=== PATIENT | male | born 1960 | race Caucasian/White ===

== ENCOUNTER 2020-09-10 05:53 | Emergency (ER) | payer MEDICARE, MEDICAID ==
[2020-09-10] MEDS ORDERED: Sodium Chloride 0.9% 10 ML Syringe FLUSH PRN (06:06)
--- NOTE | 2020-09-10 07:52 | EDM.PDOC ---
ED HPI GENERAL MEDICAL PROBLEM - General Chief Complaint: General Stated Complaint: altered mental status Time Seen by Provider: 09/10/20 06:10 Source of Information: Reports: RN Notes Reviewed History Limitations: Reports: No Limitations, Altered Mental Status, Other (non- verbal) - History of Present Illness INITIAL COMMENTS - FREE TEXT/NARRATIVE: Patient presented to the ED from [facility] because of altered level of consciousness, Rt facial droop and seem to be uncomfortable. He was incontinent of urine. there is no recent fever,chills, cough,cold. - Related Data Allergies Allergy/AdvReac Type Severity Reaction Status Date / Time No Known Allergies Allergy Verified 06/17/20 09:19 Home Meds: Home Meds Lidocaine 2% [Xylocaine 2% Jelly] 0.5 ml TOP Q2H PRN #60 ml 09/10/20 [Rx] Sulfamethoxazole/Trimethoprim [Bactrim Ds Tablet] 1 each PO BID #14 tablet 09/10/20 [Rx] Past Medical History Psychiatric History: Reports: Dementia Social & Family History - Family History Family Medical History: No Pertinent Family History - Tobacco Use Tobacco Use Status *Q: Unknown Ever Used Tobacco - Caffeine Use Caffeine Use: Reports: None ED ROS GENERAL - Review of Systems Review Of Systems: See Below HEENT: Reports: No Symptoms Respiratory: Reports: No Symptoms Cardiovascular: Reports: No Symptoms Endocrine: Reports: No Symptoms GI/Abdominal: Reports: No Symptoms : Reports: No Symptoms Musculoskeletal: Reports: No Symptoms Skin: Reports: No Symptoms Neurological: Reports: Other (non-verbal, No bill deficits) Psychiatric: Reports: No Symptoms Hematologic/Lymphatic: Reports: No Symptoms ED EXAM, GENERAL - Physical Exam Exam: See Below Exam Limited By: No Limitations General Appearance: Alert, No Apparent Distress Ears: Normal External Exam, Normal Canal, Hearing Grossly Normal Nose: Normal Inspection, Normal Mucosa, No Blood Throat/Mouth: Normal Inspection, Normal Lips, Normal Teeth Head: Atraumatic, Normocephalic Neck: Normal Inspection, Supple, Non-Tender, Full Range of Motion Respiratory/Chest: No Respiratory Distress, Lungs Clear, Normal Breath Sounds Cardiovascular: Normal Peripheral Pulses, Regular Rate, Rhythm, No Edema, No Gallop, No JVD, No Murmur, No Rub GI/Abdominal: Normal Bowel Sounds, Soft, Non-Tender, No Organomegaly, No Distention, No Abnormal Bruit Back Exam: Normal Inspection, Full Range of Motion Extremities: Normal Inspection, Normal Range of Motion, Non-Tender, No Pedal Edema, Normal Capillary Refill Neurological: Alert, CN II-XII Intact, Normal Gait, Normal Reflexes, No Motor/Sensory Deficits Psychiatric: Normal Affect, Normal Mood Course - Vital Signs Text/Narrative:: Labs/EKG/CXR/Head CT result was reviewed and discussed with staff Bladder Scan-significant amount of uring. More than 1 L Leg bag guthrie inserted Last Recorded V/S: Last Vital Signs Temp 36.8 C 09/10/20 06:04 Pulse 66 09/10/20 06:04 Resp 18 09/10/20 06:04 BP 112/63 09/10/20 06:04 Pulse Ox 99 09/10/20 06:04 - Orders/Labs/Meds Orders: Active Orders 24 hr Category Date Time Status Guthrie Catheter Insertion [Insert Urinary Catheter] [OM. Care 09/10/20 07:45 Ordered PC] Q24H Head wo Cont [CT] Stat Exams 09/10/20 06:06 Taken Saline Lock Insert [OM.PC] Routine Oth 09/10/20 06:06 Ordered EKG 12 Lead [EK] Routine Ther 09/10/20 06:06 Ordered Labs: Laboratory Tests 09/10/20 09/10/20 09/10/20 Range/Units 06:50 06:50 06:50 WBC 4.6 (3.2-10.1) x10-3/uL RBC 3.89 L (3.90-5.90) x10(6)uL Hgb 14.6 (12.9-17.7) g/dL Hct 42.3 (38.3-50.1) % MCV 108.8 H (80.8-98.7) fL MCH 37.5 H (27.0-33.3) pg MCHC 34.5 (28.7-35.3) g/dL RDW 12.5 (12.4-15.0) % Plt Count 229 (117-477) x10(3)uL MPV 8.1 (6.7-11.0) fL Neut % (Auto) 50.1 (40.3-71.8) % Lymph % (Auto) 32.1 (15.8-45.3) % [place] % (Auto) 13.9 (5.5-15.2) % Eos % (Auto) 2.5 (0.1-6.8) % Baso % (Auto) 1.4 (0.3-3.8) % Neut # (Auto) 2.3 (1.7-6.9) x10-3/uL Lymph # (Auto) 1.5 (0.5-4.5) x10-3/uL [place] # (Auto) 0.6 (0.0-1.2) x10-3/uL Eos # (Auto) 0.1 (0.0-0.6) x10-3/uL Baso # (Auto) 0.1 (0.0-0.3) x10-3/uL PT 10.3 (9.0-11.1) sec INR 0.95 L (1.00-1.24) APTT 22.1 L (24.4-33.2) SECONDS Sodium 140 (135-145) mmol/L Potassium 4.4 (3.5-5.3) mmol/L Chloride 102 (100-110) mmol/L Carbon Dioxide 27 (21-32) mmol/L BUN 13 (7-18) mg/dL Creatinine 1.0 (0.70-1.30) mg/dL Est Cr Clr Drug Dosing 74.10 mL/min Estimated GFR (MDRD) > 60 (>60) BUN/Creatinine Ratio 13.0 (9-20) Glucose 103 (80-116) mg/dL Calcium 8.7 (8.6-10.2) mg/dL Total Bilirubin 0.5 (0.1-1.3) mg/dL AST 32 H (5-25) IU/L ALT 24 (12-36) U/L Alkaline Phosphatase 101 (56-112) IU/L Troponin I (4.0-60.3) pg/mL Total Protein 6.9 (6.0-8.0) g/dL Albumin 3.1 L (3.2-4.6) g/dL Globulin 3.8 g/dL Albumin/Globulin Ratio 0.8 Urine Color (YELLOW) Urine Appearance (CLEAR) Urine pH (5.0-6.5) Ur Specific [place] (1.010-1.025) Urine Protein (NEGATIVE) mg/dL Urine Glucose (UA) (NORMAL) mg/dL Urine Ketones (NEGATIVE) mg/dL Urine Occult Blood (NEGATIVE) Urine Nitrite (NEGATIVE) Urine Bilirubin (NEGATIVE) Urine Urobilinogen (NEGATIVE) mg/dL Ur Leukocyte Esterase (NEGATIVE) Urine RBC (0-5) Urine WBC (0-5) Ur Squamous Epith Cells (NS,R,O) Urine Bacteria (NS) 09/10/20 09/10/20 Range/Units 06:50 07:20 WBC (3.2-10.1) x10-3/uL RBC (3.90-5.90) x10(6)uL Hgb (12.9-17.7) g/dL Hct (38.3-50.1) % MCV (80.8-98.7) fL MCH (27.0-33.3) pg MCHC (28.7-35.3) g/dL RDW (12.4-15.0) % Plt Count (117-477) x10(3)uL MPV (6.7-11.0) fL Neut % (Auto) (40.3-71.8) % Lymph % (Auto) (15.8-45.3) % [place] % (Auto) (5.5-15.2) % Eos % (Auto) (0.1-6.8) % Baso % (Auto) (0.3-3.8) % Neut # (Auto) (1.7-6.9) x10-3/uL Lymph # (Auto) (0.5-4.5) x10-3/uL [place] # (Auto) (0.0-1.2) x10-3/uL Eos # (Auto) (0.0-0.6) x10-3/uL Baso # (Auto) (0.0-0.3) x10-3/uL PT (9.0-11.1) sec INR (1.00-1.24) APTT (24.4-33.2) SECONDS Sodium (135-145) mmol/L Potassium (3.5-5.3) mmol/L Chloride (100-110) mmol/L Carbon Dioxide (21-32) mmol/L BUN (7-18) mg/dL Creatinine (0.70-1.30) mg/dL Est Cr Clr Drug Dosing mL/min Estimated GFR (MDRD) (>60) BUN/Creatinine Ratio (9-20) Glucose (80-116) mg/dL Calcium (8.6-10.2) mg/dL Total Bilirubin (0.1-1.3) mg/dL AST (5-25) IU/L ALT (12-36) U/L Alkaline Phosphatase (56-112) IU/L Troponin I 11.8 (4.0-60.3) pg/mL Total Protein (6.0-8.0) g/dL Albumin (3.2-4.6) g/dL Globulin g/dL Albumin/Globulin Ratio Urine Color Yellow (YELLOW) Urine Appearance Clear (CLEAR) Urine pH 7.0 H (5.0-6.5) Ur Specific [place] 1.005 L (1.010-1.025) Urine Protein Negative (NEGATIVE) mg/dL Urine Glucose (UA) Normal (NORMAL) mg/dL Urine Ketones Negative (NEGATIVE) mg/dL Urine Occult Blood Negative (NEGATIVE) Urine Nitrite Negative (NEGATIVE) Urine Bilirubin Negative (NEGATIVE) Urine Urobilinogen Normal (NEGATIVE) mg/dL Ur Leukocyte Esterase Negative (NEGATIVE) Urine RBC 0-5 (0-5) Urine WBC 0-5 (0-5) Ur Squamous Epith Cells Rare (NS,R,O) Urine Bacteria Rare H (NS) Meds: Medications Discontinued Medications Generic Name Dose Route Start Last Admin Trade Name Freq PRN Reason Stop Dose Admin Sodium Chloride 10 ml 09/10/20 06:06 09/10/20 06:19 Sodium Chloride 0.9% 10 Ml Syringe FLUSH 10 ml ASDIRECTED PRN Administration Keep Vein Open Departure - Departure Time of Disposition: 08:00 Disposition: DC/Tfer to Longterm [facility] 61 Condition: Good Clinical Impression: Urinary retention, Overflow incontinence of urine - Discharge Information Prescriptions: Sulfamethoxazole/Trimethoprim [Bactrim Ds Tablet] 1 each PO BID #14 tablet Lidocaine 2% [Xylocaine 2% Jelly] 0.5 ml TOP Q2H PRN #60 ml PRN Reason: Pain Instructions: Urinary Incontinence, Acute Urinary Retention, Male, [id number], Sulfamethoxazole; Trimethoprim, SMX-TMP tablets, Lidocaine jelly Referrals: Audrey Riddle NP [Primary Care Provider] - Forms: ED Department Discharge Additional Instructions: Please read discharge instructions on Urinary retention and overflow incontinence Keep the guthrie until he is able to void on his own Bactrim DS twice daily for 7 days Apply viscous lidocaine to the urethral opening every 1-2 hours as needed for pain due to guthrie Follow up with your doctor this week so he can be referred to see a Neurologist(brain specialist) for possible NPH-Normal Pressure Hydrocephalus Sepsis Event Note (ED) - Evaluation Sepsis Screening Result: No Definite Risk - My Orders Last 24 Hours: My Active Orders 09/10/20 06:06 Head wo Cont [CT] Stat Saline Lock Insert [OM.PC] Routine EKG 12 Lead [EK] Routine 09/10/20 07:45 Guthrie Catheter Insertion [Insert Urinary Catheter] [OM.PC] Q24H - Assessment/Plan Last 24 Hours: My Active Orders 09/10/20 06:06 Head wo Cont [CT] Stat Saline Lock Insert [OM.PC] Routine EKG 12 Lead [EK] Routine 09/10/20 07:45 Guthrie Catheter Insertion [Insert Urinary Catheter] [OM.PC] Q24H
--- NOTE | 2020-09-10 12:26 | CR ---
INDICATION: Unresponsive episode, non-verbal - unable to follow instructions. CHEST ONE VIEW: An AP portable upright view of the chest 09/10/20 was compared with 05/07/10 and 04/13/10. The inspiration is very poor emphasizing basilar markings and making it difficult to exclude patchy bronchopneumonia. The heart did not appear enlarged. The mediastinum was unremarkable. Overlying EKG leads are noted. No consolidating pneumonia or effusion was seen. IMPRESSION: No acute process - study limited by poor inspiration making it difficult to exclude minimal patchy bronchopneumonia at the lung bases. MTDD
--- NOTE | 2020-09-10 23:13 | PCM.EKG ---
#1 Interpretation EKG Date: 09/10/20 Time: 06:38 Rhythm: NSR Rate (Beats/Min): 88 Keeler: Normal P-Wave: Present QRS: Normal ST-T: Normal QT: Normal WV/PQ Interval: 140 Comparison: NA - No Prior EKG EKG Interpretation Comments: NSR PAC
== END 2020-09-10 09:36 ==
LOC: FB.ED 05:53
DX: R33.9 Retention of urine, unspecified (principal); N39.490 Overflow incontinence; F03.90 Unspecified dementia, unspecified severity, without behavioral disturbance, psychotic disturbance, mood disturbance, and anxiety
CPT/HCPCS: 36415; 51702; 70450; 71045; 80053; 81001; 84484; 85025; 85610; 85730; 93005; 99285-25

== ENCOUNTER 2020-11-27 10:43 | Inpatient (IN) | payer MEDICARE, MEDICAID ==
[2020-11-27] MEDS ORDERED: Magnesium Oxide 400 MG Tab PO ONE (11:49)
--- NOTE | 2020-11-27 12:00 | EDM.PDOC ---
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, sitting in recliner, PO dec'd to 78%, pt is 96-100% on RA here in ED pt admitted here 5d ago with dx of influenza B and pneumonia and HF, sent home yesterday on Cefdinir and Tamiflu, has been taking meds had urinary retention and SBP 88 4d ago and his Flomax was stopped, he was sent home yesterday back on Flomax and his furosemide was held his SBP has been fine, 114 at [facility] home today and >120 here in ED, however his CxR one view yesterday showed inc'd fluid c/w his admission CxR currently not walking, had been ambulatory in past none verbal here with 2 staff members no fever, has been eating pt with neg COVID yesterday, however he has not had COVID vaccine (declined by family) and was exposed to a staff member yesterday who had a positive COVID test, staff and long term members do not wear masks in the home DNR/DNI I did a MANDEEP on this pt 3d ago when crosscovering at night when he had urinary retention and needed to be catherized twice (400 ml the first time, 700 ml the second time), MANDEEP showed normal size prostate that was not tender/boggy/asymmetric, no nodules originally indication for Flomax not clear, pt may have had urinary retention from his psych meds - Related Data Allergies Allergy/AdvReac Type Severity Reaction Status Date / Time No Known Allergies Allergy Verified 11/23/20 00:11 Home Meds: Home Meds Calcium Carbonate/Vitamin D3 [Calcium 600Mg-D3 400 Unit Sfgl] 1 cap PO BID 11/22/20 [History] Citalopram [Citalopram HBr] 30 mg PO DAILY 11/22/20 [History] Docusate Sodium [Colace] 200 mg PO DAILY 11/22/20 [History] Folic Acid 1 mg PO DAILY 11/22/20 [History] Levothyroxine Sodium [Levothyroxine] 137 mcg PO 0600 11/22/20 [History] Magnesium Chloride [Magnesium] 64 mg PO DAILY 11/22/20 [History] Melatonin 3 mg PO BEDTIME 11/22/20 [History] Mineral Oil/Pet Hy-Phl Oint [Aquaphor Healing Ointment] 1 applic TOP BID 11/22/20 [History] busPIRone [Buspar] 30 mg PO BID 11/22/20 [History] calcium polycarbophiL [Fiber Tabs] 1 tab PO BID 11/22/20 [History] polyethylene glycoL 3350 [MiraLAX] 17 gm PO MOTH 11/22/20 [History] risperiDONE 0.5 mg PO BID 11/22/20 [History] traZODone 100 mg PO BEDTIME 11/22/20 [History] Cyanocobalamin (Vitamin B-12) [Vitamin B-12] 1,000 mcg PO DAILY 11/23/20 [History] Ibuprofen 600 mg PO Q8H PRN 11/23/20 [History] Ketoconazole [Nizoral 2% Shampoo] 1 applic TOP MOWEFR 11/23/20 [History] Mineral Oil/Pet Hy-Phl Oint [Aquaphor Healing Ointment] 1 applic TOP BID 11/23/20 [History] lamoTRIgine [Lamotrigine] 100 mg PO BID 11/23/20 [History] Azithromycin 500 mg PO DAILY #1 tablet 11/26/20 [Rx] Cefdinir 300 mg PO BID #12 capsule 11/26/20 [Rx] Finasteride 5 mg PO BEDTIME #30 tablet 11/26/20 [Rx] Oseltamivir [Tamiflu] 75 mg PO BID #5 cap 11/26/20 [Rx] Past Medical History HEENT History: Reports: Impaired Vision Gastrointestinal History: Reports: Chronic Constipation Genitourinary History: Reports: BPH Neurological History: Reports: Alzheimers Disease, Other (See Below) Other Neuro History: Down's Syndrome Psychiatric History: Reports: Dementia, OCD Endocrine/Metabolic History: Reports: Hypomagnesemia, Hypothyroidism, Vitamin D Deficiency Hematologic History: Reports: B12 Deficiency Dermatologic History: Reports: Seborrheic Dermatitis Social & Family History - Family History Family Medical History: No Pertinent Family History - Tobacco Use Tobacco Use Status *Q: Never Tobacco User - Caffeine Use Caffeine Use: Reports: Soda - Recreational Drug Use Recreational Drug Use: No ED ROS GENERAL - Review of Systems Review Of Systems: See Below Constitutional: Reports: No Symptoms HEENT: Reports: No Symptoms Respiratory: Reports: No Symptoms Cardiovascular: Reports: No Symptoms Endocrine: Reports: No Symptoms GI/Abdominal: Reports: No Symptoms : Reports: No Symptoms Musculoskeletal: Reports: No Symptoms Skin: Reports: No Symptoms Neurological: Reports: No Symptoms Psychiatric: Reports: No Symptoms Hematologic/Lymphatic: Reports: No Symptoms Immunologic: Reports: No Symptoms ED EXAM, GENERAL - Physical Exam Exam: See Below General Appearance: Alert, WD/WN, Other (pleasant, alert, sits on own, no dyspnea, no cough observed) Ears: Normal External Exam Nose: Normal Inspection Throat/Mouth: Normal Inspection, No Airway Compromise, Other (prominent tongue that he sticks out frequently, smaller upper lip, likely epicanthal eyelid folds (staff not sure if pt has Downs)) Neck: Supple, Non-Tender Respiratory/Chest: Crackles, Rales, Other (no inc'd exp phase, no retractions, no accessory muscles, coarse crackles/rales at bases, R>L, no wheeze). No: No Accessory Muscle Use, Chest Non-Tender, Respiratory Distress, Decreased Breath Sounds, Rhonchi, Wheezing, Stridor, Pleural Rub, Accessory Muscle Use, Retractions, Splinting, Prolonged Expiration Cardiovascular: Regular Rate, Rhythm, Other (2/6 KRISTIAN at LSB) GI/Abdominal: Soft, Non-Tender, No Distention Back Exam: Normal Inspection, Full Range of Motion. No: CVA Tenderness (R), CVA Tenderness (L) Extremities: Normal Inspection, Non-Tender, No Pedal Edema Neurological: Alert, CN II-XII Intact, No Motor/Sensory Deficits Psychiatric: Normal Affect, Normal Mood Skin Exam: Warm, Dry, Intact, Normal Color, No Rash Lymphatic: No Adenopathy Course - Vital Signs Last Recorded V/S: Last Vital Signs Temp 36.4 C 11/27/20 10:43 Pulse 74 11/27/20 10:43 Resp 20 11/27/20 10:43 BP 129/58 L 11/27/20 10:43 Pulse Ox 96 11/27/20 10:43 - Orders/Labs/Meds Orders: Active Orders 24 hr Category Date Time Status Admission Status [Patient Status] [ADT] Routine ADT 11/27/20 14:07 Ordered Bladder Scan [RC] ASDIRECTED Care 11/27/20 12:45 Active Chest 1V Frontal [CR] Stat Exams 11/27/20 11:25 Taken UA W/MICROSCOPIC [URIN] Stat Lab 11/27/20 11:23 Ordered EKG 12 Lead [EK] Routine Ther 11/27/20 11:24 Ordered Labs: Laboratory Tests 11/27/20 11/27/20 11/27/20 Range/Units 12:20 12:35 12:35 WBC 3.8 (3.2-10.1) x10-3/uL RBC 3.16 L (3.90-5.90) x10(6)uL Hgb 11.3 L (12.9-17.7) g/dL Hct 33.5 L (38.3-50.1) % MCV 106.0 H (80.8-98.7) fL MCH 35.7 H (27.0-33.3) pg MCHC 33.7 (28.7-35.3) g/dL RDW 13.5 (12.4-15.0) % Plt Count 298 (117-477) x10(3)uL MPV 7.3 (6.7-11.0) fL Neut % (Auto) 56.4 (40.3-71.8) % Lymph % (Auto) 19.1 (15.8-45.3) % [place] % (Auto) 18.1 H (5.5-15.2) % Eos % (Auto) 5.3 (0.1-6.8) % Baso % (Auto) 1.1 (0.3-3.8) % Neut # (Auto) 2.1 (1.7-6.9) x10-3/uL Lymph # (Auto) 0.7 (0.5-4.5) x10-3/uL [place] # (Auto) 0.7 (0.0-1.2) x10-3/uL Eos # (Auto) 0.2 (0.0-0.6) x10-3/uL Baso # (Auto) 0.0 (0.0-0.3) x10-3/uL PT 10.8 (9.0-11.1) sec INR 1.00 (1.00-1.24) Sodium (135-145) mmol/L Potassium (3.5-5.3) mmol/L Chloride (100-110) mmol/L Carbon Dioxide (21-32) mmol/L BUN (7-18) mg/dL Creatinine (0.70-1.30) mg/dL Est Cr Clr Drug Dosing mL/min Estimated GFR (MDRD) (>60) BUN/Creatinine Ratio (9-20) Glucose (80-116) mg/dL Calcium (8.6-10.2) mg/dL Total Bilirubin (0.1-1.3) mg/dL AST (5-25) IU/L ALT (12-36) U/L Alkaline Phosphatase (56-112) IU/L Troponin I (4.0-60.3) pg/mL C-Reactive Protein (0.5-0.9) mg/dL NT-Pro-B Natriuret Pep (<=125) pg/mL Total Protein (6.0-8.0) g/dL Albumin (3.2-4.6) g/dL Globulin g/dL Albumin/Globulin Ratio SARS-CoV-2 RNA (JUAN MIGUEL) Negative (NEGATIVE) 11/27/20 11/27/20 11/27/20 Range/Units 12:35 12:35 12:35 WBC (3.2-10.1) x10-3/uL RBC (3.90-5.90) x10(6)uL Hgb (12.9-17.7) g/dL Hct (38.3-50.1) % MCV (80.8-98.7) fL MCH (27.0-33.3) pg MCHC (28.7-35.3) g/dL RDW (12.4-15.0) % Plt Count (117-477) x10(3)uL MPV (6.7-11.0) fL Neut % (Auto) (40.3-71.8) % Lymph % (Auto) (15.8-45.3) % [place] % (Auto) (5.5-15.2) % Eos % (Auto) (0.1-6.8) % Baso % (Auto) (0.3-3.8) % Neut # (Auto) (1.7-6.9) x10-3/uL Lymph # (Auto) (0.5-4.5) x10-3/uL [place] # (Auto) (0.0-1.2) x10-3/uL Eos # (Auto) (0.0-0.6) x10-3/uL Baso # (Auto) (0.0-0.3) x10-3/uL PT (9.0-11.1) sec INR (1.00-1.24) Sodium 136 (135-145) mmol/L Potassium 4.2 (3.5-5.3) mmol/L Chloride 99 L (100-110) mmol/L Carbon Dioxide 29 (21-32) mmol/L BUN 13 (7-18) mg/dL Creatinine 0.8 (0.70-1.30) mg/dL Est Cr Clr Drug Dosing 83.28 mL/min Estimated GFR (MDRD) > 60 (>60) BUN/Creatinine Ratio 16.3 (9-20) Glucose 93 (80-116) mg/dL Calcium 8.1 L (8.6-10.2) mg/dL Total Bilirubin 0.3 (0.1-1.3) mg/dL AST 28 H D (5-25) IU/L ALT 22 D (12-36) U/L Alkaline Phosphatase 87 (56-112) IU/L Troponin I (4.0-60.3) pg/mL C-Reactive Protein 8.9 H* (0.5-0.9) mg/dL NT-Pro-B Natriuret Pep 241 H (<=125) pg/mL Total Protein 6.4 (6.0-8.0) g/dL Albumin 2.3 L (3.2-4.6) g/dL Globulin 4.1 g/dL Albumin/Globulin Ratio 0.6 SARS-CoV-2 RNA (JUAN MIGUEL) (NEGATIVE) 11/27/20 Range/Units 12:35 WBC (3.2-10.1) x10-3/uL RBC (3.90-5.90) x10(6)uL Hgb (12.9-17.7) g/dL Hct (38.3-50.1) % MCV (80.8-98.7) fL MCH (27.0-33.3) pg MCHC (28.7-35.3) g/dL RDW (12.4-15.0) % Plt Count (117-477) x10(3)uL MPV (6.7-11.0) fL Neut % (Auto) (40.3-71.8) % Lymph % (Auto) (15.8-45.3) % [place] % (Auto) (5.5-15.2) % Eos % (Auto) (0.1-6.8) % Baso % (Auto) (0.3-3.8) % Neut # (Auto) (1.7-6.9) x10-3/uL Lymph # (Auto) (0.5-4.5) x10-3/uL [place] # (Auto) (0.0-1.2) x10-3/uL Eos # (Auto) (0.0-0.6) x10-3/uL Baso # (Auto) (0.0-0.3) x10-3/uL PT (9.0-11.1) sec INR (1.00-1.24) Sodium (135-145) mmol/L Potassium (3.5-5.3) mmol/L Chloride (100-110) mmol/L Carbon Dioxide (21-32) mmol/L BUN (7-18) mg/dL Creatinine (0.70-1.30) mg/dL Est Cr Clr Drug Dosing mL/min Estimated GFR (MDRD) (>60) BUN/Creatinine Ratio (9-20) Glucose (80-116) mg/dL Calcium (8.6-10.2) mg/dL Total Bilirubin (0.1-1.3) mg/dL AST (5-25) IU/L ALT (12-36) U/L Alkaline Phosphatase (56-112) IU/L Troponin I 11.3 (4.0-60.3) pg/mL C-Reactive Protein (0.5-0.9) mg/dL NT-Pro-B Natriuret Pep (<=125) pg/mL Total Protein (6.0-8.0) g/dL Albumin (3.2-4.6) g/dL Globulin g/dL Albumin/Globulin Ratio SARS-CoV-2 RNA (JUAN MIGUEL) (NEGATIVE) Meds: Medications Discontinued Medications Generic Name Dose Route Start Last Admin Trade Name Freq PRN Reason Stop Dose Admin Magnesium Oxide 400 mg 11/27/20 11:49 Magnesium Oxide 400 Mg Tab PO 11/27/20 11:50 ONETIME ONE - Re-Assessments/Exams Free Text/Narrative Re-Assessment/Exam: 11/27/20 14:11 BNP actually better at 2x ULN now c/w 20x ULX 5d ago yet CxR 1v on prelim ED read with larger b/l pleural effusions c/w yesterday and inc'd markings in R lung field low WBC continues to be c/w influenza B COVID still needs to be considered given pt's exposure to COVID in past 24h and the possibility that he could have a 2nd virus continuing the Tamiflu and Cefdinir seems reasonable restarting daily furosemide and stopping Flomax seem reasonable, staff reports that urology was "trying Flomax for a month", yet anticholinergic effect of behavioral meds seem to be proximate cause of urinary retention as there was no BPH or prostate on my MANDEEP from 3d ago additional COVID testing may need to be done d/w [facility], pt is 11th on wait list, may be a bed tomorrow Dr Sarmiento hospitalist here called and accepted pt in admission, Dr Sarmiento had seen pt in ED here 5d ago and admitted him then with Dr Romero the hospitalist for 4d, Dr Sarmiento is now on hospital duty 2 staff members are in agreement with admission hospital RN notified ED registration notified, admit order placed pt alert and nontoxic, without dyspnea Departure - Departure Time of Disposition: 14:09 Disposition: Admitted As Inpatient 64 Condition: Good Clinical Impression: Hypoxia, CHF exacerbation, Bilateral pleural effusion, Influenza B - Discharge Information *PRESCRIPTION DRUG MONITORING PROGRAM REVIEWED*: Not Applicable *COPY OF PRESCRIPTION DRUG MONITORING REPORT IN PATIENT JOSE: Not Applicable Referrals: Audrey Riddle VEHICLE TRIMMER [Primary Care Provider] - Forms: ED Department Discharge Sepsis Event Note (ED) - Evaluation Sepsis Screening Result: No Definite Risk - Focused Exam Vital Signs: Vital Signs Temp Pulse Resp BP Pulse Ox 11/27/20 10:43 36.4 C 74 20 129/58 L 96 - My Orders Last 24 Hours: My Active Orders 11/27/20 11:23 UA W/MICROSCOPIC [URIN] Stat 11/27/20 11:24 EKG 12 Lead [EK] Routine 11/27/20 11:25 Chest 1V Frontal [CR] Stat 11/27/20 12:45 Bladder Scan [RC] ASDIRECTED 11/27/20 14:07 Admission Status [Patient Status] [ADT] Routine - Assessment/Plan Last 24 Hours: My Active Orders 11/27/20 11:23 UA W/MICROSCOPIC [URIN] Stat 11/27/20 11:24 EKG 12 Lead [EK] Routine 11/27/20 11:25 Chest 1V Frontal [CR] Stat 11/27/20 12:45 Bladder Scan [RC] ASDIRECTED 11/27/20 14:07 Admission Status [Patient Status] [ADT] Routine
[2020-11-27] MEDS ORDERED: Magnesium Oxide 400 MG Tab ONE (14:20)
--- NOTE | 2020-11-27 17:56 | CR ---
INDICATION: Short of breath. CHEST, ONE VIEW: An AP portable upright view of the chest was obtained 11/27/20 - very poor inspiration is noted compared with the previous study. Bilateral infiltration is again noted, much more prominent on the right than the left and allowing for the poor inspiration, it may be unchanged from the previous study. It is also possible that there is a slight increase in severity of the infiltration bilaterally. Overlying EKG leads are noted. The heart size is difficult to evaluate due to the poor inspiration. IMPRESSION: Compared with 11/26/20 - continued bilateral infiltration, much more prominent on the right than left, with small pleural effusions, especially on the right. Findings may be on the basis of aspiration pneumonia or possibly CHF with acute pulmonary edema and interstitial lung edema in a patient with COPD. MTDD
[2020-11-27] MEDS ORDERED: Acetaminophen 325 MG Tab PO PRN (18:13)
[2020-11-27] MEDS ORDERED: Sodium Phosphate,Monobasic/Sodium Phosphate,Dibasic Enema 133 ML Bottle RECTAL ONE (18:36)
--- NOTE | 2020-11-27 18:45 | PCM.HP.2 ---
H&P History of Present Illness - General Date of Service: 11/27/20 Admit Problem/Dx: Admission Diagnosis/Problem Admission Diagnosis/Problem Heart failure Source of Information: Old Records, Provider History Limitations: Reports: Altered Mental Status - History of Present Illness Initial Comments - Free Text/Narative: 60-year-old gentleman with a history of Down syndrome, visual difficulties, chronic constipation, BPH, Alzheimer's disease, and recent admission for positive test for influenza type B with superimposed likely bacterial pneumonia was brought back to the emergency department after being discharged yesterday due to shortness of breath and pulse oximetry of 98%. He was noted to have a pulse ox of 96 to 100% in the emergency department. He was started on Flomax to help with his BPH symptoms/urinary retention prior to his previous admission and he was discharged with his Flomax restarted but his 6 was withheld. View of labs shows that his B [employer] has significantly improved however. Checks x-ray in the emergency department shows trouble worsening of likely bacterial pneumonia. - Related Data Allergies/Adverse Reactions: Allergies Allergy/AdvReac Type Severity Reaction Status Date / Time No Known Allergies Allergy Verified 11/27/20 17:27 Home Medications: Home Meds Calcium Carbonate/Vitamin D3 [Calcium 600Mg-D3 400 Unit Sfgl] 1 cap PO BID 11/22/20 [History] Citalopram [Citalopram HBr] 30 mg PO DAILY 11/22/20 [History] Docusate Sodium [Colace] 200 mg PO DAILY 11/22/20 [History] Folic Acid 1 mg PO DAILY 11/22/20 [History] Levothyroxine Sodium [Levothyroxine] 137 mcg PO 0600 11/22/20 [History] Magnesium Chloride [Magnesium] 64 mg PO DAILY 11/22/20 [History] Melatonin 3 mg PO BEDTIME 11/22/20 [History] Mineral Oil/Pet Hy-Phl Oint [Aquaphor Healing Ointment] 1 applic TOP BID 11/22/20 [History] busPIRone [Buspar] 30 mg PO BID 11/22/20 [History] calcium polycarbophiL [Fiber Tabs] 1 tab PO BID 11/22/20 [History] polyethylene glycoL 3350 [MiraLAX] 17 gm PO MOTH 11/22/20 [History] risperiDONE 0.5 mg PO BID 11/22/20 [History] traZODone 100 mg PO BEDTIME 11/22/20 [History] Cyanocobalamin (Vitamin B-12) [Vitamin B-12] 1,000 mcg PO DAILY 11/23/20 [History] Ibuprofen 600 mg PO Q8H PRN 11/23/20 [History] Ketoconazole [Nizoral 2% Shampoo] 1 applic TOP MOWEFR 11/23/20 [History] Mineral Oil/Pet Hy-Phl Oint [Aquaphor Healing Ointment] 1 applic TOP BID 11/23/20 [History] lamoTRIgine [Lamotrigine] 100 mg PO BID 11/23/20 [History] Azithromycin 500 mg PO DAILY #1 tablet 11/26/20 [Rx] Cefdinir 300 mg PO BID #12 capsule 11/26/20 [Rx] Finasteride 5 mg PO BEDTIME #30 tablet 11/26/20 [Rx] Oseltamivir [Tamiflu] 75 mg PO BID #5 cap 11/26/20 [Rx] Past Medical History HEENT History: Reports: Impaired Vision, Other (See Below) Other HEENT History: Blepharitis Gastrointestinal History: Reports: Chronic Constipation Genitourinary History: Reports: BPH, Other (See Below) Other Genitourinary History: Benign prostatic hyperplasia Neurological History: Reports: Alzheimers Disease, Other (See Below) Other Neuro History: Down's Syndrome Psychiatric History: Reports: Alzheimers Disease, Dementia, OCD Endocrine/Metabolic History: Reports: Hypomagnesemia, Hypothyroidism, Vitamin D Deficiency Hematologic History: Reports: B12 Deficiency, Other (See Below) Other Hematologic History: Neutropenia, hypocalcemia Dermatologic History: Reports: Seborrheic Dermatitis, Other (See Below) Other Dermatologic History: Perioral dermatitis - Past Surgical History Male Surgical History: Reports: Other (See Below) Other Male Surgeries/Procedures: Proctoscopy Social & Family History - Family History Family Medical History: No Pertinent Family History - Tobacco Use Tobacco Use Status *Q: Never Tobacco User - Caffeine Use Caffeine Use: Reports: None - Recreational Drug Use Recreational Drug Use: No H&P Review of Systems - Review of Systems: Review Of Systems: See Below General: Reports: Weakness, Fatigue HEENT: Reports: No Symptoms Pulmonary: Reports: Shortness of Breath, Wheezing Cardiovascular: Reports: No Symptoms Gastrointestinal: Reports: Abdominal Pain, Constipation Genitourinary: Reports: Retention Musculoskeletal: Reports: No Symptoms Skin: Reports: No Symptoms Psychiatric: Reports: Depression, Agitation Neurological: Reports: Other (Alzheimer's dementia) Hematologic/Lymphatic: Reports: No Symptoms Immunologic: Reports: No Symptoms Exam - Exam Exam: See Below - Vital Signs Vital Signs: Last Vital Signs Temp 36.7 C 11/27/20 16:00 Pulse 70 11/27/20 16:00 Resp 14 11/27/20 16:00 BP 111/48 L 11/27/20 16:00 Pulse Ox 98 11/27/20 16:00 Weight: 82.191 kg - Exam Quality Assessment: Supplemental Oxygen, DVT Prophylaxis General: Mild Distress Lungs: Decreased Breath Sounds, Crackles Cardiovascular: Regular Rate, Regular Rhythm GI/Abdominal Exam: Distended, Tender, Abnormal Bowel Sounds Back Exam: Normal Inspection Extremities: Normal Inspection, No Pedal Edema Peripheral Pulses: 2+: Radial (L), Radial (R), Dorsalis Pedis (L), Dorsalis Pedis (R) Skin: Warm, Dry Neurological: Cranial Nerves Intact Psychiatric: Anxious - Patient Data Lab Results Last 24 hrs: Laboratory Results - last 24 hr 11/27/20 11/27/20 11/27/20 Range/Units 12:20 12:35 12:35 WBC 3.8 (3.2-10.1) x10-3/uL RBC 3.16 L (3.90-5.90) x10(6)uL Hgb 11.3 L (12.9-17.7) g/dL Hct 33.5 L (38.3-50.1) % MCV 106.0 H (80.8-98.7) fL MCH 35.7 H (27.0-33.3) pg MCHC 33.7 (28.7-35.3) g/dL RDW 13.5 (12.4-15.0) % Plt Count 298 (117-477) x10(3)uL MPV 7.3 (6.7-11.0) fL Neut % (Auto) 56.4 (40.3-71.8) % Lymph % (Auto) 19.1 (15.8-45.3) % Reynolds % (Auto) 18.1 H (5.5-15.2) % Eos % (Auto) 5.3 (0.1-6.8) % Baso % (Auto) 1.1 (0.3-3.8) % Neut # (Auto) 2.1 (1.7-6.9) x10-3/uL Lymph # (Auto) 0.7 (0.5-4.5) x10-3/uL Reynolds # (Auto) 0.7 (0.0-1.2) x10-3/uL Eos # (Auto) 0.2 (0.0-0.6) x10-3/uL Baso # (Auto) 0.0 (0.0-0.3) x10-3/uL PT 10.8 (9.0-11.1) sec INR 1.00 (1.00-1.24) Sodium (135-145) mmol/L Potassium (3.5-5.3) mmol/L Chloride (100-110) mmol/L Carbon Dioxide (21-32) mmol/L BUN (7-18) mg/dL Creatinine (0.70-1.30) mg/dL Est Cr Clr Drug Dosing mL/min Estimated GFR (MDRD) (>60) BUN/Creatinine Ratio (9-20) Glucose (80-116) mg/dL Calcium (8.6-10.2) mg/dL Total Bilirubin (0.1-1.3) mg/dL AST (5-25) IU/L ALT (12-36) U/L Alkaline Phosphatase (56-112) IU/L Troponin I (4.0-60.3) pg/mL C-Reactive Protein (0.5-0.9) mg/dL NT-Pro-B Natriuret Pep (<=125) pg/mL Total Protein (6.0-8.0) g/dL Albumin (3.2-4.6) g/dL Globulin g/dL Albumin/Globulin Ratio SARS-CoV-2 RNA ([facility] MIGUEL) Negative (NEGATIVE) 11/27/20 11/27/20 11/27/20 Range/Units 12:35 12:35 12:35 WBC (3.2-10.1) x10-3/uL RBC (3.90-5.90) x10(6)uL Hgb (12.9-17.7) g/dL Hct (38.3-50.1) % MCV (80.8-98.7) fL MCH (27.0-33.3) pg MCHC (28.7-35.3) g/dL RDW (12.4-15.0) % Plt Count (117-477) x10(3)uL MPV (6.7-11.0) fL Neut % (Auto) (40.3-71.8) % Lymph % (Auto) (15.8-45.3) % Reynolds % (Auto) (5.5-15.2) % Eos % (Auto) (0.1-6.8) % Baso % (Auto) (0.3-3.8) % Neut # (Auto) (1.7-6.9) x10-3/uL Lymph # (Auto) (0.5-4.5) x10-3/uL Reynolds # (Auto) (0.0-1.2) x10-3/uL Eos # (Auto) (0.0-0.6) x10-3/uL Baso # (Auto) (0.0-0.3) x10-3/uL PT (9.0-11.1) sec INR (1.00-1.24) Sodium 136 (135-145) mmol/L Potassium 4.2 (3.5-5.3) mmol/L Chloride 99 L (100-110) mmol/L Carbon Dioxide 29 (21-32) mmol/L BUN 13 (7-18) mg/dL Creatinine 0.8 (0.70-1.30) mg/dL Est Cr Clr Drug Dosing 83.28 mL/min Estimated GFR (MDRD) > 60 (>60) BUN/Creatinine Ratio 16.3 (9-20) Glucose 93 (80-116) mg/dL Calcium 8.1 L (8.6-10.2) mg/dL Total Bilirubin 0.3 (0.1-1.3) mg/dL AST 28 H D (5-25) IU/L ALT 22 D (12-36) U/L Alkaline Phosphatase 87 (56-112) IU/L Troponin I (4.0-60.3) pg/mL C-Reactive Protein 8.9 H* (0.5-0.9) mg/dL NT-Pro-B Natriuret Pep 241 H (<=125) pg/mL Total Protein 6.4 (6.0-8.0) g/dL Albumin 2.3 L (3.2-4.6) g/dL Globulin 4.1 g/dL Albumin/Globulin Ratio 0.6 SARS-CoV-2 RNA (JUAN MIGUEL) (NEGATIVE) 11/27/20 Range/Units 12:35 WBC (3.2-10.1) x10-3/uL RBC (3.90-5.90) x10(6)uL Hgb (12.9-17.7) g/dL Hct (38.3-50.1) % MCV (80.8-98.7) fL MCH (27.0-33.3) pg MCHC (28.7-35.3) g/dL RDW (12.4-15.0) % Plt Count (117-477) x10(3)uL MPV (6.7-11.0) fL Neut % (Auto) (40.3-71.8) % Lymph % (Auto) (15.8-45.3) % Reynolds % (Auto) (5.5-15.2) % Eos % (Auto) (0.1-6.8) % Baso % (Auto) (0.3-3.8) % Neut # (Auto) (1.7-6.9) x10-3/uL Lymph # (Auto) (0.5-4.5) x10-3/uL Reynolds # (Auto) (0.0-1.2) x10-3/uL Eos # (Auto) (0.0-0.6) x10-3/uL Baso # (Auto) (0.0-0.3) x10-3/uL PT (9.0-11.1) sec INR (1.00-1.24) Sodium (135-145) mmol/L Potassium (3.5-5.3) mmol/L Chloride (100-110) mmol/L Carbon Dioxide (21-32) mmol/L BUN (7-18) mg/dL Creatinine (0.70-1.30) mg/dL Est Cr Clr Drug Dosing mL/min Estimated GFR (MDRD) (>60) BUN/Creatinine Ratio (9-20) Glucose (80-116) mg/dL Calcium (8.6-10.2) mg/dL Total Bilirubin (0.1-1.3) mg/dL AST (5-25) IU/L ALT (12-36) U/L Alkaline Phosphatase (56-112) IU/L Troponin I 11.3 (4.0-60.3) pg/mL C-Reactive Protein (0.5-0.9) mg/dL NT-Pro-B Natriuret Pep (<=125) pg/mL Total Protein (6.0-8.0) g/dL Albumin (3.2-4.6) g/dL Globulin g/dL Albumin/Globulin Ratio SARS-CoV-2 RNA (JUAN MIGUEL) (NEGATIVE) Result Diagrams: 11/27/20 12:35 11/27/20 12:35 Sepsis Event Note - Evaluation Sepsis Screening Result: No Definite Risk - Focused Exam Vital Signs: Vital Signs Temp Pulse Resp BP Pulse Ox 11/27/20 16:00 36.7 C 70 14 111/48 L 98 11/27/20 10:43 36.4 C 74 20 129/58 L 96 - Problem List (1) Down syndrome SNOMED Code(s): 73767370 ICD Code: Q90.9 - DOWN SYNDROME, UNSPECIFIED Status: Chronic Current Visit: Yes (2) Encounter for palliative care SNOMED Code(s): 677738072, 358433450 ICD Code: Z51.5 - ENCOUNTER FOR PALLIATIVE CARE Status: Chronic Current Visit: Yes (3) Alzheimer's dementia without behavioral disturbance SNOMED Code(s): 05260639 ICD Code: G30.9 - ALZHEIMER'S DISEASE, UNSPECIFIED; F02.80 - DEMENTIA IN OTH DISEASES CLASSD ELSWHR W/O BEHAVRL DISTURB Status: Chronic Current Visit: Yes (4) Bilateral pleural effusion SNOMED Code(s): 814958763 ICD Code: J90 - PLEURAL EFFUSION, NOT ELSEWHERE CLASSIFIED Status: Acute Current Visit: Yes (5) CHF exacerbation SNOMED Code(s): 639377925, 89111890136407 ICD Code: I50.9 - HEART FAILURE, UNSPECIFIED Status: Acute Current Visit: Yes (6) Influenza B SNOMED Code(s): 88880204 ICD Code: J10.1 - FLU DUE TO OTH IDENT INFLUENZA VIRUS W OTH RESP MANIFEST Status: Acute Current Visit: Yes (7) Community acquired pneumonia SNOMED Code(s): 854653811 ICD Code: J18.9 - PNEUMONIA, UNSPECIFIED ORGANISM Status: Acute Current Visit: No Problem Details: Bilateral Qualifiers: Lung location: lower lobe of lung (8) Elevated brain natriuretic peptide (BNP) level SNOMED Code(s): 300830391, 364719724 ICD Code: R79.89 - OTHER SPECIFIED ABNORMAL FINDINGS OF BLOOD CHEMISTRY Sta tus: Acute Current Visit: No (9) Macrocytic anemia SNOMED Code(s): 80968129 ICD Code: D53.9 - NUTRITIONAL ANEMIA, UNSPECIFIED Status: Chronic Current Visit: No (10) Urinary retention SNOMED Code(s): 763898271 ICD Code: R33.9 - RETENTION OF URINE, UNSPECIFIED Status: Chronic Current Visit: No (11) Overflow incontinence of urine SNOMED Code(s): 049948440 ICD Code: N39.490 - OVERFLOW INCONTINENCE Status: Chronic Current Visit: No Problem List Initiated/Reviewed/Updated: Yes Orders Last 24hrs: Active Orders 24 hr Category Date Time Status Admission Status [Patient Status] [ADT] Routine ADT 11/27/20 14:07 Active Patient Status [ADT] Routine ADT 11/27/20 15:39 Active Antiembolic Devices [RC] .Routine Care 11/27/20 15:40 Active Bladder Scan [RC] ASDIRECTED Care 11/27/20 12:45 Active Pulse Oximetry [RC] .PRN Care 11/27/20 15:39 Active Vital Signs [RC] QSHIFT Care 11/27/20 15:39 Active Mechanical Soft Diet [DIET] Diet 11/27/20 Dinner Active UA W/MICROSCOPIC [URIN] Stat Lab 11/27/20 11:23 Ordered Acetaminophen [TylenoL] Med 11/27/20 18:13 Active 650 mg PO Q6H PRN Citalopram [Celexa] Med 11/28/20 09:00 Active 30 mg PO DAILY Cyanocobalamin (Vitamin B12) [Vitamin B12] Med 11/28/20 09:00 Active 1,000 mcg PO DAILY Docusate Sodium [Colace] Med 11/28/20 09:00 Active 200 mg PO DAILY Folic Acid Med 11/28/20 09:00 Active 1 mg PO DAILY Levothyroxine [Levothroid] Med 11/28/20 06:00 Active 137 mcg PO DAILY@0600 Magnesium Chloride [Mag-64] Med 11/28/20 09:00 Active 64 mg PO DAILY Melatonin Med 11/27/20 21:00 Active 3 mg PO BEDTIME Mineral Oil/Petrolatum [Hydrophor Oint] Med 11/27/20 21:00 Active 0 gm TOP BID Oseltamivir [Tamiflu] Med 11/27/20 21:00 Active 75 mg PO BID busPIRone [Buspar] Med 11/27/20 21:00 Active 30 mg PO BID lamoTRIgine Med 11/27/20 21:00 Active 100 mg PO BID polyethylene glycoL 3350 [MiraLAX] Med 11/30/20 09:00 Active 17 gm PO MOTH risperiDONE [RisperiDAL] Med 11/27/20 21:00 Active 0.5 mg PO BID traZODone Med 11/27/20 21:00 Active 100 mg PO BEDTIME DVT/VTE Prophylaxis Reflex [OM.PC] Per Unit Routine Oth 11/27/20 15:39 Ordered Resuscitation Status Routine Resus Stat 11/27/20 15:39 Ordered EKG 12 Lead [EK] Routine Ther 11/27/20 11:24 Ordered Medication Orders Acetaminophen (Acetaminophen 325 Mg Tab) 650 mg PO Q6H PRN PRN Reason: Pain Buspirone HCl (Buspirone 15 Mg Tab) 30 mg PO BID [facility] Citalopram Hydrobromide (Citalopram 10 Mg Tab) 30 mg PO DAILY [facility] Cyanocobalamin (Cyanocobalamin (Vitamin B12) 1,000 Mcg Tab) 1,000 mcg PO DAILY [facility] Docusate Sodium (Docusate Sodium 100 Mg Cap) 200 mg PO DAILY [facility] Folic Acid (Folic Acid 1 Mg Tab) 1 mg PO DAILY [facility] Lamotrigine (Lamotrigine 100 Mg Tab) 100 mg PO BID [facility] Levothyroxine Sodium (Levothyroxine 137 Mcg Tab) 137 mcg PO DAILY@0600 [facility] Magnesium Chloride (Magnesium Chloride 64 Mg Tab.Er) 64 mg PO DAILY [facility] Melatonin (Melatonin 3 Mg Tab) 3 mg PO BEDTIME [facility] Mineral Oil/White Petrolatum (Mineral Oil/Petrolatum,Hydrophilic Ointment 100 Gm Jar) 0 gm TOP BID [facility] Oseltamivir Phosphate (Oseltamivir 75 Mg Cap) 75 mg PO BID [facility] Stop: 11/28/20 21:01 Polyethylene Glycol (Polyethylene Glycol 3350 Powder 17 Gm Packet) 17 gm PO MOTH [facility] Risperidone (Risperidone 0.5 Mg Tab) 0.5 mg PO BID [facility] Trazodone HCl (Trazodone 100 Mg Tab) 100 mg PO BEDTIME [facility] Assessment/Plan Comment:: 1. Admit patient to inpatient status. Patient will be treated for chronic conditions including urinary retention and constipation with home medications, bladder scans, straight cath for urinary relief when necessary, and fleets enema/stool softeners when necessary 2. Continue oral cefdinir. Patient does not have IV access due to extremely difficult IV access 3. Restart patient's home Lasix 4. Continue Tamiflu until complete 5. DVT prophylaxis: Enoxaparin 40 mg subcu daily 6. Disposition: Patient is on a waiting list for urological consult at [facility]. If patient does not get transferred for urology consult patient will likely be discharged in 2 to 3 days pending improvement.
[2020-11-27] MEDS ORDERED: Enoxaparin 40 MG/0.4 ML Syringe SUBCUT ONE (18:54)
[2020-11-27] MEDS: lamoTRIgine 100 MG Tab PO SCH (20:35)
[2020-11-27] MEDS: busPIRone 15 MG Tab PO SCH (20:36)
[2020-11-27] MEDS: Mineral Oil/Petrolatum,Hydrophilic Ointment 100 GM Jar TOP SCH (20:36)
[2020-11-27] MEDS: Melatonin 3 MG Tab PO SCH (20:39)
[2020-11-27] MEDS: risperiDONE 0.5 MG Tab PO SCH (20:42)
[2020-11-27] MEDS: traZODone 100 MG Tab PO SCH (20:44)
[2020-11-27] MEDS: Oseltamivir 75 MG Cap PO SCH (20:45)
[2020-11-27] MEDS ORDERED: PETROLATUM TOP SCH (21:00)
[2020-11-27] MEDS ORDERED: MINERAL OIL TOP SCH (21:00)
[2020-11-27] MEDS ORDERED: [UNRECOGNIZED DRUG - OTHER] TOP SCH (21:00)
[2020-11-27] MEDS: Cefdinir 300 MG Cap PO SCH (22:30)
[2020-11-28] MEDS ORDERED: Sennosides 8.6 MG Tab PO SCH (09:30)
[2020-11-28] MEDS: busPIRone 15 MG Tab PO SCH ×2 (10:32→20:49)
[2020-11-28] MEDS: Citalopram 10 MG Tab PO SCH (10:32)
[2020-11-28] MEDS: Oseltamivir 75 MG Cap PO SCH ×2 (10:33→20:49)
[2020-11-28] MEDS: lamoTRIgine 100 MG Tab PO SCH ×2 (10:33→20:49)
[2020-11-28] MEDS: risperiDONE 0.5 MG Tab PO SCH ×2 (10:33→20:49)
[2020-11-28] MEDS: Docusate Sodium 100 MG Cap PO SCH (10:33)
[2020-11-28] MEDS: Cyanocobalamin (Vitamin B12) 1,000 MCG Tab PO SCH (10:33)
[2020-11-28] MEDS: Magnesium Chloride 64 MG Tab.ER PO SCH (10:33)
[2020-11-28] MEDS: Folic Acid 1 MG Tab PO SCH (10:33)
[2020-11-28] MEDS: Mineral Oil/Petrolatum,Hydrophilic Ointment 100 GM Jar TOP SCH ×2 (10:34→20:50)
--- NOTE | 2020-11-28 10:38 | PCM.PN ---
- General Info Date of Service: 11/28/20 Admission Dx/Problem (Free Text): Admission Diagnosis/Problem Admission Diagnosis/Problem Heart failure Subjective Update: Nursing reports that the patient had a very difficult night and did not sleep well. He did have a small bowel movement following enema. Bowel movement was soft, formed, but small. Functional Status: Reports: Pain Controlled, Tolerating Diet, Ambulating - Review of Systems General: Reports: Fatigue HEENT: Reports: No Symptoms Pulmonary: Reports: Wheezing Cardiovascular: Reports: No Symptoms Gastrointestinal: Reports: Abdominal Pain Genitourinary: Reports: Retention Musculoskeletal: Reports: No Symptoms Skin: Reports: No Symptoms Neurological: Reports: Difficulty Walking, Weakness Psychiatric: Reports: Other (Alzheimer's, Down syndrome) - Patient Data Vitals - Most Recent: Last Vital Signs Temp 36.7 C 11/28/20 08:00 Pulse 73 11/28/20 08:00 Resp 22 H 11/28/20 08:00 BP 86/45 L 11/28/20 08:00 Pulse Ox 94 L 11/28/20 08:00 Weight - Most Recent: 82.191 kg Lab Results Last 24 Hours: Laboratory Results - last 24 hr 11/27/20 11/27/20 11/27/20 Range/Units 12:20 12:35 12:35 WBC 3.8 (3.2-10.1) x10-3/uL RBC 3.16 L (3.90-5.90) x10(6)uL Hgb 11.3 L (12.9-17.7) g/dL Hct 33.5 L (38.3-50.1) % MCV 106.0 H (80.8-98.7) fL MCH 35.7 H (27.0-33.3) pg MCHC 33.7 (28.7-35.3) g/dL RDW 13.5 (12.4-15.0) % Plt Count 298 (117-477) x10(3)uL MPV 7.3 (6.7-11.0) fL Neut % (Auto) 56.4 (40.3-71.8) % Lymph % (Auto) 19.1 (15.8-45.3) % Swain % (Auto) 18.1 H (5.5-15.2) % Eos % (Auto) 5.3 (0.1-6.8) % Baso % (Auto) 1.1 (0.3-3.8) % Neut # (Auto) 2.1 (1.7-6.9) x10-3/uL Lymph # (Auto) 0.7 (0.5-4.5) x10-3/uL Swain # (Auto) 0.7 (0.0-1.2) x10-3/uL Eos # (Auto) 0.2 (0.0-0.6) x10-3/uL Baso # (Auto) 0.0 (0.0-0.3) x10-3/uL PT 10.8 (9.0-11.1) sec INR 1.00 (1.00-1.24) Sodium (135-145) mmol/L Potassium (3.5-5.3) mmol/L Chloride (100-110) mmol/L Carbon Dioxide (21-32) mmol/L BUN (7-18) mg/dL Creatinine (0.70-1.30) mg/dL Est Cr Clr Drug Dosing mL/min Estimated GFR (MDRD) (>60) BUN/Creatinine Ratio (9-20) Glucose (80-116) mg/dL Calcium (8.6-10.2) mg/dL Total Bilirubin (0.1-1.3) mg/dL AST (5-25) IU/L ALT (12-36) U/L Alkaline Phosphatase (56-112) IU/L Troponin I (4.0-60.3) pg/mL C-Reactive Protein (0.5-0.9) mg/dL NT-Pro-B Natriuret Pep (<=125) pg/mL Total Protein (6.0-8.0) g/dL Albumin (3.2-4.6) g/dL Globulin g/dL Albumin/Globulin Ratio SARS-CoV-2 RNA (JUAN MIGUEL) Negative (NEGATIVE) 11/27/20 11/27/20 11/27/20 Range/Units 12:35 12:35 12:35 WBC (3.2-10.1) x10-3/uL RBC (3.90-5.90) x10(6)uL Hgb (12.9-17.7) g/dL Hct (38.3-50.1) % MCV (80.8-98.7) fL MCH (27.0-33.3) pg MCHC (28.7-35.3) g/dL RDW (12.4-15.0) % Plt Count (117-477) x10(3)uL MPV (6.7-11.0) fL Neut % (Auto) (40.3-71.8) % Lymph % (Auto) (15.8-45.3) % Swain % (Auto) (5.5-15.2) % Eos % (Auto) (0.1-6.8) % Baso % (Auto) (0.3-3.8) % Neut # (Auto) (1.7-6.9) x10-3/uL Lymph # (Auto) (0.5-4.5) x10-3/uL Swain # (Auto) (0.0-1.2) x10-3/uL Eos # (Auto) (0.0-0.6) x10-3/uL Baso # (Auto) (0.0-0.3) x10-3/uL PT (9.0-11.1) sec INR (1.00-1.24) Sodium 136 (135-145) mmol/L Potassium 4.2 (3.5-5.3) mmol/L Chloride 99 L (100-110) mmol/L Carbon Dioxide 29 (21-32) mmol/L BUN 13 (7-18) mg/dL Creatinine 0.8 (0.70-1.30) mg/dL Est Cr Clr Drug Dosing 83.28 mL/min Estimated GFR (MDRD) > 60 (>60) BUN/Creatinine Ratio 16.3 (9-20) Glucose 93 (80-116) mg/dL Calcium 8.1 L (8.6-10.2) mg/dL Total Bilirubin 0.3 (0.1-1.3) mg/dL AST 28 H D (5-25) IU/L ALT 22 D (12-36) U/L Alkaline Phosphatase 87 (56-112) IU/L Troponin I (4.0-60.3) pg/mL C-Reactive Protein 8.9 H* (0.5-0.9) mg/dL NT-Pro-B Natriuret Pep 241 H (<=125) pg/mL Total Protein 6.4 (6.0-8.0) g/dL Albumin 2.3 L (3.2-4.6) g/dL Globulin 4.1 g/dL Albumin/Globulin Ratio 0.6 SARS-CoV-2 RNA (JUAN MIGUEL) (NEGATIVE) 11/27/20 Range/Units 12:35 WBC (3.2-10.1) x10-3/uL RBC (3.90-5.90) x10(6)uL Hgb (12.9-17.7) g/dL Hct (38.3-50.1) % MCV (80.8-98.7) fL MCH (27.0-33.3) pg MCHC (28.7-35.3) g/dL RDW (12.4-15.0) % Plt Count (117-477) x10(3)uL MPV (6.7-11.0) fL Neut % (Auto) (40.3-71.8) % Lymph % (Auto) (15.8-45.3) % Swain % (Auto) (5.5-15.2) % Eos % (Auto) (0.1-6.8) % Baso % (Auto) (0.3-3.8) % Neut # (Auto) (1.7-6.9) x10-3/uL Lymph # (Auto) (0.5-4.5) x10-3/uL Swain # (Auto) (0.0-1.2) x10-3/uL Eos # (Auto) (0.0-0.6) x10-3/uL Baso # (Auto) (0.0-0.3) x10-3/uL PT (9.0-11.1) sec INR (1.00-1.24) Sodium (135-145) mmol/L Potassium (3.5-5.3) mmol/L Chloride (100-110) mmol/L Carbon Dioxide (21-32) mmol/L BUN (7-18) mg/dL Creatinine (0.70-1.30) mg/dL Est Cr Clr Drug Dosing mL/min Estimated GFR (MDRD) (>60) BUN/Creatinine Ratio (9-20) Glucose (80-116) mg/dL Calcium (8.6-10.2) mg/dL Total Bilirubin (0.1-1.3) mg/dL AST (5-25) IU/L ALT (12-36) U/L Alkaline Phosphatase (56-112) IU/L Troponin I 11.3 (4.0-60.3) pg/mL C-Reactive Protein (0.5-0.9) mg/dL NT-Pro-B Natriuret Pep (<=125) pg/mL Total Protein (6.0-8.0) g/dL Albumin (3.2-4.6) g/dL Globulin g/dL Albumin/Globulin Ratio SARS-CoV-2 RNA (JUAN MIGUEL) (NEGATIVE) Med Orders - Current: Current Medications Acetaminophen (Acetaminophen 325 Mg Tab) 650 mg PO Q6H PRN PRN Reason: Pain Buspirone HCl (Buspirone 15 Mg Tab) 30 mg PO BID [facility] Last Admin: 11/27/20 20:36 Dose: 30 mg Documented by: Cefdinir (Cefdinir 300 Mg Cap) 300 mg PO BID [facility] Stop: 12/02/20 10:00 Last Admin: 11/27/20 22:30 Dose: 300 mg Documented by: Citalopram Hydrobromide (Citalopram 10 Mg Tab) 30 mg PO DAILY [facility] Cyanocobalamin (Cyanocobalamin (Vitamin B12) 1,000 Mcg Tab) 1,000 mcg PO DAILY [facility] Docusate Sodium (Docusate Sodium 100 Mg Cap) 200 mg PO DAILY [facility] Folic Acid (Folic Acid 1 Mg Tab) 1 mg PO DAILY [facility] Furosemide (Furosemide 20 Mg Tab) 20 mg PO DAILY [facility] Lamotrigine (Lamotrigine 100 Mg Tab) 100 mg PO BID [facility] Last Admin: 11/27/20 20:35 Dose: 100 mg Documented by: Levothyroxine Sodium (Levothyroxine 137 Mcg Tab) 137 mcg PO DAILY@0600 [facility] Last Admin: 11/28/20 06:48 Dose: 137 mcg Documented by: Magnesium Chloride (Magnesium Chloride 64 Mg Tab.Er) 64 mg PO DAILY [facility] Melatonin (Melatonin 3 Mg Tab) 3 mg PO BEDTIME [facility] Last Admin: 11/27/20 20:39 Dose: 3 mg Documented by: Mineral Oil/White Petrolatum (Mineral Oil/Petrolatum,Hydrophilic Ointment 100 Gm Jar) 0 gm TOP BID [facility] Last Admin: 11/27/20 20:36 Dose: 1 applic Documented by: Oseltamivir Phosphate (Oseltamivir 75 Mg Cap) 75 mg PO BID [facility] Stop: 11/28/20 21:01 Last Admin: 11/27/20 20:45 Dose: 75 mg Documented by: Polyethylene Glycol (Polyethylene Glycol 3350 Powder 17 Gm Packet) 17 gm PO MOTH [facility] Risperidone (Risperidone 0.5 Mg Tab) 0.5 mg PO BID [facility] Last Admin: 11/27/20 20:42 Dose: 0.5 mg Documented by: Trazodone HCl (Trazodone 100 Mg Tab) 100 mg PO BEDTIME [facility] Last Admin: 11/27/20 20:44 Dose: 100 mg Documented by: Discontinued Medications Enoxaparin Sodium (Enoxaparin 40 Mg/0.4 Ml Syringe) 40 mg SUBCUT ONETIME ONE Stop: 11/27/20 18:55 Last Admin: 11/27/20 20:49 Dose: 40 mg Documented by: Magnesium Oxide (Magnesium Oxide 400 Mg Tab) 400 mg PO ONETIME ONE Stop: 11/27/20 11:50 Last Admin: 11/27/20 14:21 Dose: 400 mg Documented by: Magnesium Oxide (Magnesium Oxide 400 Mg Tab) Confirm Administered Dose 400 mg .ROUTE .STK-MED ONE Stop: 11/27/20 14:21 Last Admin: 11/27/20 15:09 Dose: Not Given Documented by: Senna (Sennosides 8.6 Mg Tab) 8.6 mg PO DAILY [facility] Stop: 11/28/20 10:00 Sodium Biphosphate/Sodium Phosphate (Sodium Phosphate,Monobasic/Sodium Phosphate,Dibasic Enema 133 Ml Bottle) 133 ml RECTAL ONETIME ONE Stop: 11/27/20 18:37 Last Admin: 11/27/20 22:00 Dose: 133 ml Documented by: Comments:: Patient is sleeping soundly in his bed at 10:30 AM. He did not react to palpation of the abdomen or to Mendez's punch bilaterally, he did not wake up during the physical exam, he is snoring a little bit - Exam Quality Assessment: Supplemental Oxygen, DVT Prophylaxis General: Other (Very sleepy, baseline) Lungs: Other (Patient was snoring a little bit, he has end inspiratory wheezes at the bilateral bases) Cardiovascular: Regular Rate, Regular Rhythm GI/Abdominal Exam: Normal Bowel Sounds, Soft, Non-Tender Back Exam: Normal Inspection. No: CVA Tenderness (R), CVA Tenderness (L) Extremities: No Pedal Edema, Other (Bilateral lower extremity stasis dermatitis) Peripheral Pulses: 1+: Dorsalis Pedis (L), Dorsalis Pedis (R), 2+: Radial (L), Radial (R) Skin: Warm, Dry, Intact Neurological: No New Focal Deficit Psy/Mental Status: Other (Very tired, did not wake up during physical exam) - Patient Data Lab Results Last 24 hrs: Laboratory Results - last 24 hr 11/27/20 11/27/20 11/27/20 Range/Units 12:20 12:35 12:35 WBC 3.8 (3.2-10.1) x10-3/uL RBC 3.16 L (3.90-5.90) x10(6)uL Hgb 11.3 L (12.9-17.7) g/dL Hct 33.5 L (38.3-50.1) % MCV 106.0 H (80.8-98.7) fL MCH 35.7 H (27.0-33.3) pg MCHC 33.7 (28.7-35.3) g/dL RDW 13.5 (12.4-15.0) % Plt Count 298 (117-477) x10(3)uL MPV 7.3 (6.7-11.0) fL Neut % (Auto) 56.4 (40.3-71.8) % Lymph % (Auto) 19.1 (15.8-45.3) % Swain % (Auto) 18.1 H (5.5-15.2) % Eos % (Auto) 5.3 (0.1-6.8) % Baso % (Auto) 1.1 (0.3-3.8) % Neut # (Auto) 2.1 (1.7-6.9) x10-3/uL Lymph # (Auto) 0.7 (0.5-4.5) x10-3/uL Swain # (Auto) 0.7 (0.0-1.2) x10-3/uL Eos # (Auto) 0.2 (0.0-0.6) x10-3/uL Baso # (Auto) 0.0 (0.0-0.3) x10-3/uL PT 10.8 (9.0-11.1) sec INR 1.00 (1.00-1.24) Sodium (135-145) mmol/L Potassium (3.5-5.3) mmol/L Chloride (100-110) mmol/L Carbon Dioxide (21-32) mmol/L BUN (7-18) mg/dL Creatinine (0.70-1.30) mg/dL Est Cr Clr Drug Dosing mL/min Estimated GFR (MDRD) (>60) BUN/Creatinine Ratio (9-20) Glucose (80-116) mg/dL Calcium (8.6-10.2) mg/dL Total Bilirubin (0.1-1.3) mg/dL AST (5-25) IU/L ALT (12-36) U/L Alkaline Phosphatase (56-112) IU/L Troponin I (4.0-60.3) pg/mL C-Reactive Protein (0.5-0.9) mg/dL NT-Pro-B Natriuret Pep (<=125) pg/mL Total Protein (6.0-8.0) g/dL Albumin (3.2-4.6) g/dL Globulin g/dL Albumin/Globulin Ratio SARS-CoV-2 RNA ([facility]UAN MIGUEL) Negative (NEGATIVE) 11/27/20 11/27/20 11/27/20 Range/Units 12:35 12:35 12:35 WBC (3.2-10.1) x10-3/uL RBC (3.90-5.90) x10(6)uL Hgb (12.9-17.7) g/dL Hct (38.3-50.1) % MCV (80.8-98.7) fL MCH (27.0-33.3) pg MCHC (28.7-35.3) g/dL RDW (12.4-15.0) % Plt Count (117-477) x10(3)uL MPV (6.7-11.0) fL Neut % (Auto) (40.3-71.8) % Lymph % (Auto) (15.8-45.3) % Swain % (Auto) (5.5-15.2) % Eos % (Auto) (0.1-6.8) % Baso % (Auto) (0.3-3.8) % Neut # (Auto) (1.7-6.9) x10-3/uL Lymph # (Auto) (0.5-4.5) x10-3/uL Swain # (Auto) (0.0-1.2) x10-3/uL Eos # (Auto) (0.0-0.6) x10-3/uL Baso # (Auto) (0.0-0.3) x10-3/uL PT (9.0-11.1) sec INR (1.00-1.24) Sodium 136 (135-145) mmol/L Potassium 4.2 (3.5-5.3) mmol/L Chloride 99 L (100-110) mmol/L Carbon Dioxide 29 (21-32) mmol/L BUN 13 (7-18) mg/dL Creatinine 0.8 (0.70-1.30) mg/dL Est Cr Clr Drug Dosing 83.28 mL/min Estimated GFR (MDRD) > 60 (>60) BUN/Creatinine Ratio 16.3 (9-20) Glucose 93 (80-116) mg/dL Calcium 8.1 L (8.6-10.2) mg/dL Total Bilirubin 0.3 (0.1-1.3) mg/dL AST 28 H D (5-25) IU/L ALT 22 D (12-36) U/L Alkaline Phosphatase 87 (56-112) IU/L Troponin I (4.0-60.3) pg/mL C-Reactive Protein 8.9 H* (0.5-0.9) mg/dL NT-Pro-B Natriuret Pep 241 H (<=125) pg/mL Total Protein 6.4 (6.0-8.0) g/dL Albumin 2.3 L (3.2-4.6) g/dL Globulin 4.1 g/dL Albumin/Globulin Ratio 0.6 SARS-CoV-2 RNA ([facility]IG[facility]) (NEGATIVE) 11/27/20 Range/Units 12:35 WBC (3.2-10.1) x10-3/uL RBC (3.90-5.90) x10(6)uL Hgb (12.9-17.7) g/dL Hct (38.3-50.1) % MCV (80.8-98.7) fL MCH (27.0-33.3) pg MCHC (28.7-35.3) g/dL RDW (12.4-15.0) % Plt Count (117-477) x10(3)uL MPV (6.7-11.0) fL Neut % (Auto) (40.3-71.8) % Lymph % (Auto) (15.8-45.3) % Swain % (Auto) (5.5-15.2) % Eos % (Auto) (0.1-6.8) % Baso % (Auto) (0.3-3.8) % Neut # (Auto) (1.7-6.9) x10-3/uL Lymph # (Auto) (0.5-4.5) x10-3/uL Swain # (Auto) (0.0-1.2) x10-3/uL Eos # (Auto) (0.0-0.6) x10-3/uL Baso # (Auto) (0.0-0.3) x10-3/uL PT (9.0-11.1) sec INR (1.00-1.24) Sodium (135-145) mmol/L Potassium (3.5-5.3) mmol/L Chloride (100-110) mmol/L Carbon Dioxide (21-32) mmol/L BUN (7-18) mg/dL Creatinine (0.70-1.30) mg/dL Est Cr Clr Drug Dosing mL/min Estimated GFR (MDRD) (>60) BUN/Creatinine Ratio (9-20) Glucose (80-116) mg/dL Calcium (8.6-10.2) mg/dL Total Bilirubin (0.1-1.3) mg/dL AST (5-25) IU/L ALT (12-36) U/L Alkaline Phosphatase (56-112) IU/L Troponin I 11.3 (4.0-60.3) pg/mL C-Reactive Protein (0.5-0.9) mg/dL NT-Pro-B Natriuret Pep (<=125) pg/mL Total Protein (6.0-8.0) g/dL Albumin (3.2-4.6) g/dL Globulin g/dL Albumin/Globulin Ratio SARS-CoV-2 RNA ([facility]IG[facility]) (NEGATIVE) Result Diagrams: 11/27/20 12:35 11/27/20 12:35 Sepsis Event Note - Evaluation Sepsis Screening Result: No Definite Risk - Focused Exam Vital Signs: Vital Signs Temp Pulse Resp BP Pulse Ox 11/28/20 08:00 36.7 C 73 22 H 86/45 L 94 L 11/28/20 00:00 95 18 92 L - Problem List & Annotations (1) Down syndrome SNOMED Code(s): 21115706 Code(s): Q90.9 - DOWN SYNDROME, UNSPECIFIED Status: Chronic Current Visit: Yes (2) Encounter for palliative care SNOMED Code(s): 455001768, 829560440 Code(s): Z51.5 - ENCOUNTER FOR PALLIATIVE CARE Status: Chronic Current Visit: Yes (3) Alzheimer's dementia without behavioral disturbance SNOMED Code(s): 24937885 Code(s): G30.9 - ALZHEIMER'S DISEASE, UNSPECIFIED; F02.80 - DEMENTIA IN OTH DISEASES CLASSD ELSWHR W/O BEHAVRL DISTURB Status: Chronic Current Visit: Yes (4) Bilateral pleural effusion SNOMED Code(s): 102275937 Code(s): J90 - PLEURAL EFFUSION, NOT ELSEWHERE CLASSIFIED Status: Acute Current Visit: Yes (5) CHF exacerbation SNOMED Code(s): 568201942, 76869871315072 Code(s): I50.9 - HEART FAILURE, UNSPECIFIED Status: Acute Current Visit: Yes (6) Influenza B SNOMED Code(s): 31403769 Code(s): J10.1 - FLU DUE TO OTH IDENT INFLUENZA VIRUS W OTH RESP MANIFEST Status: Acute Current Visit: Yes (7) Community acquired pneumonia SNOMED Code(s): 328674293 Code(s): J18.9 - PNEUMONIA, UNSPECIFIED ORGANISM Status: Acute Current Visit: No Qualifiers: Lung location: lower lobe of lung Annotation/Comment:: Bilateral (8) Elevated brain natriuretic peptide (BNP) level SNOMED Code(s): 987338669, 997227175 Code(s): R79.89 - OTHER SPECIFIED ABNORMAL FINDINGS OF BLOOD CHEMISTRY Status: Acute Current Visit: No (9) Macrocytic anemia SNOMED Code(s): 67716388 Code(s): D53.9 - NUTRITIONAL ANEMIA, UNSPECIFIED Status: Chronic Current Visit: No (10) Urinary retention SNOMED Code(s): 318037782 Code(s): R33.9 - RETENTION OF URINE, UNSPECIFIED Status: Chronic Current Visit: No (11) Overflow incontinence of urine SNOMED Code(s): 237725967 Code(s): N39.490 - OVERFLOW INCONTINENCE Status: Chronic Current Visit: No - Problem List Review Problem List Initiated/Reviewed/Updated: Yes - My Orders Last 24 Hours: My Active Orders 11/27/20 15:39 Patient Status [ADT] Routine Pulse Oximetry [RC] .PRN Vital Signs [RC] QSHIFT DVT/VTE Prophylaxis Reflex [OM.PC] Per Unit Routine Resuscitation Status Routine 11/27/20 15:40 Antiembolic Devices [RC] .Routine 11/27/20 Dinner Mechanical Soft Diet [DIET] 11/27/20 18:13 Acetaminophen [TylenoL] 650 mg PO Q6H PRN 11/27/20 21:00 Cefdinir [Omnicef] 300 mg PO BID Melatonin 3 mg PO BEDTIME Mineral Oil/Petrolatum [Hydrophor Oint] 0 gm TOP BID Oseltamivir [Tamiflu] 75 mg PO BID busPIRone [Buspar] 30 mg PO BID lamoTRIgine 100 mg PO BID risperiDONE [RisperiDAL] 0.5 mg PO BID traZODone 100 mg PO BEDTIME 11/28/20 06:00 Levothyroxine [Levothroid] 137 mcg PO DAILY@0600 11/28/20 09:00 Citalopram [Celexa] 30 mg PO DAILY Cyanocobalamin (Vitamin B12) [Vitamin B12] 1,000 mcg PO DAILY Docusate Sodium [Colace] 200 mg PO DAILY Folic Acid 1 mg PO DAILY Furosemide [Lasix] 20 mg PO DAILY Magnesium Chloride [Mag-64] 64 mg PO DAILY 11/30/20 09:00 polyethylene glycoL 3350 [MiraLAX] 17 gm PO MOTH - Plan Plan:: 1. Admit patient to inpatient status. Patient will be treated for chronic conditions including urinary retention and constipation with home medications, bladder scans, straight cath for urinary relief when necessary, and fleets enema/stool softeners when necessary. Patient will be given senna today, further recommendations based on efficacy. 2. Continue oral cefdinir. Patient does not have IV access due to extremely difficult IV access 3. Restarted patient's home Lasix 4. Continue Tamiflu until complete 5. DVT prophylaxis: Enoxaparin 40 mg subcu daily 6. Disposition: Patient is on a waiting list for urological consult at [facility]. If patient does not get transferred for urology consult patient will likely be discharged in 2 to 3 days pending improvement.
[2020-11-28] MEDS: Furosemide 20 MG Tab PO SCH (10:41)
[2020-11-28] MEDS: Cefdinir 300 MG Cap PO SCH ×2 (10:56→20:49)
[2020-11-28] MEDS: Melatonin 3 MG Tab PO SCH (20:49)
[2020-11-28] MEDS: traZODone 100 MG Tab PO SCH (20:50)
[2020-11-28] MEDS: Sodium Phosphate,Monobasic/Sodium Phosphate,Dibasic Enema 133 ML Bottle RECTAL ONE ×2 (20:54→22:06)
[2020-11-29] MEDS ORDERED: Sennosides 8.6 MG Tab PO PRN (10:00)
--- NOTE | 2020-11-29 10:04 | PCM.PN ---
- General Info Date of Service: 11/29/20 Admission Dx/Problem (Free Text): Admission Diagnosis/Problem Admission Diagnosis/Problem Heart failure Subjective Update: Patient is nonverbal but he did open his eyes and look at me when I spoke to him this morning, no distress or pain facial expression. Patient is essentially nonverbal and review of systems is limited Functional Status: Reports: Pain Controlled, Tolerating Diet, Ambulating, Uri nating - Review of Systems General: Reports: No Symptoms HEENT: Reports: No Symptoms Pulmonary: Reports: No Symptoms Cardiovascular: Reports: No Symptoms Gastrointestinal: Reports: No Symptoms Genitourinary: Reports: No Symptoms Musculoskeletal: Reports: No Symptoms Skin: Reports: No Symptoms Neurological: Reports: No Symptoms Psychiatric: Reports: No Symptoms - Patient Data Vitals - Most Recent: Last Vital Signs Temp 36.6 C 11/28/20 22:00 Pulse 67 11/28/20 22:00 Resp 18 11/28/20 22:00 BP 117/69 11/28/20 22:00 Pulse Ox 100 11/28/20 22:00 Weight - Most Recent: 82.191 kg Lab Results Last 24 Hours: Laboratory Results - last 24 hr 11/27/20 Range/Units 11:23 Urine Color Yellow (YELLOW) Urine Appearance Clear (CLEAR) Urine pH 8.0 H (5.0-6.5) Ur Specific [place] 1.010 (1.010-1.025) Urine Protein Negative (NEGATIVE) mg/dL Urine Glucose (UA) Normal (NORMAL) mg/dL Urine Ketones Negative (NEGATIVE) mg/dL Urine Occult Blood Negative (NEGATIVE) Urine Nitrite Negative (NEGATIVE) Urine Bilirubin Negative (NEGATIVE) Urine Urobilinogen Normal (NEGATIVE) mg/dL Ur Leukocyte Esterase Negative (NEGATIVE) Urine RBC 0-5 (0-5) Urine WBC 0-5 (0-5) Ur Squamous Epith Cells Few H (NS,R,O) Urine Bacteria Few H (NS) Med Orders - Current: Current Medications Acetaminophen (Acetaminophen 325 Mg Tab) 650 mg PO Q6H PRN PRN Reason: Pain Buspirone HCl (Buspirone 15 Mg Tab) 30 mg PO BID [facility] Last Admin: 11/28/20 20:49 Dose: 30 mg Documented by: Cefdinir (Cefdinir 300 Mg Cap) 300 mg PO BID [facility] Stop: 12/02/20 10:00 Last Admin: 11/28/20 20:49 Dose: 300 mg Documented by: Citalopram Hydrobromide (Citalopram 10 Mg Tab) 30 mg PO DAILY [facility] Last Admin: 11/28/20 10:32 Dose: 30 mg Documented by: Cyanocobalamin (Cyanocobalamin (Vitamin B12) 1,000 Mcg Tab) 1,000 mcg PO DAILY [facility] Last Admin: 11/28/20 10:33 Dose: 1,000 mcg Documented by: Docusate Sodium (Docusate Sodium 100 Mg Cap) 200 mg PO DAILY [facility] Last Admin: 11/28/20 10:33 Dose: 200 mg Documented by: Folic Acid (Folic Acid 1 Mg Tab) 1 mg PO DAILY [facility] Last Admin: 11/28/20 10:33 Dose: 1 mg Documented by: Furosemide (Furosemide 20 Mg Tab) 20 mg PO DAILY [facility] Last Admin: 11/28/20 10:41 Dose: 20 mg Documented by: Lamotrigine (Lamotrigine 100 Mg Tab) 100 mg PO BID [facility] Last Admin: 11/28/20 20:49 Dose: 100 mg Documented by: Levothyroxine Sodium (Levothyroxine 137 Mcg Tab) 137 mcg PO DAILY@0600 [facility] Last Admin: 11/29/20 06:19 Dose: 137 mcg Documented by: Magnesium Chloride (Magnesium Chloride 64 Mg Tab.Er) 64 mg PO DAILY [facility] Last Admin: 11/28/20 10:33 Dose: 64 mg Documented by: Melatonin (Melatonin 3 Mg Tab) 3 mg PO BEDTIME [facility] Last Admin: 11/28/20 20:49 Dose: 3 mg Documented by: Mineral Oil/White Petrolatum (Mineral Oil/Petrolatum,Hydrophilic Ointment 100 Gm Jar) 0 gm TOP BID [facility] Last Admin: 11/28/20 20:50 Dose: 1 applic Documented by: Polyethylene Glycol (Polyethylene Glycol 3350 Powder 17 Gm Packet) 17 gm PO MOTH [facility] Risperidone (Risperidone 0.5 Mg Tab) 0.5 mg PO BID [facility] Last Admin: 11/28/20 20:49 Dose: 0.5 mg Documented by: Trazodone HCl (Trazodone 100 Mg Tab) 100 mg PO BEDTIME [facility] Last Admin: 11/28/20 20:50 Dose: 100 mg Documented by: Discontinued Medications Enoxaparin Sodium (Enoxaparin 40 Mg/0.4 Ml Syringe) 40 mg SUBCUT ONETIME ONE Stop: 11/27/20 18:55 Last Admin: 11/27/20 20:49 Dose: 40 mg Documented by: Magnesium Oxide (Magnesium Oxide 400 Mg Tab) 400 mg PO ONETIME ONE Stop: 11/27/20 11:50 Last Admin: 11/27/20 14:21 Dose: 400 mg Documented by: Magnesium Oxide (Magnesium Oxide 400 Mg Tab) Confirm Administered Dose 400 mg .ROUTE .STK-MED ONE Stop: 11/27/20 14:21 Last Admin: 11/27/20 15:09 Dose: Not Given Documented by: Oseltamivir Phosphate (Oseltamivir 75 Mg Cap) 75 mg PO BID [facility] Stop: 11/28/20 21:01 Last Admin: 11/28/20 20:49 Dose: 75 mg Documented by: Senna (Sennosides 8.6 Mg Tab) 8.6 mg PO DAILY [facility] Stop: 11/28/20 10:00 Last Admin: 11/28/20 10:41 Dose: 8.6 mg Documented by: Sodium Biphosphate/Sodium Phosphate (Sodium Phosphate,Monobasic/Sodium Phosphate,Dibasic Enema 133 Ml Bottle) 133 ml RECTAL ONETIME ONE Stop: 11/27/20 18:37 Last Admin: 11/27/20 22:00 Dose: 133 ml Documented by: Sodium Biphosphate/Sodium Phosphate (Sodium Phosphate,Monobasic/Sodium Phosphate,Dibasic Enema 133 Ml Bottle) 133 ml RECTAL ONETIME ONE Stop: 11/28/20 18:30 Last Admin: 11/28/20 22:06 Dose: Not Given Documented by: Comments:: Patient sleeping on his left side, mild snoring, appears comfortable, patient awoke during the physical exam, patient is essentially nonverbal, he did not react to the physical exam - Exam Quality Assessment: Supplemental Oxygen, DVT Prophylaxis General: Alert, Cooperative, No Acute Distress HEENT: EOMI Lungs: Clear to Auscultation, Other (Patient laying left lateral, there were no crackles in the dependent areas of the left lung) Cardiovascular: Regular Rate, Other (Heart sounds are distant difficult to auscultate) GI/Abdominal Exam: Normal Bowel Sounds, Soft, Non-Tender Back Exam: Normal Inspection. No: CVA Tenderness (R), CVA Tenderness (L) Extremities: No Pedal Edema Peripheral Pulses: 1+: Dorsalis Pedis (L), Dorsalis Pedis (R), 2+: Radial (L), Radial (R) Skin: Warm, Dry Neurological: No New Focal Deficit Psy/Mental Status: Alert - Patient Data Lab Results Last 24 hrs: Laboratory Results - last 24 hr 11/27/20 Range/Units 11:23 Urine Color Yellow (YELLOW) Urine Appearance Clear (CLEAR) Urine pH 8.0 H (5.0-6.5) Ur Specific [place] 1.010 (1.010-1.025) Urine Protein Negative (NEGATIVE) mg/dL Urine Glucose (UA) Normal (NORMAL) mg/dL Urine Ketones Negative (NEGATIVE) mg/dL Urine Occult Blood Negative (NEGATIVE) Urine Nitrite Negative (NEGATIVE) Urine Bilirubin Negative (NEGATIVE) Urine Urobilinogen Normal (NEGATIVE) mg/dL Ur Leukocyte Esterase Negative (NEGATIVE) Urine RBC 0-5 (0-5) Urine WBC 0-5 (0-5) Ur Squamous Epith Cells Few H (NS,R,O) Urine Bacteria Few H (NS) Result Diagrams: 11/27/20 12:35 11/27/20 12:35 Sepsis Event Note - Evaluation Sepsis Screening Result: No Definite Risk - Focused Exam Vital Signs: Vital Signs Temp Pulse Resp BP Pulse Ox 11/28/20 22:00 36.6 C 67 18 117/69 100 - Problem List & Annotations (1) Down syndrome SNOMED Code(s): 44650553 Code(s): Q90.9 - DOWN SYNDROME, UNSPECIFIED Status: Chronic Current Visit: Yes (2) Encounter for palliative care SNOMED Code(s): 657283744, 172525692 Code(s): Z51.5 - ENCOUNTER FOR PALLIATIVE CARE Status: Chronic Current Visit: Yes (3) Alzheimer's dementia without behavioral disturbance SNOMED Code(s): 19266161 Code(s): G30.9 - ALZHEIMER'S DISEASE, UNSPECIFIED; F02.80 - DEMENTIA IN OTH DISEASES CLASSD ELSWHR W/O BEHAVRL DISTURB Status: Chronic Current Visit: Yes (4) Bilateral pleural effusion SNOMED Code(s): 516211924 Code(s): J90 - PLEURAL EFFUSION, NOT ELSEWHERE CLASSIFIED Status: Acute Current Visit: Yes (5) CHF exacerbation SNOMED Code(s): 144789103, 50088489761291 Code(s): I50.9 - HEART FAILURE, UNSPECIFIED Status: Acute Current Visit: Yes (6) Influenza B SNOMED Code(s): 79088973 Code(s): J10.1 - FLU DUE TO OTH IDENT INFLUENZA VIRUS W OTH RESP MANIFEST Status: Acute Current Visit: Yes (7) Community acquired pneumonia SNOMED Code(s): 861139452 Code(s): J18.9 - PNEUMONIA, UNSPECIFIED ORGANISM Status: Acute Current Visit: No Qualifiers: Lung location: lower lobe of lung Annotation/Comment:: Bilateral (8) Elevated brain natriuretic peptide (BNP) level SNOMED Code(s): 147207909, 195438842 Code(s): R79.89 - OTHER SPECIFIED ABNORMAL FINDINGS OF BLOOD CHEMISTRY Status: Acute Current Visit: No (9) Macrocytic anemia SNOMED Code(s): 42657441 Code(s): D53.9 - NUTRITIONAL ANEMIA, UNSPECIFIED Status: Chronic Current Visit: No (10) Urinary retention SNOMED Code(s): 376393302 Code(s): R33.9 - RETENTION OF URINE, UNSPECIFIED Status: Chronic Current Visit: No (11) Overflow incontinence of urine SNOMED Code(s): 193182094 Code(s): N39.490 - OVERFLOW INCONTINENCE Status: Chronic Current Visit: No (12) Chronic constipation SNOMED Code(s): 701279995 Code(s): K59.09 - OTHER CONSTIPATION Status: Chronic Current Visit: Yes - Problem List Review Problem List Initiated/Reviewed/Updated: Yes - My Orders Last 24 Hours: My Active Orders 11/28/20 09:00 Citalopram [Celexa] 30 mg PO DAILY Cyanocobalamin (Vitamin B12) [Vitamin B12] 1,000 mcg PO DAILY Docusate Sodium [Colace] 200 mg PO DAILY Folic Acid 1 mg PO DAILY Furosemide [Lasix] 20 mg PO DAILY Magnesium Chloride [Mag-64] 64 mg PO DAILY 11/30/20 09:00 polyethylene glycoL 3350 [MiraLAX] 17 gm PO MOTH - Plan Plan:: 1. Admit patient to inpatient status. Patient will be treated for chronic conditions including urinary retention and constipation with home medications, bladder scans, straight cath for urinary relief when necessary, and fleets enema/stool softeners when necessary. Patient will be given senna and a second enema. Patient had significant bowel movement and good relief. We will start giving the patient senna every night at bedtime. Patient will be sent home with senna to add to his daily Dulcolax regimen. 2. Continue oral cefdinir. Patient does not have IV access due to extremely difficult IV access 3. Restarted patient's home Lasix 4. Tamiflu complete 5. DVT prophylaxis: Enoxaparin 40 mg subcu daily 6. Disposition: Patient is on a waiting list for urological consult at [facility]. If patient does not get transferred for urology consult patient will likely be discharged tomorrow to his correction.
[2020-11-29] MEDS: Furosemide 20 MG Tab PO SCH (10:21)
[2020-11-29] MEDS: risperiDONE 0.5 MG Tab PO SCH ×2 (10:21→20:10)
[2020-11-29] MEDS: Magnesium Chloride 64 MG Tab.ER PO SCH (10:21)
[2020-11-29] MEDS: lamoTRIgine 100 MG Tab PO SCH ×2 (10:21→20:10)
[2020-11-29] MEDS: Cefdinir 300 MG Cap PO SCH ×2 (10:22→20:10)
[2020-11-29] MEDS: Docusate Sodium 100 MG Cap PO SCH (10:22)
[2020-11-29] MEDS: Mineral Oil/Petrolatum,Hydrophilic Ointment 100 GM Jar TOP SCH ×2 (10:22→20:10)
[2020-11-29] MEDS: busPIRone 15 MG Tab PO SCH ×2 (10:22→20:10)
[2020-11-29] MEDS: Cyanocobalamin (Vitamin B12) 1,000 MCG Tab PO SCH (10:22)
[2020-11-29] MEDS: Citalopram 10 MG Tab PO SCH (10:22)
[2020-11-29] MEDS: Folic Acid 1 MG Tab PO SCH (10:22)
[2020-11-29] MEDS: Tamsulosin 0.4 MG Cap.ER PO SCH (15:56)
[2020-11-29] MEDS: Melatonin 3 MG Tab PO SCH (20:10)
[2020-11-29] MEDS: traZODone 100 MG Tab PO SCH (20:10)
[2020-11-30] MEDS: Cyanocobalamin (Vitamin B12) 1,000 MCG Tab PO SCH (08:23)
[2020-11-30] MEDS: Magnesium Chloride 64 MG Tab.ER PO SCH (08:23)
[2020-11-30] MEDS: Citalopram 10 MG Tab PO SCH (08:24)
[2020-11-30] MEDS: busPIRone 15 MG Tab PO SCH (08:24)
[2020-11-30] MEDS: risperiDONE 0.5 MG Tab PO SCH (08:24)
[2020-11-30] MEDS: Docusate Sodium 100 MG Cap PO SCH (08:25)
[2020-11-30] MEDS: Folic Acid 1 MG Tab PO SCH (08:25)
[2020-11-30] MEDS: lamoTRIgine 100 MG Tab PO SCH (08:25)
[2020-11-30] MEDS: Mineral Oil/Petrolatum,Hydrophilic Ointment 100 GM Jar TOP SCH (08:26)
[2020-11-30] MEDS: Cefdinir 300 MG Cap PO SCH (08:33)
[2020-11-30] MEDS: Tamsulosin 0.4 MG Cap.ER PO SCH (08:33)
[2020-11-30] MEDS: Furosemide 20 MG Tab PO SCH (08:33)
[2020-11-30] MEDS ORDERED: Polyethylene Glycol 3350 Powder 17 GM Packet PO SCH (09:00)
--- NOTE | 2020-11-30 09:33 | PCM.DCSUM1 ---
Discharge Summary - Hospital Course Free Text/Narrative:: Patient required enema x2 and addition of senna for bowel movements. Patient will continue senna in addition to his docusate and polyethylene glycol to help him with his chronic constipation. Patient continues to have urinary retention. It is likely that this is secondary to BPH. Consultation with urology with [facility] recommended continuing finasteride and tamsulosin. However, if the patient cannot tolerate tamsulosin secondary to hypotension we will need to stop the tamsulosin. If he tolerates tamsulosin for 2 weeks the Boyd catheter should be removed and he should be given an opportunity to see if he can void and maintain continence. However, if he does not tolerate the tamsulosin due to hypotension he will likely have chronic indwelling Boyd catheter that will need to be changed every month. Continue current treatment for other chronic conditions. Patient completed treatment for influenza type B and possible bacterial superinfection. Diagnosis: Stroke: No - Discharge Data Discharge Date: 11/30/20 Discharge Disposition: Home, Self-Care 01 Condition: Stable - Referral to Home Health Primary Care Physician: Audrey Riddle NP - Discharge Diagnosis/Problem(s) (1) Down syndrome SNOMED Code(s): 31267695 ICD Code: Q90.9 - DOWN SYNDROME, UNSPECIFIED Status: Chronic Current Visit: Yes (2) Encounter for palliative care SNOMED Code(s): 543428698, 627101969 ICD Code: Z51.5 - ENCOUNTER FOR PALLIATIVE CARE Status: Chronic Current Visit: Yes (3) Alzheimer's dementia without behavioral disturbance SNOMED Code(s): 84824168 ICD Code: G30.9 - ALZHEIMER'S DISEASE, UNSPECIFIED; F02.80 - DEMENTIA IN OTH DISEASES CLASSD ELSWHR W/O BEHAVRL DISTURB Status: Chronic Current Visit: Yes (4) Bilateral pleural effusion SNOMED Code(s): 526924672 ICD Code: J90 - PLEURAL EFFUSION, NOT ELSEWHERE CLASSIFIED Status: Acute Current Visit: Yes (5) CHF exacerbation SNOMED Code(s): 354273878, 87713692038831 ICD Code: I50.9 - HEART FAILURE, UNSPECIFIED Status: Acute Current Visit: Yes (6) Influenza B SNOMED Code(s): 77990697 ICD Code: J10.1 - FLU DUE TO OTH IDENT INFLUENZA VIRUS W OTH RESP MANIFEST Status: Acute Current Visit: Yes (7) Community acquired pneumonia SNOMED Code(s): 730321990 ICD Code: J18.9 - PNEUMONIA, UNSPECIFIED ORGANISM Status: Acute Current Visit: No Problem Details: Bilateral Qualifiers: Lung location: lower lobe of lung (8) Elevated brain natriuretic peptide (BNP) level SNOMED Code(s): 246771680, 848244608 ICD Code: R79.89 - OTHER SPECIFIED ABNORMAL FINDINGS OF BLOOD CHEMISTRY Status: Acute Current Visit: No (9) Macrocytic anemia SNOMED Code(s): 78638203 ICD Code: D53.9 - NUTRITIONAL ANEMIA, UNSPECIFIED Status: Chronic Current Visit: No (10) Urinary retention SNOMED Code(s): 762468090 ICD Code: R33.9 - RETENTION OF URINE, UNSPECIFIED Status: Chronic Current Visit: No (11) Overflow incontinence of urine SNOMED Code(s): 354233051 ICD Code: N39.490 - OVERFLOW INCONTINENCE Status: Chronic Current Visit: No (12) Chronic constipation SNOMED Code(s): 564622730 ICD Code: K59.09 - OTHER CONSTIPATION Status: Chronic Current Visit: Yes - Patient Instructions Diet: Usual Diet as Tolerated Driving: Do Not Drive Showering/Bathing: May Shower - Discharge Plan *PRESCRIPTION DRUG MONITORING PROGRAM REVIEWED*: Not Applicable *COPY OF PRESCRIPTION DRUG MONITORING REPORT IN PATIENT JOSE: Not Applicable Prescriptions/Med Rec: Tamsulosin [Flomax] 0.4 mg PO DAILY #30 cap.er Furosemide [Lasix] 20 mg PO DAILY #30 tablet Sennosides [Senna] 8.6 mg PO BEDTIME PRN #30 tablet PRN Reason: Constipation Home Medications: Home Meds Calcium Carbonate/Vitamin D3 [Calcium 600Mg-D3 400 Unit Sfgl] 1 cap PO BID 11/22/20 [History] Citalopram [Citalopram HBr] 30 mg PO DAILY 11/22/20 [History] Docusate Sodium [Colace] 200 mg PO DAILY 11/22/20 [History] Folic Acid 1 mg PO DAILY 11/22/20 [History] Levothyroxine Sodium [Levothyroxine] 137 mcg PO 0600 11/22/20 [History] Magnesium Chloride [Magnesium] 64 mg PO DAILY 11/22/20 [History] Melatonin 3 mg PO BEDTIME 11/22/20 [History] Mineral Oil/Pet Hy-Phl Oint [Aquaphor Healing Ointment] 1 applic TOP BID 11/22/20 [History] busPIRone [Buspar] 30 mg PO BID 11/22/20 [History] calcium polycarbophiL [Fiber Tabs] 1 tab PO BID 11/22/20 [History] polyethylene glycoL 3350 [MiraLAX] 17 gm PO MOTH 11/22/20 [History] risperiDONE 0.5 mg PO BID 11/22/20 [History] traZODone 100 mg PO BEDTIME 11/22/20 [History] Cyanocobalamin (Vitamin B-12) [Vitamin B-12] 1,000 mcg PO DAILY 11/23/20 [History] Ibuprofen 600 mg PO Q8H PRN 11/23/20 [History] Ketoconazole [Nizoral 2% Shampoo] 1 applic TOP MOWEFR 11/23/20 [History] Mineral Oil/Pet Hy-Phl Oint [Aquaphor Healing Ointment] 1 applic TOP BID 11/23/20 [History] lamoTRIgine [Lamotrigine] 100 mg PO BID 11/23/20 [History] Cefdinir 300 mg PO BID #12 capsule 11/26/20 [Rx] Finasteride 5 mg PO BEDTIME #30 tablet 11/26/20 [Rx] Furosemide [Lasix] 20 mg PO DAILY #30 tablet 11/30/20 [Rx] Sennosides [Senna] 8.6 mg PO BEDTIME PRN #30 tablet 11/30/20 [Rx] Tamsulosin [Flomax] 0.4 mg PO DAILY #30 cap.er 11/30/20 [Rx] Forms: ED Department Discharge Referrals: Audrey Riddle NP [Primary Care Provider] - - Discharge Summary/Plan Comment DC Time >30 min.: No Total # of Minutes for Discharge Time: 25 Discharge Summary/Plan Comment: Continue tamsulosin for 2 weeks if the patient tolerates tamsulosin without hypotension. After 2 weeks remove the Boyd catheter and give the patient an opportunity to void and maintain continence. If the patient cannot void or if he does not tolerate tamsulosin he will have to have a chronic indwelling Boyd catheter changed monthly. Low up with primary care physician. To new current treatment. - Patient Data Vitals - Most Recent: Last Vital Signs Temp 36.4 C 11/30/20 08:00 Pulse 62 11/30/20 08:00 Resp 20 11/30/20 08:00 BP 104/56 L 11/30/20 08:00 Pulse Ox 97 11/30/20 08:00 Weight - Most Recent: 82.191 kg I&O - Last 24 hours: Intake & Output 11/29/20 11/30/20 11/30/20 22:59 06:59 14:59 Intake Total 530 Output Total 600 650 Balance -70 -650 Med Orders - Current: Current Medications Acetaminophen (Acetaminophen 325 Mg Tab) 650 mg PO Q6H PRN PRN Reason: Pain Last Admin: 11/30/20 04:00 Dose: 650 mg Documented by: Buspirone HCl (Buspirone 15 Mg Tab) 30 mg PO BID [facility] Last Admin: 11/30/20 08:24 Dose: 30 mg Documented by: Cefdinir (Cefdinir 300 Mg Cap) 300 mg PO BID [facility] Stop: 12/02/20 10:00 Last Admin: 11/30/20 08:33 Dose: 300 mg Documented by: Citalopram Hydrobromide (Citalopram 10 Mg Tab) 30 mg PO DAILY [facility] Last Admin: 11/30/20 08:24 Dose: 30 mg Documented by: Cyanocobalamin (Cyanocobalamin (Vitamin B12) 1,000 Mcg Tab) 1,000 mcg PO DAILY [facility] Last Admin: 11/30/20 08:23 Dose: 1,000 mcg Documented by: Docusate Sodium (Docusate Sodium 100 Mg Cap) 200 mg PO DAILY [facility] Last Admin: 11/30/20 08:25 Dose: 200 mg Documented by: Folic Acid (Folic Acid 1 Mg Tab) 1 mg PO DAILY [facility] Last Admin: 11/30/20 08:25 Dose: 1 mg Documented by: Furosemide (Furosemide 20 Mg Tab) 20 mg PO DAILY [facility] Last Admin: 11/30/20 08:33 Dose: 20 mg Documented by: Lamotrigine (Lamotrigine 100 Mg Tab) 100 mg PO BID [facility] Last Admin: 11/30/20 08:25 Dose: 100 mg Documented by: Levothyroxine Sodium (Levothyroxine 137 Mcg Tab) 137 mcg PO DAILY@0600 [facility] Last Admin: 11/30/20 05:20 Dose: 137 mcg Documented by: Magnesium Chloride (Magnesium Chloride 64 Mg Tab.Er) 64 mg PO DAILY [facility] Last Admin: 11/30/20 08:23 Dose: 64 mg Documented by: Melatonin (Melatonin 3 Mg Tab) 3 mg PO BEDTIME [facility] Last Admin: 11/29/20 20:10 Dose: 3 mg Documented by: Mineral Oil/White Petrolatum (Mineral Oil/Petrolatum,Hydrophilic Ointment 100 Gm Jar) 0 gm TOP BID [facility] Last Admin: 11/30/20 08:26 Dose: 1 applic Documented by: Polyethylene Glycol (Polyethylene Glycol 3350 Powder 17 Gm Packet) 17 gm PO MOTH [facility] Last Admin: 11/30/20 08:22 Dose: 17 gm Documented by: Risperidone (Risperidone 0.5 Mg Tab) 0.5 mg PO BID [facility] Last Admin: 11/30/20 08:24 Dose: 0.5 mg Documented by: Senna (Sennosides 8.6 Mg Tab) 8.6 mg PO BEDTIME PRN PRN Reason: Constipation Tamsulosin HCl (Tamsulosin 0.4 Mg Cap.Er) 0.4 mg PO DAILY [facility] Last Admin: 11/30/20 08:33 Dose: 0.4 mg Documented by: Trazodone HCl (Trazodone 100 Mg Tab) 100 mg PO BEDTIME [facility] Last Admin: 11/29/20 20:10 Dose: 100 mg Documented by: Discontinued Medications Enoxaparin Sodium (Enoxaparin 40 Mg/0.4 Ml Syringe) 40 mg SUBCUT ONETIME ONE Stop: 11/27/20 18:55 Last Admin: 11/27/20 20:49 Dose: 40 mg Documented by: Magnesium Oxide (Magnesium Oxide 400 Mg Tab) 400 mg PO ONETIME ONE Stop: 11/27/20 11:50 Last Admin: 11/27/20 14:21 Dose: 400 mg Documented by: Magnesium Oxide (Magnesium Oxide 400 Mg Tab) Confirm Administered Dose 400 mg .ROUTE .STK-MED ONE Stop: 11/27/20 14:21 Last Admin: 11/27/20 15:09 Dose: Not Given Documented by: Oseltamivir Phosphate (Oseltamivir 75 Mg Cap) 75 mg PO BID [facility] Stop: 11/28/20 21:01 Last Admin: 11/28/20 20:49 Dose: 75 mg Documented by: Shai (Sennosides 8.6 Mg Tab) 8.6 mg PO DAILY [facility] Stop: 11/28/20 10:00 Last Admin: 11/28/20 10:41 Dose: 8.6 mg Documented by: Sodium Biphosphate/Sodium Phosphate (Sodium Phosphate,Monobasic/Sodium Phosphate,Dibasic Enema 133 Ml Bottle) 133 ml RECTAL ONETIME ONE Stop: 11/27/20 18:37 Last Admin: 11/27/20 22:00 Dose: 133 ml Documented by: Sodium Biphosphate/Sodium Phosphate (Sodium Phosphate,Monobasic/Sodium Phosphate,Dibasic Enema 133 Ml Bottle) 133 ml RECTAL ONETIME ONE Stop: 11/28/20 18:30 Last Admin: 11/28/20 22:06 Dose: Not Given Documented by:
--- NOTE | 2020-12-02 19:39 | PCM.EKG ---
#1 Interpretation EKG Date: 11/27/20 Rhythm: NSR [place]: Normal ST-T: Normal QT: Prolonged Comparison: No Change
== END 2020-11-30 11:20 | disposition home or self-care (01) | DRG 291 ==
LOC: FB.ED 10:43 → FB.MS 14:16
PROVIDERS: ADMIT Student in an Organized Health Care Education/Training Program; ATTEND Student in an Organized Health Care Education/Training Program
DX: I50.9 Heart failure, unspecified (principal); R06.02 Shortness of breath; J10.1 Influenza due to other identified influenza virus with other respiratory manifestations; J10.00 Influenza due to other identified influenza virus with unspecified type of pneumonia; J90 Pleural effusion, not elsewhere classified; Q90.9 Down syndrome, unspecified; R33.9 Retention of urine, unspecified; Z51.5 Encounter for palliative care; G30.9 Alzheimer's disease, unspecified; F02.80 Dementia in other diseases classified elsewhere, unspecified severity, without behavioral disturbance, psychotic disturbance, mood disturbance, and anxiety; Z20.822 Contact with and (suspected) exposure to COVID-19; D53.9 Nutritional anemia, unspecified; R33.8 Other retention of urine; N40.1 Benign prostatic hyperplasia with lower urinary tract symptoms; N39.490 Overflow incontinence; K59.09 Other constipation; F42.9 Obsessive-compulsive disorder, unspecified; E03.9 Hypothyroidism, unspecified; H54.7 Unspecified visual loss; E53.8 Deficiency of other specified B group vitamins; E83.42 Hypomagnesemia; Z79.890 Hormone replacement therapy; Z79.899 Other long term (current) drug therapy
CPT/HCPCS: 36415; 71045; 80053; 81001; 83880; 84484; 85025; 85610; 86140; 93005; U0002; 51702; 99285-25; A9270-GY; J1650

== ENCOUNTER 2020-12-19 17:15 | Emergency (ER) | payer MEDICARE, MEDICAID ==
--- NOTE | 2020-12-19 17:59 | EDM.PDOC ---
ED HPI GENERAL MEDICAL PROBLEM - General Chief Complaint: General Stated Complaint: CATHETER ISSUES Time Seen by Provider: 12/19/20 17:55 Source of Information: Reports: Other (Attendant from his home.) History Limitations: Reports: Other (Patient is nonverbal.) - History of Present Illness INITIAL COMMENTS - FREE TEXT/NARRATIVE: 60-year-old male who is a long-term resident of a local half-way with Down syndrome and dementia. He also was recently in the hospital for heart failure, pneumonia and he had urinary retention and required Boyd catheter placement. He developed some redness on the tip of his penis and had some discharge from around the catheter was seen in walk-in clinic yesterday where they felt that he had an infection of the catheter site and also a urinary tract infection and he was placed on ciprofloxacin 500 mg twice a day. He is brought back to the emergency room today because basically he has been in bed all day long and he has not been up and about and eating like he would normally do and in fact tonight he would not eat or drink and according to the half-way staff he really has not had anything to eat or drink today. The Boyd catheter seems to be draining more purulent type material and bloody type material from around the site and there is an odor to it. They have been applying antifungal cream to the area and according to them he has been pulling at the catheter and it seems to be irritating him. He has continued to have drainage of urine from the Boyd catheter. There've been no measured fevers. There is been no vomiting. All the history that I obtain comes from the half-way staff members. The patient is nonverbal and cannot provide me with any of this information. There are no other associated signs or symptoms. There are no other modifying factors. Onset: Other (2 days) Duration: Getting Worse Location: Reports: Other (Unknown) Quality: Reports: Other Improves with: Reports: None (Unknown) Worsens with: Reports: None Context: Reports: Other (As above) Associated Symptoms: Reports: No Other Symptoms (Except as above) Treatments PATHOLOGY TEACHER: Reports: Other (see below) - Related Data Allergies Allergy/AdvReac Type Severity Reaction Status Date / Time No Known Allergies Allergy Verified 12/19/20 17:38 Home Meds: Home Meds Calcium Carbonate/Vitamin D3 [Calcium 600Mg-D3 400 Unit Sfgl] 1 cap PO BID 11/22/20 [History] Citalopram [Citalopram HBr] 30 mg PO DAILY 11/22/20 [History] Docusate Sodium [Colace] 200 mg PO DAILY 11/22/20 [History] Folic Acid 1 mg PO DAILY 11/22/20 [History] Levothyroxine Sodium [Levothyroxine] 137 mcg PO 0600 11/22/20 [History] Magnesium Chloride [Magnesium] 64 mg PO DAILY 11/22/20 [History] Melatonin 3 mg PO BEDTIME 11/22/20 [History] Mineral Oil/Pet Hy-Phl Oint [Aquaphor Healing Ointment] 1 applic TOP BID 11/22/20 [History] busPIRone [Buspar] 30 mg PO BID 11/22/20 [History] calcium polycarbophiL [Fiber Tabs] 1 tab PO BID 11/22/20 [History] polyethylene glycoL 3350 [MiraLAX] 17 gm PO MOTH 11/22/20 [History] risperiDONE 0.5 mg PO BID 11/22/20 [History] traZODone 100 mg PO BEDTIME 11/22/20 [History] Cyanocobalamin (Vitamin B-12) [Vitamin B-12] 1,000 mcg PO DAILY 11/23/20 [History] Ibuprofen 600 mg PO Q8H PRN 11/23/20 [History] Ketoconazole [Nizoral 2% Shampoo] 1 applic TOP MOWEFR 11/23/20 [History] Mineral Oil/Pet Hy-Phl Oint [Aquaphor Healing Ointment] 1 applic TOP BID 11/23/20 [History] lamoTRIgine [Lamotrigine] 100 mg PO BID 11/23/20 [History] Cefdinir 300 mg PO BID #12 capsule 11/26/20 [Rx] Finasteride 5 mg PO BEDTIME #30 tablet 11/26/20 [Rx] Furosemide [Lasix] 20 mg PO DAILY #30 tablet 11/30/20 [Rx] Sennosides [Senna] 8.6 mg PO BEDTIME PRN #30 tablet 11/30/20 [Rx] Tamsulosin [Flomax] 0.4 mg PO DAILY #30 cap.er 11/30/20 [Rx] Past Medical History HEENT History: Reports: Impaired Vision, Other (See Below) Other HEENT History: Blepharitis Gastrointestinal History: Reports: Chronic Constipation Genitourinary History: Reports: BPH, Other (See Below) Other Genitourinary History: Benign prostatic hyperplasia Neurological History: Reports: Alzheimers Disease, Other (See Below) Other Neuro History: Down's Syndrome Psychiatric History: Reports: Alzheimers Disease, Dementia, OCD Endocrine/Metabolic History: Reports: Hypomagnesemia, Hypothyroidism, Vitamin D Deficiency Hematologic History: Reports: B12 Deficiency, Other (See Below) Other Hematologic History: Neutropenia, hypocalcemia Dermatologic History: Reports: Seborrheic Dermatitis, Other (See Below) Other Dermatologic History: Perioral dermatitis - Past Surgical History Male Surgical History: Reports: Other (See Below) Other Male Surgeries/Procedures: Proctoscopy Social & Family History - Tobacco Use Tobacco Use Status *Q: Never Tobacco User Second Hand Smoke Exposure: No - Caffeine Use Caffeine Use: Reports: Soda - Alcohol Use Alcohol Use History: No - Recreational Drug Use Recreational Drug Use: No - Living Situation & Occupation Living situation: Reports: Other (Long-term resident at a half-way.) Occupation: Disabled ED ROS GENERAL - Review of Systems Review Of Systems: Unable To Obtain Reason Not Obtained: The patient has dementia and Down's synd and is nonverbal. ED EXAM, GENERAL - Physical Exam Exam: See Below Exam Limited By: No Limitations General Appearance: Lethargic (But awakens with stimulation and engages people with his eyes and makes grunting noises.), Mild Distress Eye Exam: Bilateral Eye: Other (Collura aren't icteric) Ears: Normal External Exam Ear Exam: Bilateral Ear: Auricle Normal Nose: Normal Inspection, Normal Mucosa, No Blood Throat/Mouth: No Airway Compromise, Other (Dry mucous membranes) Head: Atraumatic, Normocephalic Neck: Normal Inspection Respiratory/Chest: No Respiratory Distress, Lungs Clear, Normal Breath Sounds, No Accessory Muscle Use Cardiovascular: Normal Peripheral Pulses, Regular Rate, Rhythm, No Murmur Peripheral Pulses: 2+: Radial (L), Radial (R) GI/Abdominal: Normal Bowel Sounds, Soft, Non-Tender. No: Rigid, Rebound Back Exam: Normal Inspection Extremities: Normal Inspection, No Pedal Edema, Normal Capillary Refill Neurological: Disoriented, Slow to Respond, Other (Awake but quite sleepy and not really interactive. No focal deficits noted.) Skin Exam: Warm, Dry, Intact, Normal Color, No Rash Course - Vital Signs Last Recorded V/S: Last Vital Signs Temp 36.7 C 12/19/20 17:30 Pulse 77 12/19/20 17:30 Resp 16 12/19/20 17:30 BP 105/51 L 12/19/20 17:30 Pulse Ox 97 12/19/20 17:30 - Orders/Labs/Meds Orders: Active Orders 24 hr Category Date Time Status Bladder Scan [RC] ONETIME Care 12/19/20 18:13 Active CXR [Chest 1V Frontal] [CR] Stat Exams 12/19/20 18:46 Ordered CBC WITH AUTO DIFF [HEME] Stat Lab 12/19/20 18:30 Received COMPREHENSIVE METABOLIC PN,CMP [CHEM] Stat Lab 12/19/20 18:30 Results MAGNESIUM [CHEM] Stat Lab 12/19/20 18:30 Results UA W/MICROSCOPIC [URIN] Stat Lab 12/19/20 18:51 Received Sodium Chloride 0.9% [Normal Saline] 1,000 ml Med 12/19/20 19:00 Active IV ASDIRECTED Sodium Chloride 0.9% [Saline Flush] Med 12/19/20 18:50 Active 10 ml FLUSH ASDIRECTED PRN Peripheral IV Insertion Adult [OM.PC] Routine Oth 12/19/20 18:50 Ordered Medication Orders Sodium Chloride (Normal Saline) 1,000 mls @ 999 mls/hr IV ASDIRECTED REBEKAH Sodium Chloride (Sodium Chloride 0.9% 10 Ml Syringe) 10 ml FLUSH ASDIRECTED PRN PRN Reason: Keep Vein Open Labs: Laboratory Tests 12/19/20 12/19/20 Range/Units 18:30 18:30 Sodium 133 L (135-145) mmol/L Potassium 4.4 (3.5-5.3) mmol/L Chloride 98 L (100-110) mmol/L Carbon Dioxide 29 (21-32) mmol/L BUN 9 (7-18) mg/dL Creatinine 0.9 (0.70-1.30) mg/dL Est Cr Clr Drug Dosing 71.26 mL/min Estimated GFR (MDRD) > 60 (>60) BUN/Creatinine Ratio 10.0 (9-20) Glucose 92 (80-116) mg/dL Calcium 8.7 (8.6-10.2) mg/dL C-Reactive Protein 10.8 H* (0.5-0.9) mg/dL Meds: Medications Generic Name Dose Route Start Last Admin Trade Name Freq PRN Reason Stop Dose Admin Sodium Chloride 1,000 mls @ 999 mls/hr 12/19/20 19:00 Normal Saline IV ASDIRECTED REBEKAH Sodium Chloride 10 ml 12/19/20 18:50 Sodium Chloride 0.9% 10 Ml Syringe FLUSH ASDIRECTED PRN Keep Vein Open - Re-Assessments/Exams Free Text/Narrative Re-Assessment/Exam: 12/19/20 19:10: Care of the patient to Dr. Figueroa. Please see his note in regard to the patient's further ED course and disposition. I have ordered basic lab tests. Departure - Departure Time of Disposition: 19:10 Disposition: Still A Patient 30 Condition: Fair Clinical Impression: Dehydration Catheter-associated urinary tract infection Qualifiers: Indwelling urinary catheter type: indwelling urethral catheter Encounter type: initial encounter Qualified Code(s): T83.511A - Infection and inflammatory reaction due to indwelling urethral catheter, initial encounter; N39.0 - Urinary tract infection, site not specified - Discharge Information Forms: ED Department Discharge Sepsis Event Note (ED) - Evaluation Sepsis Screening Result: No Definite Risk - Focused Exam Vital Signs: Vital Signs Temp Pulse Resp BP Pulse Ox 12/19/20 17:30 36.7 C 77 16 105/51 L 97 - My Orders Last 24 Hours: My Active Orders 12/19/20 18:13 Bladder Scan [RC] ONETIME 12/19/20 18:30 CBC WITH AUTO DIFF [HEME] Stat COMPREHENSIVE METABOLIC PN,CMP [CHEM] Stat MAGNESIUM [CHEM] Stat - Assessment/Plan Last 24 Hours: My Active Orders 12/19/20 18:13 Bladder Scan [RC] ONETIME 12/19/20 18:30 CBC WITH AUTO DIFF [HEME] Stat COMPREHENSIVE METABOLIC PN,CMP [CHEM] Stat MAGNESIUM [CHEM] Stat
[2020-12-19] MEDS ORDERED: Sodium Chloride 0.9% 10 ML Syringe FLUSH PRN (18:50)
[2020-12-19] MEDS ORDERED: Sodium Chloride 0.9% 1,000 ML IV SCH (19:00)
--- NOTE | 2020-12-19 19:42 | PCM.SN.2 ---
- Free Text/Narrative Note: I was called to ER for an IV start on this patient. Lab took 4 attempts to draw blood. I attempted to start an IV in left hand without success. I started an IV in her right hand with a 18 jelco, secured, IV fluid runs well. Sterile technique used throughout procedure. Gave report to Kaley SINGLETON. Time Documentation
[2020-12-19] MEDS ORDERED: cefTRIAXone 2 GM Vial IVPUSH ONE (19:47)
--- NOTE | 2020-12-19 22:06 | ER ---
DATE SEEN: 12/19/2020 REASON FOR VISIT: UTI. HISTORY OF PRESENT ILLNESS: This is a 60[facility], was admitted not long ago for pneumonia, but in the last 2 days, he has been more lethargic and they have noted malodorous urine in the bag. He was seen in the walk-in clinic and diagnosed with a UTI, was given some ciprofloxacin. Today, he was lethargic and not able to eat or drink during the day. He saw Dr. Rodriguez. PHYSICAL EXAMINATION: GENERAL: He is not in distress. VITAL SIGNS: He has normal blood pressure, pulse, and temperature. CHEST: Clear. ABDOMEN: Soft. NEUROLOGIC: He is in his baseline. LABORATORY DATA: His labs confirmed a UTI with more than 100 white blood cells and many bacteria. CRP was 10.8, but he had a normal white cell count. Sodium was 133. IMPRESSION: 1. Urinary tract infection. 2. Dehydration. PLAN: I gave him 1 L of normal saline. I will give him 2 g of Rocephin and discharge him home to continue ciprofloxacin and follow up with PCP in 2 days. /[id number] PAOLA/KLEBER
--- NOTE | 2020-12-21 12:33 | CR ---
CHEST ONE VIEW INDICATION: Lethargy, UTI, infection at catheter. FINDINGS: An AP upright portable view of the chest was obtained 12/19/20 and compared with 11/27/20 and 11/26/20. The severe infiltration on the right with patchy infiltration on the left has significantly improved compared with the previous examination. Pulmonary vasculature appears somewhat congested and prominent in the upper lung melchor, raising the question of pulmonary vascular congestion. Interstitial changes are prominent which suggests interstitial lung edema but slightly less severe than on the previous examination. No definite pleural effusion is seen at this time. No consolidating pneumonia was identified. The heart appears to be prominent but is emphasized by the AP positioning, possibility of mild cardiomegaly cannot be excluded. IMPRESSION: Marked improvement in appearance of the chest compared with previous examinations. However, there remains interstitial change and prominence of upper lung field pulmonary vasculature which may be on the basis of CHF and interstitial lung edema and should be correlated clinically. No gross evidence of pneumonia is seen at this time, although some patchy bronchopneumonia at the lung bases especially cannot be excluded to the heavy markings. MTDD
== END 2020-12-19 21:04 ==
LOC: FB.ED 17:15
DX: T83.511A Infection and inflammatory reaction due to indwelling urethral catheter, initial encounter (principal); N39.0 Urinary tract infection, site not specified; E86.0 Dehydration; N40.0 Benign prostatic hyperplasia without lower urinary tract symptoms; G30.9 Alzheimer's disease, unspecified; F02.80 Dementia in other diseases classified elsewhere, unspecified severity, without behavioral disturbance, psychotic disturbance, mood disturbance, and anxiety; E03.9 Hypothyroidism, unspecified; Z79.899 Other long term (current) drug therapy
CPT/HCPCS: 36410; 36415; 71045; 80053; 81001; 83735; 85025; 86140; 96374; 99284-25; J0696; J7030

== ENCOUNTER 2021-03-10 11:20 | Inpatient (IN) | payer MEDICARE, MEDICAID ==
[2021-03-10] MEDS ORDERED: traZODone 50 MG Tab PO PRN (12:49)
[2021-03-10] MEDS ORDERED: COD LIVER OIL TOP PRN (12:49)
[2021-03-10] MEDS ORDERED: ZINC OXIDE TOP PRN (12:49)
[2021-03-10] MEDS ORDERED: Nystatin Crm 15 GM Tube TOP PRN (12:49)
[2021-03-10] MEDS ORDERED: diphenhydrAMINE 25 MG Cap PO PRN (12:49)
[2021-03-10] MEDS ORDERED: Sennosides 8.6 MG Tab PO PRN (12:49)
[2021-03-10] MEDS ORDERED: [UNRECOGNIZED DRUG - OTHER] TOP PRN (12:49)
[2021-03-10] MEDS ORDERED: Non-Formulary Medication 1 Each (Ketoconazole [Nizoral 2% Shampoo] 120 ML Bottle) TOP SCH (13:00)
[2021-03-10] MEDS ORDERED: cefTRIAXone 1 GM Vial IVPUSH SCH ×2 (13:30→14:00)
[2021-03-10] MEDS: Sodium Chloride 0.9% 10 ML Syringe FLUSH PRN ×2 (14:05→16:20)
[2021-03-10] MEDS: VANCOmycin 1 GM/200 ML 1 GM in Premix Bag 1 BAG IV SCH (14:25)
[2021-03-10] MEDS: Midodrine 5 MG Tab PO SCH ×2 (14:30→22:06)
[2021-03-10] MEDS: Calcium Carbonate 500 MG Tablet PO SCH (21:59)
[2021-03-10] MEDS: risperiDONE 0.5 MG Tab PO SCH (21:59)
[2021-03-10] MEDS: LORazepam 1 MG Tab PO SCH (21:59)
[2021-03-10] MEDS: Melatonin 3 MG Tab PO SCH (21:59)
[2021-03-10] MEDS: traZODone 100 MG Tab PO SCH (22:06)
[2021-03-10] MEDS: lamoTRIgine 100 MG Tab PO SCH (22:07)
[2021-03-10] MEDS: busPIRone 15 MG Tab PO SCH (22:07)
[2021-03-10] MEDS: Calcium Polycarbophil 625 MG Tab PO SCH (23:21)
[2021-03-10] MEDS: Mineral Oil/Petrolatum,Hydrophilic Ointment 100 GM Jar TOP SCH (23:24)
[2021-03-11] MEDS: VANCOmycin 1 GM/200 ML 1 GM in Premix Bag 1 BAG IV SCH ×2 (02:12→14:39)
[2021-03-11] MEDS: Sodium Chloride 0.9% 10 ML Syringe FLUSH PRN ×2 (02:15→21:53)
[2021-03-11] MEDS ORDERED: Acetaminophen 325 MG Tab PO PRN (07:04)
[2021-03-11] MEDS ORDERED: Acetaminophen 650 MG Supp RECTAL PRN (08:49)
[2021-03-11] MEDS ORDERED: Sodium Chloride 0.9% 1,000 ML IV SCH (09:00)
[2021-03-11] MEDS: Ertapenem 1 GM in Sodium Chloride 0.9% 50 ML IV SCH (09:55)
[2021-03-11] MEDS: Mineral Oil/Petrolatum,Hydrophilic Ointment 100 GM Jar TOP SCH ×2 (10:09→21:44)
[2021-03-11] MEDS: Clindamycin in 0.9 % Sod Chlor 600 MG/50 ML BAG IV SCH ×2 (13:27→17:58)
[2021-03-11] MEDS: LORazepam 1 MG Tab PO SCH ×2 (15:12→21:53)
[2021-03-11] MEDS: busPIRone 15 MG Tab PO SCH ×2 (15:13→21:45)
[2021-03-11] MEDS: Calcium Polycarbophil 625 MG Tab PO SCH ×2 (15:13→21:44)
[2021-03-11] MEDS: Folic Acid 1 MG Tab PO SCH (15:13)
[2021-03-11] MEDS: Docusate Sodium 100 MG Cap PO SCH (15:13)
[2021-03-11] MEDS: Citalopram 10 MG Tab PO SCH (15:13)
[2021-03-11] MEDS: Midodrine 5 MG Tab PO SCH ×3 (15:13→21:47)
[2021-03-11] MEDS: lamoTRIgine 100 MG Tab PO SCH ×2 (15:13→21:45)
[2021-03-11] MEDS: Magnesium Chloride 64 MG Tab.ER PO SCH (15:13)
[2021-03-11] MEDS: Polyethylene Glycol 3350 Powder 17 GM Packet PO SCH (15:16)
[2021-03-11] MEDS: risperiDONE 0.5 MG Tab PO SCH ×2 (15:17→21:49)
[2021-03-11] MEDS: Cyanocobalamin (Vitamin B12) 1,000 MCG Tab PO SCH (15:17)
[2021-03-11] MEDS: Calcium Carbonate 500 MG Tablet PO SCH ×2 (15:17→21:47)
[2021-03-11] MEDS: Dextrose 5%-0.9% NaCl 1,000 ML IV SCH (21:40)
[2021-03-11] MEDS: Melatonin 3 MG Tab PO SCH (21:46)
[2021-03-11] MEDS: traZODone 100 MG Tab PO SCH (21:49)
[2021-03-12] MEDS: Clindamycin in 0.9 % Sod Chlor 600 MG/50 ML BAG IV SCH ×3 (01:41→17:16)
[2021-03-12] MEDS: VANCOmycin 1 GM/200 ML 1 GM in Premix Bag 1 BAG IV SCH ×2 (02:13→14:18)
[2021-03-12] MEDS: Dextrose 5%-0.9% NaCl 1,000 ML IV SCH ×3 (05:35→22:58)
[2021-03-12] MEDS: LORazepam 1 MG Tab PO SCH ×2 (08:42→21:41)
[2021-03-12] MEDS: Midodrine 5 MG Tab PO SCH ×3 (08:42→21:37)
[2021-03-12] MEDS: busPIRone 15 MG Tab PO SCH ×2 (08:42→21:35)
[2021-03-12] MEDS: Magnesium Chloride 64 MG Tab.ER PO SCH (08:43)
[2021-03-12] MEDS: Citalopram 10 MG Tab PO SCH (08:43)
[2021-03-12] MEDS: lamoTRIgine 100 MG Tab PO SCH ×2 (08:43→21:37)
[2021-03-12] MEDS: risperiDONE 0.5 MG Tab PO SCH ×2 (08:45→21:38)
[2021-03-12] MEDS: Calcium Polycarbophil 625 MG Tab PO SCH ×2 (08:45→21:36)
[2021-03-12] MEDS: Folic Acid 1 MG Tab PO SCH (08:45)
[2021-03-12] MEDS: Cyanocobalamin (Vitamin B12) 1,000 MCG Tab PO SCH (08:45)
[2021-03-12] MEDS: Calcium Carbonate 500 MG Tablet PO SCH ×2 (08:45→21:38)
[2021-03-12] MEDS: Docusate Sodium 100 MG Cap PO SCH (08:45)
[2021-03-12] MEDS: Mineral Oil/Petrolatum,Hydrophilic Ointment 100 GM Jar TOP SCH ×2 (09:19→21:36)
[2021-03-12] MEDS: Ertapenem 1 GM in Sodium Chloride 0.9% 50 ML IV SCH (09:20)
[2021-03-12] MEDS: Melatonin 3 MG Tab PO SCH (21:37)
[2021-03-12] MEDS: traZODone 100 MG Tab PO SCH (21:38)
[2021-03-12] MEDS: Bacitracin/Neomycin/Polymyxin B Oint 28.4 GM Tube TOP SCH (21:41)
[2021-03-13] MEDS: Clindamycin in 0.9 % Sod Chlor 600 MG/50 ML BAG IV SCH ×3 (01:47→17:10)
[2021-03-13] MEDS: VANCOmycin 1 GM/200 ML 1 GM in Premix Bag 1 BAG IV SCH ×2 (01:57→13:40)
[2021-03-13] MEDS: busPIRone 15 MG Tab PO SCH ×2 (08:26→21:18)
[2021-03-13] MEDS: Citalopram 10 MG Tab PO SCH (08:30)
[2021-03-13] MEDS: Docusate Sodium 100 MG Cap PO SCH (08:30)
[2021-03-13] MEDS: Calcium Polycarbophil 625 MG Tab PO SCH ×2 (08:31→21:18)
[2021-03-13] MEDS: Mineral Oil/Petrolatum,Hydrophilic Ointment 100 GM Jar TOP SCH ×2 (08:31→21:18)
[2021-03-13] MEDS: Folic Acid 1 MG Tab PO SCH (08:31)
[2021-03-13] MEDS: Midodrine 5 MG Tab PO SCH ×3 (08:32→21:19)
[2021-03-13] MEDS: lamoTRIgine 100 MG Tab PO SCH ×2 (08:32→21:53)
[2021-03-13] MEDS: Magnesium Chloride 64 MG Tab.ER PO SCH (08:32)
[2021-03-13] MEDS: risperiDONE 0.5 MG Tab PO SCH ×2 (08:33→21:53)
[2021-03-13] MEDS: Calcium Carbonate 500 MG Tablet PO SCH ×2 (08:33→21:19)
[2021-03-13] MEDS: Cyanocobalamin (Vitamin B12) 1,000 MCG Tab PO SCH (08:34)
[2021-03-13] MEDS: Bacitracin/Neomycin/Polymyxin B Oint 28.4 GM Tube TOP SCH ×2 (08:34→21:53)
[2021-03-13] MEDS: LORazepam 1 MG Tab PO SCH ×2 (08:40→21:54)
[2021-03-13] MEDS: Ertapenem 1 GM in Sodium Chloride 0.9% 50 ML IV SCH (08:41)
[2021-03-13] MEDS: Sodium Chloride 0.9% 250 ML IV SCH (09:00)
[2021-03-13] MEDS: traZODone 100 MG Tab PO SCH (21:19)
[2021-03-13] MEDS: Melatonin 3 MG Tab PO SCH (21:19)
[2021-03-14] MEDS: Clindamycin in 0.9 % Sod Chlor 600 MG/50 ML BAG IV SCH ×3 (01:30→16:45)
[2021-03-14] MEDS: VANCOmycin 1 GM/200 ML 1 GM in Premix Bag 1 BAG IV SCH ×2 (02:04→14:31)
[2021-03-14] MEDS: Bacitracin/Neomycin/Polymyxin B Oint 28.4 GM Tube TOP SCH ×2 (08:09→20:46)
[2021-03-14] MEDS: busPIRone 15 MG Tab PO SCH ×2 (08:09→20:44)
[2021-03-14] MEDS: Cyanocobalamin (Vitamin B12) 1,000 MCG Tab PO SCH (08:11)
[2021-03-14] MEDS: Magnesium Chloride 64 MG Tab.ER PO SCH (08:11)
[2021-03-14] MEDS: Calcium Carbonate 500 MG Tablet PO SCH ×2 (08:11→20:46)
[2021-03-14] MEDS: Calcium Polycarbophil 625 MG Tab PO SCH ×2 (08:11→20:44)
[2021-03-14] MEDS: Docusate Sodium 100 MG Cap PO SCH (08:11)
[2021-03-14] MEDS: Folic Acid 1 MG Tab PO SCH (08:11)
[2021-03-14] MEDS: Citalopram 10 MG Tab PO SCH (08:12)
[2021-03-14] MEDS: Mineral Oil/Petrolatum,Hydrophilic Ointment 100 GM Jar TOP SCH ×2 (08:12→20:44)
[2021-03-14] MEDS: lamoTRIgine 100 MG Tab PO SCH ×2 (08:13→20:45)
[2021-03-14] MEDS: risperiDONE 0.5 MG Tab PO SCH ×2 (08:14→20:46)
[2021-03-14] MEDS: Midodrine 5 MG Tab PO SCH ×3 (08:14→20:45)
[2021-03-14] MEDS: LORazepam 1 MG Tab PO SCH ×2 (08:36→20:43)
[2021-03-14] MEDS: Ertapenem 1 GM in Sodium Chloride 0.9% 50 ML IV SCH (08:42)
[2021-03-14] MEDS: Melatonin 3 MG Tab PO SCH (20:45)
[2021-03-14] MEDS: traZODone 100 MG Tab PO SCH (20:47)
[2021-03-15] MEDS: Sodium Chloride 0.9% 250 ML IV SCH (01:46)
[2021-03-15] MEDS: Clindamycin in 0.9 % Sod Chlor 600 MG/50 ML BAG IV SCH ×3 (01:46→17:21)
[2021-03-15] MEDS: Sodium Chloride 0.9% 10 ML Syringe FLUSH PRN ×5 (01:47→20:26)
[2021-03-15] MEDS: VANCOmycin 1 GM/200 ML 1 GM in Premix Bag 1 BAG IV SCH (02:18)
[2021-03-15] MEDS: Bacitracin/Neomycin/Polymyxin B Oint 28.4 GM Tube TOP SCH ×2 (08:09→20:15)
[2021-03-15] MEDS: busPIRone 15 MG Tab PO SCH ×2 (08:16→20:09)
[2021-03-15] MEDS: Citalopram 10 MG Tab PO SCH (08:16)
[2021-03-15] MEDS: lamoTRIgine 100 MG Tab PO SCH ×2 (08:17→20:12)
[2021-03-15] MEDS: Folic Acid 1 MG Tab PO SCH (08:17)
[2021-03-15] MEDS: Docusate Sodium 100 MG Cap PO SCH (08:17)
[2021-03-15] MEDS: Polyethylene Glycol 3350 Powder 17 GM Packet PO SCH (08:18)
[2021-03-15] MEDS: Magnesium Chloride 64 MG Tab.ER PO SCH (08:18)
[2021-03-15] MEDS: risperiDONE 0.5 MG Tab PO SCH ×2 (08:18→20:15)
[2021-03-15] MEDS: Calcium Carbonate 500 MG Tablet PO SCH ×2 (08:18→20:14)
[2021-03-15] MEDS: Midodrine 5 MG Tab PO SCH ×3 (08:18→20:13)
[2021-03-15] MEDS: Calcium Polycarbophil 625 MG Tab PO SCH ×2 (08:19→20:10)
[2021-03-15] MEDS: Cyanocobalamin (Vitamin B12) 1,000 MCG Tab PO SCH (08:19)
[2021-03-15] MEDS: LORazepam 1 MG Tab PO SCH ×2 (08:50→20:19)
[2021-03-15] MEDS: Ertapenem 1 GM in Sodium Chloride 0.9% 50 ML IV SCH (10:05)
[2021-03-15] MEDS: Mineral Oil/Petrolatum,Hydrophilic Ointment 100 GM Jar TOP SCH ×2 (10:15→20:11)
[2021-03-15] MEDS ORDERED: VANCOmycin 1 GM/200 ML 200 ML IV SCH (20:00)
[2021-03-15] MEDS: Melatonin 3 MG Tab PO SCH (20:12)
[2021-03-15] MEDS: traZODone 100 MG Tab PO SCH (20:13)
[2021-03-16] MEDS: Clindamycin in 0.9 % Sod Chlor 600 MG/50 ML BAG IV SCH (01:30)
[2021-03-16] MEDS: Sodium Chloride 0.9% 10 ML Syringe FLUSH PRN (01:31)
[2021-03-16] MEDS: LORazepam 0.5 MG Tab PO SCH ×2 (08:38→20:01)
[2021-03-16] MEDS: busPIRone 15 MG Tab PO SCH ×2 (08:38→20:03)
[2021-03-16] MEDS: Citalopram 10 MG Tab PO SCH (08:39)
[2021-03-16] MEDS: Docusate Sodium 100 MG Cap PO SCH (08:39)
[2021-03-16] MEDS: Folic Acid 1 MG Tab PO SCH (08:40)
[2021-03-16] MEDS: Calcium Polycarbophil 625 MG Tab PO SCH ×2 (08:40→20:03)
[2021-03-16] MEDS: lamoTRIgine 100 MG Tab PO SCH ×2 (08:41→20:04)
[2021-03-16] MEDS: Mineral Oil/Petrolatum,Hydrophilic Ointment 100 GM Jar TOP SCH ×2 (08:41→20:00)
[2021-03-16] MEDS: Calcium Carbonate 500 MG Tablet PO SCH ×2 (08:42→20:05)
[2021-03-16] MEDS: Midodrine 5 MG Tab PO SCH ×3 (08:42→20:04)
[2021-03-16] MEDS: risperiDONE 0.5 MG Tab PO SCH ×2 (08:42→20:05)
[2021-03-16] MEDS: Magnesium Chloride 64 MG Tab.ER PO SCH (08:42)
[2021-03-16] MEDS: Bacitracin/Neomycin/Polymyxin B Oint 28.4 GM Tube TOP SCH ×2 (08:43→19:59)
[2021-03-16] MEDS: Cyanocobalamin (Vitamin B12) 1,000 MCG Tab PO SCH (08:43)
[2021-03-16] MEDS: Amoxicillin/Clavulanate K 875-125 MG Tab PO SCH ×2 (09:27→20:02)
[2021-03-16] MEDS: Sulfamethoxazole/Trimethoprim 800-160 MG Tab PO SCH ×2 (09:27→20:06)
[2021-03-16] MEDS: Melatonin 3 MG Tab PO SCH (20:04)
[2021-03-16] MEDS: traZODone 100 MG Tab PO SCH (20:06)
[2021-03-17] MEDS: LORazepam 0.5 MG Tab PO SCH (07:30)
[2021-03-17] MEDS: Bacitracin/Neomycin/Polymyxin B Oint 28.4 GM Tube TOP SCH (08:29)
[2021-03-17] MEDS: Mineral Oil/Petrolatum,Hydrophilic Ointment 100 GM Jar TOP SCH (08:30)
[2021-03-17] MEDS: risperiDONE 0.5 MG Tab PO SCH (08:31)
[2021-03-17] MEDS: Magnesium Chloride 64 MG Tab.ER PO SCH (08:31)
[2021-03-17] MEDS: Citalopram 10 MG Tab PO SCH (08:31)
[2021-03-17] MEDS: Sulfamethoxazole/Trimethoprim 800-160 MG Tab PO SCH (08:31)
[2021-03-17] MEDS: Midodrine 5 MG Tab PO SCH (08:31)
[2021-03-17] MEDS: Amoxicillin/Clavulanate K 875-125 MG Tab PO SCH (08:31)
[2021-03-17] MEDS: Folic Acid 1 MG Tab PO SCH (08:31)
[2021-03-17] MEDS: Cyanocobalamin (Vitamin B12) 1,000 MCG Tab PO SCH (08:31)
[2021-03-17] MEDS: Calcium Polycarbophil 625 MG Tab PO SCH (08:31)
[2021-03-17] MEDS: lamoTRIgine 100 MG Tab PO SCH (08:32)
[2021-03-17] MEDS: busPIRone 15 MG Tab PO SCH (08:32)
[2021-03-17] MEDS: Calcium Carbonate 500 MG Tablet PO SCH (08:32)
[2021-03-17] MEDS: Docusate Sodium 100 MG Cap PO SCH (08:32)
== END 2021-03-17 10:45 | DRG 603 ==
LOC: FB.MS 11:20 → UNDOADMIN 11:20 → FB.MS 11:21
PROVIDERS: ADMIT Family Medicine; ATTEND Family Medicine
DX: L03.114 Cellulitis of left upper limb (principal); L02.512 Cutaneous abscess of left hand; Q90.9 Down syndrome, unspecified; G30.9 Alzheimer's disease, unspecified; F02.80 Dementia in other diseases classified elsewhere, unspecified severity, without behavioral disturbance, psychotic disturbance, mood disturbance, and anxiety; Z51.5 Encounter for palliative care; Z87.01 Personal history of pneumonia (recurrent); K59.09 Other constipation; N40.0 Benign prostatic hyperplasia without lower urinary tract symptoms; E83.42 Hypomagnesemia; Z20.822 Contact with and (suspected) exposure to COVID-19; H90.3 Sensorineural hearing loss, bilateral; E03.9 Hypothyroidism, unspecified
CPT/HCPCS: 36410; 36415; 73130-LT; 80053; 80202; 82565; 85025; 85651; 86140; 87040; A9270-GY; J0696; J1335; J3370; J3490; J7030; J7050; U0002

== ENCOUNTER 2021-04-14 13:07 | Inpatient (IN) | payer MEDICARE, MEDICAID ==
[2021-04-14] MEDS ORDERED: Ondansetron 4 MG/2 ML SDV IVPUSH ONE (13:33)
[2021-04-14] MEDS ORDERED: Sodium Chloride 0.9% 1,000 ML IV SCH (13:45)
[2021-04-14] MEDS ORDERED: Iopamidol 755 Mg/ML 100 ML Bottle IV ONE (14:49)
[2021-04-14] MEDS: Sodium Chloride 0.9% 10 ML Syringe FLUSH PRN ×2 (14:52→18:11)
[2021-04-14] MEDS: Levofloxacin/Dextrose 5%-Water 500 MG in Premix Bag 1 BAG IV SCH (17:11)
[2021-04-14] MEDS ORDERED: diphenhydrAMINE 25 MG Cap PO PRN (17:13)
[2021-04-14] MEDS ORDERED: LORazepam 1 MG Tab PO PRN (17:13)
[2021-04-14] MEDS ORDERED: ZINC OXIDE TOP PRN (17:13)
[2021-04-14] MEDS ORDERED: [UNRECOGNIZED DRUG - OTHER] TOP PRN (17:13)
[2021-04-14] MEDS ORDERED: COD LIVER OIL TOP PRN (17:13)
[2021-04-14] MEDS ORDERED: Nystatin Crm 15 GM Tube TOP PRN (17:13)
[2021-04-14] MEDS ORDERED: traZODone 50 MG Tab PO PRN (17:13)
[2021-04-14] MEDS ORDERED: Mineral Oil/Petrolatum,Hydrophilic Ointment 100 GM Jar TOP PRN (17:13)
[2021-04-14] MEDS ORDERED: Non-Formulary Medication 1 Each (Ketoconazole [Nizoral 2% Shampoo] 120 ML Bottle) TOP SCH (17:15)
[2021-04-14] MEDS: LORazepam 1 MG Tab PO SCH (20:44)
[2021-04-14] MEDS: lamoTRIgine 100 MG Tab PO SCH (20:44)
[2021-04-14] MEDS: risperiDONE 0.5 MG Tab PO SCH (20:44)
[2021-04-14] MEDS: Midodrine 5 MG Tab PO SCH (20:44)
[2021-04-14] MEDS: Melatonin 3 MG Tab PO SCH (20:44)
[2021-04-14] MEDS: traZODone 50 MG Tab PO SCH (20:47)
[2021-04-14] MEDS ORDERED: traZODone 100 MG Tab PO SCH (21:00)
[2021-04-14] MEDS ORDERED: Bacitracin/Neomycin/Polymyxin B Oint 28.4 GM Tube TOP SCH (21:00)
[2021-04-14] MEDS ORDERED: Mineral Oil/Petrolatum,Hydrophilic Ointment 100 GM Jar TOP SCH (21:00)
[2021-04-14] MEDS ORDERED: busPIRone 10 MG Tab PO SCH (21:00)
[2021-04-15] MEDS ORDERED: Levothyroxine 25 MCG Tab ONE (05:12)
[2021-04-15] MEDS ORDERED: Levothyroxine 112 MCG Tab ONE (05:12)
[2021-04-15] MEDS ORDERED: Acetaminophen 500 MG Tab PO PRN (05:39)
[2021-04-15] MEDS ORDERED: Sodium Chloride 0.9% 1,000 ML IV ONE (05:39)
[2021-04-15] MEDS ORDERED: Fluconazole 150 MG Tab PO SCH (08:30)
[2021-04-15] MEDS ORDERED: Furosemide 20 MG/2 ML VIAL IVPUSH ONE (09:00)
[2021-04-15] MEDS ORDERED: Magnesium Chloride 64 MG Tab.ER PO SCH (09:00)
[2021-04-15] MEDS ORDERED: Folic Acid 1 MG Tab PO SCH (09:00)
[2021-04-15] MEDS: Sodium Chloride 0.9% 10 ML Syringe FLUSH PRN (09:07)
[2021-04-15] MEDS: Midodrine 5 MG Tab PO SCH ×3 (10:09→20:06)
[2021-04-15] MEDS: risperiDONE 0.5 MG Tab PO SCH ×2 (10:10→20:11)
[2021-04-15] MEDS: lamoTRIgine 100 MG Tab PO SCH ×2 (10:10→20:06)
[2021-04-15] MEDS: Mineral Oil/Petrolatum,Hydrophilic Ointment 100 GM Jar TOP SCH ×2 (10:25→20:05)
[2021-04-15] MEDS: Citalopram 10 MG Tab PO SCH (10:28)
[2021-04-15] MEDS: LORazepam 1 MG Tab PO SCH ×2 (10:29→20:10)
[2021-04-15] MEDS: busPIRone 15 MG Tab PO SCH ×2 (10:29→20:05)
[2021-04-15] MEDS: Bacitracin/Neomycin/Polymyxin B Oint 28.4 GM Tube TOP SCH ×2 (10:29→20:07)
[2021-04-15] MEDS: Levofloxacin/Dextrose 5%-Water 500 MG in Premix Bag 1 BAG IV SCH (16:05)
[2021-04-15] MEDS: Melatonin 3 MG Tab PO SCH (20:07)
[2021-04-15] MEDS: traZODone 50 MG Tab PO SCH (20:07)
[2021-04-16] MEDS: Mineral Oil/Petrolatum,Hydrophilic Ointment 100 GM Jar TOP SCH (10:03)
[2021-04-16] MEDS: Citalopram 10 MG Tab PO SCH (10:03)
[2021-04-16] MEDS: busPIRone 15 MG Tab PO SCH (10:03)
[2021-04-16] MEDS: Midodrine 5 MG Tab PO SCH ×2 (10:04→13:20)
[2021-04-16] MEDS: lamoTRIgine 100 MG Tab PO SCH (10:04)
[2021-04-16] MEDS: Bacitracin/Neomycin/Polymyxin B Oint 28.4 GM Tube TOP SCH (10:05)
[2021-04-16] MEDS: risperiDONE 0.5 MG Tab PO SCH (10:08)
[2021-04-16] MEDS: LORazepam 1 MG Tab PO SCH (10:14)
[2021-04-16] MEDS ORDERED: Levofloxacin/Dextrose 5%-Water 500 MG in Premix Bag 1 BAG IV SCH (10:45)
[2021-04-16] MEDS ORDERED: Levofloxacin/Dextrose 5%-Water 500 MG in Premix Bag 1 BAG IV ONE ×2 (10:45→12:30)
== END 2021-04-16 13:50 | disposition home or self-care (01) | DRG 377 ==
LOC: FB.ED 13:07 → FB.MS 16:05
PROVIDERS: ADMIT Emergency Medicine; ATTEND Family Medicine
DX: K92.1 Melena (principal); J18.9 Pneumonia, unspecified organism; E87.1 Hypo-osmolality and hyponatremia; R19.7 Diarrhea, unspecified; T36.0X5A Adverse effect of penicillins, initial encounter; T36.1X5A Adverse effect of cephalosporins and other beta-lactam antibiotics, initial encounter; D64.9 Anemia, unspecified; Q90.9 Down syndrome, unspecified; H54.7 Unspecified visual loss; I50.9 Heart failure, unspecified; K59.09 Other constipation; I95.89 Other hypotension; N40.0 Benign prostatic hyperplasia without lower urinary tract symptoms; G30.9 Alzheimer's disease, unspecified; F02.80 Dementia in other diseases classified elsewhere, unspecified severity, without behavioral disturbance, psychotic disturbance, mood disturbance, and anxiety; F42.9 Obsessive-compulsive disorder, unspecified; E53.8 Deficiency of other specified B group vitamins; Z66 Do not resuscitate; Z98.890 Other specified postprocedural states; E03.9 Hypothyroidism, unspecified; Z79.890 Hormone replacement therapy; Z79.899 Other long term (current) drug therapy; Z20.822 Contact with and (suspected) exposure to COVID-19
CPT/HCPCS: 36415; 71045; 74177; 80053; 82150; 83690; 85025; 85610; 85730; 96374; 99285; J2405; J7030; Q9967; U0002; 31500; 36410; 80048; 83880; A9270-GY; J1940; J1956

== ENCOUNTER 2021-09-07 12:12 | Inpatient (IN) | payer MEDICARE, MEDICAID ==
[2021-09-07] MEDS ORDERED: Sodium Chloride 0.9% 10 ML Syringe FLUSH PRN (12:16)
[2021-09-07] MEDS ORDERED: Sodium Chloride 0.9% 1,000 ML IV SCH ×2 (12:30→15:15)
[2021-09-07 14:03] LABS: ESTIMATED GFR 42 mL/min (>60)
[2021-09-07] MEDS ORDERED: Ondansetron 4 MG/2 ML SDV IVPUSH PRN (15:14)
[2021-09-07] MEDS ORDERED: LORazepam 1 MG Tab PO PRN (16:38)
[2021-09-07] MEDS ORDERED: Triamcinolone Acetonide 0.1% Crm 15 GM Tube TOP PRN (16:38)
[2021-09-07] MEDS ORDERED: Sennosides 8.6 MG Tab PO PRN (16:38)
[2021-09-07] MEDS ORDERED: Nystatin Crm 15 GM Tube TOP PRN (16:38)
[2021-09-07] MEDS ORDERED: traZODone 50 MG Tab PO PRN (16:38)
[2021-09-07] MEDS: Dexamethasone 4 MG/ML SDV IVPUSH SCH (16:59)
[2021-09-07] MEDS: Enoxaparin 40 MG/0.4 ML Syringe SUBCUT SCH (16:59)
[2021-09-07] MEDS ORDERED: REMDESIVIR 100 MG in Sodium Chloride 0.9% 100 ML IV SCH (17:00)
[2021-09-07] MEDS ORDERED: Mineral Oil/Petrolatum,Hydrophilic Ointment 100 GM Jar TOP PRN ×2 (17:03→17:04)
[2021-09-07] MEDS: Midodrine 5 MG Tab PO SCH (17:46)
[2021-09-07] MEDS: lamoTRIgine 100 MG Tab PO SCH (22:14)
[2021-09-07] MEDS: traZODone 100 MG Tab PO SCH (22:14)
[2021-09-07] MEDS: risperiDONE 0.5 MG Tab PO SCH (22:15)
[2021-09-07] MEDS: LORazepam 1 MG Tab PO SCH (22:27)
[2021-09-07] MEDS: busPIRone 15 MG Tab PO SCH (22:29)
[2021-09-07] MEDS: Melatonin 3 MG Tab PO SCH (22:30)
[2021-09-07] MEDS: Calcium Carbonate 500 MG Tablet PO SCH (22:30)
[2021-09-07] MEDS: Calcium Polycarbophil 625 MG Tab PO SCH (22:30)
[2021-09-07] MEDS: Mineral Oil/Petrolatum,Hydrophilic Ointment 100 GM Jar TOP SCH (22:35)
[2021-09-07] MEDS: Sodium Chloride 0.9% 1,000 ML IV SCH (23:18)
[2021-09-08 06:44] LABS: ESTIMATED GFR 75 mL/min (>60)
[2021-09-08] MEDS: busPIRone 15 MG Tab PO SCH ×2 (09:12→20:50)
[2021-09-08] MEDS: Midodrine 5 MG Tab PO SCH ×3 (09:12→17:46)
[2021-09-08] MEDS: risperiDONE 0.5 MG Tab PO SCH ×2 (09:12→20:50)
[2021-09-08] MEDS: Citalopram 10 MG Tab PO SCH (09:12)
[2021-09-08] MEDS: Cyanocobalamin (Vitamin B12) 1,000 MCG Tab PO SCH (09:13)
[2021-09-08] MEDS: lamoTRIgine 100 MG Tab PO SCH ×2 (09:13→20:50)
[2021-09-08] MEDS: Magnesium Chloride 64 MG Tab.ER PO SCH (09:13)
[2021-09-08] MEDS: Dexamethasone 4 MG/ML SDV IVPUSH SCH (09:13)
[2021-09-08] MEDS: Mineral Oil/Petrolatum,Hydrophilic Ointment 100 GM Jar TOP SCH ×2 (09:18→20:51)
[2021-09-08] MEDS: Folic Acid 1 MG Tab PO SCH (09:18)
[2021-09-08] MEDS: Calcium Carbonate 500 MG Tablet PO SCH ×2 (09:18→20:50)
[2021-09-08] MEDS: Calcium Polycarbophil 625 MG Tab PO SCH ×2 (09:19→20:50)
[2021-09-08] MEDS: Docusate Sodium 100 MG Cap PO SCH (10:59)
[2021-09-08] MEDS: LORazepam 1 MG Tab PO SCH ×2 (13:44→20:53)
[2021-09-08] MEDS: Enoxaparin 40 MG/0.4 ML Syringe SUBCUT SCH (16:13)
[2021-09-08] MEDS ORDERED: Non-Formulary Medication 1 Each (Ketoconazole [Nizoral 2% Shampoo] 120 ML Bottle) TOP SCH (16:38)
[2021-09-08] MEDS: Sodium Chloride 0.9% 1,000 ML IV SCH (19:20)
[2021-09-08] MEDS: traZODone 100 MG Tab PO SCH (20:50)
[2021-09-08] MEDS: Melatonin 3 MG Tab PO SCH (20:50)
[2021-09-09] MEDS: Sodium Chloride 0.9% 1,000 ML IV SCH (03:20)
[2021-09-09 07:05] LABS: ESTIMATED GFR 96 mL/min (>60)
[2021-09-09] MEDS ORDERED: Polyethylene Glycol 3350 Powder 17 GM Packet PO SCH (09:00)
[2021-09-09] MEDS: Citalopram 10 MG Tab PO SCH (10:00)
[2021-09-09] MEDS: lamoTRIgine 100 MG Tab PO SCH ×2 (10:01→22:09)
[2021-09-09] MEDS: risperiDONE 0.5 MG Tab PO SCH ×2 (10:01→22:09)
[2021-09-09] MEDS: Midodrine 5 MG Tab PO SCH ×3 (10:01→17:45)
[2021-09-09] MEDS: busPIRone 15 MG Tab PO SCH ×2 (10:01→22:09)
[2021-09-09] MEDS: Cyanocobalamin (Vitamin B12) 1,000 MCG Tab PO SCH (10:01)
[2021-09-09] MEDS: Folic Acid 1 MG Tab PO SCH (10:02)
[2021-09-09] MEDS: Calcium Carbonate 500 MG Tablet PO SCH ×2 (10:03→22:10)
[2021-09-09] MEDS: LORazepam 1 MG Tab PO SCH ×2 (10:05→22:14)
[2021-09-09] MEDS: Magnesium Chloride 64 MG Tab.ER PO SCH (10:06)
[2021-09-09] MEDS: Calcium Polycarbophil 625 MG Tab PO SCH ×2 (10:06→22:09)
[2021-09-09] MEDS: Mineral Oil/Petrolatum,Hydrophilic Ointment 100 GM Jar TOP SCH ×2 (10:07→22:06)
[2021-09-09] MEDS: Docusate Sodium 100 MG Cap PO SCH (10:07)
[2021-09-09] MEDS: Dexamethasone 4 MG/ML SDV IVPUSH SCH (10:20)
[2021-09-09] MEDS: Enoxaparin 40 MG/0.4 ML Syringe SUBCUT SCH (17:44)
[2021-09-09] MEDS: Melatonin 3 MG Tab PO SCH (22:09)
[2021-09-09] MEDS: traZODone 100 MG Tab PO SCH (22:11)
[2021-09-10] MEDS: Citalopram 10 MG Tab PO SCH (08:09)
[2021-09-10] MEDS: Folic Acid 1 MG Tab PO SCH (08:09)
[2021-09-10] MEDS: Calcium Carbonate 500 MG Tablet PO SCH (08:09)
[2021-09-10] MEDS: risperiDONE 0.5 MG Tab PO SCH (08:10)
[2021-09-10] MEDS: Cyanocobalamin (Vitamin B12) 1,000 MCG Tab PO SCH (08:10)
[2021-09-10] MEDS: lamoTRIgine 100 MG Tab PO SCH (08:10)
[2021-09-10] MEDS: Docusate Sodium 100 MG Cap PO SCH (08:10)
[2021-09-10] MEDS: Mineral Oil/Petrolatum,Hydrophilic Ointment 100 GM Jar TOP SCH (08:10)
[2021-09-10] MEDS: busPIRone 15 MG Tab PO SCH (08:10)
[2021-09-10] MEDS: Calcium Polycarbophil 625 MG Tab PO SCH (08:11)
[2021-09-10] MEDS: Magnesium Chloride 64 MG Tab.ER PO SCH (08:11)
[2021-09-10] MEDS: Midodrine 5 MG Tab PO SCH (08:11)
[2021-09-10] MEDS: Dexamethasone 4 MG/ML SDV IVPUSH SCH (08:12)
[2021-09-10] MEDS: LORazepam 1 MG Tab PO SCH (08:28)
== END 2021-09-10 10:00 | DRG 177 ==
LOC: FB.ED 12:12 → FB.MS 15:14
PROVIDERS: ADMIT Emergency Medicine; ATTEND Family Medicine
PROC: 3E0333Z Introduction of Anti-inflammatory into Peripheral Vein, Percutaneous Approach (ICD-10-PCS; principal; 2021-09-07)
DX: U07.1 COVID-19 (principal); J12.82 Pneumonia due to coronavirus disease 2019; R53.1 Weakness; N17.9 Acute kidney failure, unspecified; E86.0 Dehydration; I95.9 Hypotension, unspecified; R74.8 Abnormal levels of other serum enzymes; Z51.5 Encounter for palliative care; R79.89 Other specified abnormal findings of blood chemistry; I50.9 Heart failure, unspecified; Q90.9 Down syndrome, unspecified; Z66 Do not resuscitate; H54.7 Unspecified visual loss; H90.3 Sensorineural hearing loss, bilateral; H01.009 Unspecified blepharitis unspecified eye, unspecified eyelid; H47.20 Unspecified optic atrophy; K59.09 Other constipation; N40.0 Benign prostatic hyperplasia without lower urinary tract symptoms; F42.9 Obsessive-compulsive disorder, unspecified; E83.42 Hypomagnesemia; G30.9 Alzheimer's disease, unspecified; E55.9 Vitamin D deficiency, unspecified; E83.51 Hypocalcemia; L21.9 Seborrheic dermatitis, unspecified; F02.80 Dementia in other diseases classified elsewhere, unspecified severity, without behavioral disturbance, psychotic disturbance, mood disturbance, and anxiety; Z87.01 Personal history of pneumonia (recurrent); G47.30 Sleep apnea, unspecified; E03.9 Hypothyroidism, unspecified; Z79.899 Other long term (current) drug therapy; Z79.890 Hormone replacement therapy
CPT/HCPCS: 36415; 71045; 80053; 83605; 83880; 84484; 85025; 96360; 96361; 99285; J7030; 51701; 71250; 99223; 99233; 99238; A9270-GY; J1100; J1650; J3490

== ENCOUNTER 2021-09-15 10:28 | Inpatient (IN) | payer MEDICARE, MEDICAID ==
[2021-09-15] MEDS: Sodium Chloride 0.9% 1,000 ML IV STA ×2 (11:24→18:09)
[2021-09-15 11:45] LABS: ESTIMATED GFR 75 mL/min (>60)
[2021-09-15 11:45] LABS: BASE EXCESS VENOUS,POC 1 mmol/L (-2 - 3+); PCO2 VENOUS,POC 36 mmHg (41-51); PH VENOUS,POC 7.45 pH Units (7.32-7.43)
[2021-09-15] MEDS ORDERED: LORazepam 2 MG/ML SDV IVPUSH STA (13:03)
[2021-09-15] MEDS ORDERED: Iopamidol 755 Mg/ML 75 ML Bottle IV ONE ×2 (13:21→21:03)
[2021-09-15] MEDS: Ciprofloxacin in D5W 400 MG in Premix Bag 1 BAG IV SCH ×2 (13:33)
[2021-09-15] MEDS: Sodium Chloride 0.9% 10 ML Syringe FLUSH PRN (13:52)
[2021-09-15] MEDS ORDERED: Ondansetron 4 MG/2 ML SDV IV PRN (16:51)
[2021-09-15] MEDS ORDERED: LORazepam 1 MG Tab PO PRN (16:58)
[2021-09-15] MEDS ORDERED: Mineral Oil/Petrolatum,Hydrophilic Ointment 100 GM Jar TOP PRN (16:58)
[2021-09-15] MEDS ORDERED: Sennosides 8.6 MG Tab PO PRN (16:58)
[2021-09-15] MEDS ORDERED: Nystatin Crm 15 GM Tube TOP PRN (16:58)
[2021-09-15] MEDS ORDERED: traZODone 50 MG Tab PO PRN (16:58)
[2021-09-15] MEDS ORDERED: COD LIVER OIL TOP PRN (16:58)
[2021-09-15] MEDS ORDERED: Triamcinolone Acetonide 0.1% Crm 15 GM Tube TOP PRN (16:58)
[2021-09-15] MEDS ORDERED: ZINC OXIDE TOP PRN (16:58)
[2021-09-15] MEDS ORDERED: [UNRECOGNIZED DRUG - OTHER] TOP PRN (16:58)
[2021-09-15] MEDS ORDERED: Non-Formulary Medication 1 Each (Ketoconazole [Nizoral 2% Shampoo] 120 ML Bottle) TOP SCH (17:00)
[2021-09-15] MEDS: Enoxaparin 40 MG/0.4 ML Syringe SUBCUT SCH (18:03)
[2021-09-15] MEDS ORDERED: Midodrine 5 MG Tab PO SCH (21:00)
[2021-09-15] MEDS ORDERED: Mineral Oil/Petrolatum,Hydrophilic Ointment 100 GM Jar TOP SCH (21:00)
[2021-09-15] MEDS: risperiDONE 0.5 MG Tab PO SCH (21:29)
[2021-09-15] MEDS: Calcium Carbonate 500 MG Tablet PO SCH (21:29)
[2021-09-15] MEDS: Melatonin 3 MG Tab PO SCH (21:29)
[2021-09-15] MEDS: busPIRone 15 MG Tab PO SCH (21:46)
[2021-09-15] MEDS: lamoTRIgine 100 MG Tab PO SCH (21:47)
[2021-09-15] MEDS: Calcium Polycarbophil 625 MG Tab PO SCH (21:47)
[2021-09-15] MEDS: traZODone 100 MG Tab PO SCH (21:47)
[2021-09-16] MEDS: Ciprofloxacin in D5W 400 MG in Premix Bag 1 BAG IV SCH ×2 (00:54)
[2021-09-16] MEDS: Sodium Chloride 0.9% 10 ML Syringe FLUSH PRN ×3 (00:56→09:56)
[2021-09-16 06:29] LABS: ESTIMATED GFR 96 mL/min (>60)
[2021-09-16] MEDS ORDERED: Mineral Oil/Petrolatum,Hydrophilic Ointment 100 GM Jar TOP PRN (07:46)
[2021-09-16] MEDS ORDERED: Polyethylene Glycol 3350 Powder 17 GM Packet PO SCH (09:00)
[2021-09-16] MEDS ORDERED: Pantoprazole 40 MG in Sodium Chloride 0.9% 100 ML IV SCH (09:00)
[2021-09-16] MEDS: Ciprofloxacin 500 MG Tab PO SCH ×2 (09:01→18:15)
[2021-09-16] MEDS: Midodrine 5 MG Tab PO SCH ×3 (09:02→18:16)
[2021-09-16] MEDS: busPIRone 15 MG Tab PO SCH ×2 (09:07→20:53)
[2021-09-16] MEDS: Cyanocobalamin (Vitamin B12) 1,000 MCG Tab PO SCH (09:08)
[2021-09-16] MEDS: lamoTRIgine 100 MG Tab PO SCH ×2 (09:08→20:53)
[2021-09-16] MEDS: Citalopram 10 MG Tab PO SCH (09:08)
[2021-09-16] MEDS: Calcium Carbonate 500 MG Tablet PO SCH ×2 (09:09→20:53)
[2021-09-16] MEDS: Docusate Sodium 100 MG Cap PO SCH (09:09)
[2021-09-16] MEDS: Calcium Polycarbophil 625 MG Tab PO SCH ×2 (09:11→20:52)
[2021-09-16] MEDS: Folic Acid 1 MG Tab PO SCH (09:11)
[2021-09-16] MEDS: Mineral Oil/Petrolatum,Hydrophilic Ointment 100 GM Jar TOP SCH ×2 (09:11→20:53)
[2021-09-16] MEDS: Magnesium Chloride 64 MG Tab.ER PO SCH (09:13)
[2021-09-16] MEDS: risperiDONE 0.5 MG Tab PO SCH ×2 (09:13→20:53)
[2021-09-16] MEDS: Pantoprazole 40 MG Vial IVPUSH SCH (09:14)
[2021-09-16] MEDS: LORazepam 1 MG Tab PO SCH ×2 (09:23→22:04)
[2021-09-16] MEDS: Enoxaparin 40 MG/0.4 ML Syringe SUBCUT SCH (18:15)
[2021-09-16] MEDS: Melatonin 3 MG Tab PO SCH (20:52)
[2021-09-16] MEDS: traZODone 100 MG Tab PO SCH (20:53)
[2021-09-17] MEDS: Ciprofloxacin 500 MG Tab PO SCH (06:54)
[2021-09-17 07:13] LABS: ESTIMATED GFR 96 mL/min (>60)
[2021-09-17] MEDS: Docusate Sodium 100 MG Cap PO SCH (08:03)
[2021-09-17] MEDS: Magnesium Chloride 64 MG Tab.ER PO SCH (08:03)
[2021-09-17] MEDS: lamoTRIgine 100 MG Tab PO SCH (08:04)
[2021-09-17] MEDS: Cyanocobalamin (Vitamin B12) 1,000 MCG Tab PO SCH (08:04)
[2021-09-17] MEDS: Midodrine 5 MG Tab PO SCH (08:04)
[2021-09-17] MEDS: busPIRone 15 MG Tab PO SCH (08:04)
[2021-09-17] MEDS: Folic Acid 1 MG Tab PO SCH (08:05)
[2021-09-17] MEDS: Citalopram 10 MG Tab PO SCH (08:06)
[2021-09-17] MEDS: risperiDONE 0.5 MG Tab PO SCH (08:07)
[2021-09-17] MEDS: Calcium Carbonate 500 MG Tablet PO SCH (08:08)
[2021-09-17] MEDS: Mineral Oil/Petrolatum,Hydrophilic Ointment 100 GM Jar TOP SCH (08:08)
[2021-09-17] MEDS: Calcium Polycarbophil 625 MG Tab PO SCH (08:08)
[2021-09-17] MEDS: Pantoprazole 40 MG Vial IVPUSH SCH (08:09)
[2021-09-17 08:24] VITALS: BP 99/67; PULSE 72
== END 2021-09-17 11:12 | disposition home health service (06) | DRG 690 ==
LOC: FB.ED 10:28 → FB.MS 16:51
PROVIDERS: ADMIT Emergency Medicine; ATTEND Family Medicine
DX: N39.0 Urinary tract infection, site not specified (principal); N17.9 Acute kidney failure, unspecified; E46 Unspecified protein-calorie malnutrition; Q90.9 Down syndrome, unspecified; Z51.5 Encounter for palliative care; U09.9 Post COVID-19 condition, unspecified; B95.2 Enterococcus as the cause of diseases classified elsewhere; Z79.890 Hormone replacement therapy; R31.9 Hematuria, unspecified; H90.3 Sensorineural hearing loss, bilateral; I11.0 Hypertensive heart disease with heart failure; I50.9 Heart failure, unspecified; K59.09 Other constipation; N40.0 Benign prostatic hyperplasia without lower urinary tract symptoms; G30.9 Alzheimer's disease, unspecified; F02.80 Dementia in other diseases classified elsewhere, unspecified severity, without behavioral disturbance, psychotic disturbance, mood disturbance, and anxiety; E83.42 Hypomagnesemia; D53.9 Nutritional anemia, unspecified; E03.9 Hypothyroidism, unspecified; R79.89 Other specified abnormal findings of blood chemistry; R74.8 Abnormal levels of other serum enzymes; Z68.29 Body mass index [BMI] 29.0-29.9, adult; Z87.01 Personal history of pneumonia (recurrent); Z79.899 Other long term (current) drug therapy
CPT/HCPCS: 36415; 71045; 71275; 80053; 81001; 83605; 83880; 84484; 85025; 85379; 87040; 87086; 87088; 87186; 93005; 96361; 96365; 96375; 99285-25; A9270-GY; C9113; J0744; J1650; J2060; J3490; J7030; Q9967

== ENCOUNTER 2021-12-31 19:45 | Emergency (ER) | payer MEDICARE, MEDICAID ==
[2021-12-31] MEDS ORDERED: Sulfamethoxazole/Trimethoprim 800-160 MG Tab PO ONE (19:46)
== END 2021-12-31 21:38 | disposition home or self-care (01) ==
LOC: FB.ED 19:45
DX: N39.0 Urinary tract infection, site not specified (principal); I50.9 Heart failure, unspecified; G30.9 Alzheimer's disease, unspecified; F02.80 Dementia in other diseases classified elsewhere, unspecified severity, without behavioral disturbance, psychotic disturbance, mood disturbance, and anxiety; E03.9 Hypothyroidism, unspecified; Z86.16 Personal history of COVID-19; Z79.899 Other long term (current) drug therapy
CPT/HCPCS: 81001; 87086; 99283; A9270

== ENCOUNTER 2022-03-15 11:15 | Inpatient (IN) | payer MEDICARE, MEDICAID ==
[2022-03-15] MEDS ORDERED: Sodium Chloride 0.9% 10 ML Syringe FLUSH PRN (11:32)
[2022-03-15 12:42] LABS: ESTIMATED GFR 75 mL/min (>60)
[2022-03-15] MEDS: Piperacillin/Tazobactam 3.375 GM in Sodium Chloride 0.9% 50 ML IV SCH ×2 (14:23→20:46)
[2022-03-15] MEDS: Albuterol/Ipratropium 3.0-0.5 MG/3 ML Neb Soln NEB SCH ×2 (14:23→20:56)
[2022-03-15] MEDS ORDERED: Furosemide 40 MG/4 ML VIAL IVPUSH ONE (14:48)
[2022-03-15] MEDS ORDERED: Sodium Chloride 0.9% 1,000 ML IV SCH (15:45)
[2022-03-15] MEDS ORDERED: Ondansetron 4 MG/2 ML SDV IV PRN (15:50)
[2022-03-15 15:55] LABS: CORONAVIRUS COVID-19 NAA NEGATIVE (NEGATIVE)
[2022-03-15] MEDS ORDERED: Triamcinolone Acetonide 0.1% Crm 15 GM Tube TOP PRN (15:57)
[2022-03-15] MEDS ORDERED: Nystatin Crm 15 GM Tube TOP PRN (15:57)
[2022-03-15] MEDS ORDERED: Sennosides 8.6 MG Tab PO PRN (15:57)
[2022-03-15] MEDS ORDERED: LORazepam 1 MG Tab PO PRN (15:57)
[2022-03-15] MEDS ORDERED: traZODone 50 MG Tab PO PRN (15:57)
[2022-03-15] MEDS ORDERED: Mineral Oil/Petrolatum Oint 100 GM OINT TOP PRN ×2 (16:12→16:25)
[2022-03-15] MEDS ORDERED: ZINC OXIDE TOP PRN (16:14)
[2022-03-15] MEDS ORDERED: COD LIVER OIL TOP PRN (16:14)
[2022-03-15] MEDS ORDERED: Albuterol 0.083% 2.5 MG/3 ML Neb Soln NEB PRN (17:36)
[2022-03-15] MEDS: Enoxaparin 40 MG/0.4 ML Syringe SUBCUT SCH (20:48)
[2022-03-15] MEDS: Midodrine 5 MG Tab PO SCH (20:48)
[2022-03-15] MEDS: busPIRone 15 MG Tab PO SCH (20:48)
[2022-03-15] MEDS: Calcium Polycarbophil 625 MG Tab PO SCH (20:49)
[2022-03-15] MEDS: lamoTRIgine 100 MG Tab PO SCH (20:50)
[2022-03-15] MEDS: risperiDONE 0.5 MG Tab PO SCH (20:51)
[2022-03-15] MEDS: Calcium Carbonate 500 MG Tablet PO SCH (20:51)
[2022-03-15] MEDS: Melatonin 3 MG Tab PO SCH (20:51)
[2022-03-15] MEDS: traZODone 100 MG Tab PO SCH (20:53)
[2022-03-15] MEDS: LORazepam 1 MG Tab PO SCH (20:56)
[2022-03-16] MEDS: Albuterol/Ipratropium 3.0-0.5 MG/3 ML Neb Soln NEB SCH ×4 (02:28→20:26)
[2022-03-16] MEDS: Piperacillin/Tazobactam 3.375 GM in Sodium Chloride 0.9% 50 ML IV SCH ×4 (02:28→20:26)
[2022-03-16] MEDS: Levothyroxine 150 MCG Tab PO SCH (05:50)
[2022-03-16] MEDS: Midodrine 5 MG Tab PO SCH ×3 (08:17→17:21)
[2022-03-16] MEDS: LORazepam 1 MG Tab PO SCH ×2 (08:18→16:14)
[2022-03-16] MEDS: Citalopram 10 MG Tab PO SCH (08:19)
[2022-03-16] MEDS: Docusate Sodium 100 MG Cap PO SCH (08:19)
[2022-03-16] MEDS: Calcium Polycarbophil 625 MG Tab PO SCH ×2 (08:19→20:27)
[2022-03-16] MEDS: busPIRone 15 MG Tab PO SCH ×2 (08:19→20:27)
[2022-03-16] MEDS: Magnesium Chloride 64 MG Tab.ER PO SCH (08:20)
[2022-03-16] MEDS: Cyanocobalamin (Vitamin B12) 1,000 MCG Tab PO SCH (08:20)
[2022-03-16] MEDS: risperiDONE 0.5 MG Tab PO SCH ×2 (08:20→20:27)
[2022-03-16] MEDS: Calcium Carbonate 500 MG Tablet PO SCH ×2 (08:20→20:28)
[2022-03-16] MEDS: lamoTRIgine 100 MG Tab PO SCH ×2 (08:20→20:28)
[2022-03-16] MEDS: Folic Acid 1 MG Tab PO SCH (08:20)
[2022-03-16 08:23] LABS: ESTIMATED GFR 85 mL/min (>60)
[2022-03-16] MEDS ORDERED: Sodium Chloride 0.9% 500 ML IV ONE (09:53)
[2022-03-16] MEDS: Sodium Chloride 0.9% 1,000 ML IV SCH ×2 (10:31→18:36)
[2022-03-16] MEDS ORDERED: Non-Formulary Medication 1 Each (Ketoconazole [Nizoral 2% Shampoo] 120 ML Bottle) TOP SCH (15:57)
[2022-03-16] MEDS: Enoxaparin 40 MG/0.4 ML Syringe SUBCUT SCH (17:20)
[2022-03-16] MEDS: traZODone 100 MG Tab PO SCH (20:27)
[2022-03-16] MEDS: Melatonin 3 MG Tab PO SCH (20:28)
[2022-03-17] MEDS: Albuterol/Ipratropium 3.0-0.5 MG/3 ML Neb Soln NEB SCH ×2 (01:49→07:39)
[2022-03-17] MEDS: Piperacillin/Tazobactam 3.375 GM in Sodium Chloride 0.9% 50 ML IV SCH ×2 (01:49→07:39)
[2022-03-17] MEDS: Sodium Chloride 0.9% 1,000 ML IV SCH (03:53)
[2022-03-17] MEDS: Levothyroxine 150 MCG Tab PO SCH (06:02)
[2022-03-17] MEDS: Folic Acid 1 MG Tab PO SCH (07:59)
[2022-03-17] MEDS: lamoTRIgine 100 MG Tab PO SCH (07:59)
[2022-03-17] MEDS: busPIRone 15 MG Tab PO SCH (07:59)
[2022-03-17] MEDS: Magnesium Chloride 64 MG Tab.ER PO SCH (07:59)
[2022-03-17] MEDS: Citalopram 10 MG Tab PO SCH (07:59)
[2022-03-17] MEDS: Docusate Sodium 100 MG Cap PO SCH (07:59)
[2022-03-17] MEDS: LORazepam 1 MG Tab PO SCH (07:59)
[2022-03-17] MEDS: Cyanocobalamin (Vitamin B12) 1,000 MCG Tab PO SCH (07:59)
[2022-03-17] MEDS: risperiDONE 0.5 MG Tab PO SCH (07:59)
[2022-03-17] MEDS: Calcium Polycarbophil 625 MG Tab PO SCH (08:00)
[2022-03-17] MEDS: Calcium Carbonate 500 MG Tablet PO SCH (08:00)
[2022-03-17] MEDS: Midodrine 5 MG Tab PO SCH ×2 (08:00→11:11)
[2022-03-17] MEDS ORDERED: Polyethylene Glycol 3350 Powder 17 GM Packet PO SCH (09:00)
== END 2022-03-17 11:38 | disposition home or self-care (01) | DRG 100 ==
LOC: FB.ED 11:15 → FB.MS 16:01
PROVIDERS: ADMIT Emergency Medicine; ATTEND Family Medicine
DX: R56.9 Unspecified convulsions (principal); J69.0 Pneumonitis due to inhalation of food and vomit; J18.9 Pneumonia, unspecified organism; N30.00 Acute cystitis without hematuria; Z51.5 Encounter for palliative care; H54.7 Unspecified visual loss; H90.3 Sensorineural hearing loss, bilateral; H01.009 Unspecified blepharitis unspecified eye, unspecified eyelid; H47.20 Unspecified optic atrophy; L65.9 Nonscarring hair loss, unspecified; H55.00 Unspecified nystagmus; B35.1 Tinea unguium; Z20.822 Contact with and (suspected) exposure to COVID-19; B35.3 Tinea pedis; E03.9 Hypothyroidism, unspecified; K59.09 Other constipation; Q90.9 Down syndrome, unspecified; G30.9 Alzheimer's disease, unspecified; F42.9 Obsessive-compulsive disorder, unspecified; E83.42 Hypomagnesemia; F02.80 Dementia in other diseases classified elsewhere, unspecified severity, without behavioral disturbance, psychotic disturbance, mood disturbance, and anxiety; E55.9 Vitamin D deficiency, unspecified; E53.9 Vitamin B deficiency, unspecified; L21.9 Seborrheic dermatitis, unspecified; Z86.16 Personal history of COVID-19; N40.0 Benign prostatic hyperplasia without lower urinary tract symptoms; Z79.890 Hormone replacement therapy; Z87.01 Personal history of pneumonia (recurrent); Z79.899 Other long term (current) drug therapy
CPT/HCPCS: 0240U; 36415; 71045; 80053; 81001; 83605; 83880; 84484; 85025; 86140; 87040; 87086; 87088; 87186; 93005; 93010; 94640; 94762; 99223; 99238; 99285; A9270-GY; J1650; J2543; J7030; J7040; J7620

== ENCOUNTER 2022-08-05 17:11 | Emergency (ER) | payer MEDICARE, MEDICAID ==
[2022-08-05] MEDS ORDERED: Sulfamethoxazole/Trimethoprim 800-160 MG Tab PO ONE (17:12)
== END 2022-08-05 18:10 | disposition home or self-care (01) ==
LOC: FB.ED 17:11
DX: T83.090A Other mechanical complication of cystostomy catheter, initial encounter (principal); I50.9 Heart failure, unspecified; E03.9 Hypothyroidism, unspecified; Z86.16 Personal history of COVID-19; Z79.899 Other long term (current) drug therapy
CPT/HCPCS: 99283; A9270-GY

== ENCOUNTER 2022-10-23 12:05 | Emergency (ER) | payer MEDICARE, MEDICAID ==
[2022-10-23 13:59] LABS: BILIRUBIN,URINE NEGATIVE (NEGATIVE); GLUCOSE,URINE NORMAL (NORMAL); KETONES,URINE NEGATIVE (NEGATIVE); LEUKOCYTE ESTERASE,URINE LARGE (NEGATIVE); NITRITE,URINE NEGATIVE (NEGATIVE); OCCULT BLOOD,URINE MODERATE (NEGATIVE); PROTEIN,URINE 30 mg/dL (NEGATIVE); UROBILINOGEN,URINE NORMAL (NEGATIVE)
[2022-10-23 14:03] LABS: APPEARANCE,URINE CLOUDY (CLEAR); COLOR,URINE YELLOW (YELLOW); RBC,URINE 0-5 (0-5); SQUAMOUS EPITHELIAL CELLS,UR OCCASIONAL (NS,R,O)
[2022-10-23 14:04] LABS: AMORPHOUS SEDIMENT,URINE MANY; BACTERIA,URINE MANY (NS); TRIPLE PHOSPHATE CRYSTALS,UR MODERATE (NS)
== END 2022-10-23 14:30 | disposition home or self-care (01) ==
LOC: FB.ED 12:05
DX: T83.511A Infection and inflammatory reaction due to indwelling urethral catheter, initial encounter (principal); N39.0 Urinary tract infection, site not specified; E03.9 Hypothyroidism, unspecified; Z79.899 Other long term (current) drug therapy; Z86.16 Personal history of COVID-19
CPT/HCPCS: 51702; 81001; 87086; 87088; 87186; 99283

== ENCOUNTER 2022-10-31 10:34 | Emergency (ER) | payer MEDICARE, MEDICAID | END 2022-10-31 12:41 | disposition home or self-care (01) | LOC: FB.ED 10:34 | DX: T83.098A Other mechanical complication of other urinary catheter, initial encounter (principal); K12.2 Cellulitis and abscess of mouth; I50.9 Heart failure, unspecified; E03.9 Hypothyroidism, unspecified; Z86.16 Personal history of COVID-19; Z79.899 Other long term (current) drug therapy | CPT/HCPCS: 12001; 99283 ==

== ENCOUNTER 2023-01-07 18:14 | Emergency (ER) | payer MEDICARE, MEDICAID ==
[2023-01-07 19:47] LABS: BILIRUBIN,URINE NEGATIVE (NEGATIVE); GLUCOSE,URINE NORMAL (NORMAL); KETONES,URINE NEGATIVE (NEGATIVE); LEUKOCYTE ESTERASE,URINE SMALL (NEGATIVE); NITRITE,URINE NEGATIVE (NEGATIVE); OCCULT BLOOD,URINE NEGATIVE (NEGATIVE); PROTEIN,URINE NEGATIVE (NEGATIVE); UROBILINOGEN,URINE NORMAL (NEGATIVE)
[2023-01-07] MEDS ORDERED: Amoxicillin/Clavulanate K 875-125 MG Tab PO ONE (19:50)
[2023-01-07 19:52] LABS: APPEARANCE,URINE SLIGHTLY CLOUDY (CLEAR); BACTERIA,URINE FEW (NS); COLOR,URINE YELLOW (YELLOW); RBC,URINE 0-5 (0-5); SQUAMOUS EPITHELIAL CELLS,UR OCCASIONAL (NS,R,O)
== END 2023-01-07 20:20 | disposition home or self-care (01) ==
LOC: FB.ED 18:14
DX: T83.091A Other mechanical complication of indwelling urethral catheter, initial encounter (principal); E03.9 Hypothyroidism, unspecified; I50.9 Heart failure, unspecified; Z86.16 Personal history of COVID-19; Z79.899 Other long term (current) drug therapy
CPT/HCPCS: 51705; 81001; 87086; 87088; 87186; 99283; 99284; A9270-GY

== ENCOUNTER 2023-03-01 19:50 | Inpatient (IN) | payer MEDICARE, MEDICAID ==
[2023-03-01 20:49] LABS: HEMATOCRIT 35.5 % (38.3-50.1); HEMOGLOBIN 11.8 g/dL (12.9-17.7); MEAN CORPUSCULAR HEMOGLOBIN 36.3 pg (27.0-33.3); MEAN CORPUSCULAR HGB CONC 33.4 g/dL (28.7-35.3); MEAN CORPUSCULAR VOLUME 108.8 fL (80.8-98.7); MEAN PLATELET VOLUME 7.1 fL (6.7-11.0); PLATELET COUNT,PLT 261 x10(3)uL (117-477); RED BLOOD CELL COUNT 3.26 x10(6)uL (3.90-5.90); RED CELL DISTRIBUTION WIDTH 13.1 % (12.4-15.0); WHITE BLOOD CELL COUNT,WBC 11.7 x10-3/uL (3.2-10.1)
[2023-03-01 20:53] LABS: BASE EXCESS VENOUS,POC 4 mmol/L (-2 - 3+); PCO2 VENOUS,POC 54 mmHg (41-51); PH VENOUS,POC 7.36 pH Units (7.32-7.43)
[2023-03-01 20:56] LABS: BLOOD UREA NITROGEN,BUN 15 mg/dL (7-18); BUN/CREATININE RATIO 13.6 (9-20); CALCIUM 8.9 mg/dL (8.6-10.2); CARBON DIOXIDE,CO2 33 mmol/L (21-32); CHLORIDE,CL 94 mmol/L (100-110); CREATININE 1.1 mg/dL (0.70-1.30); EST CRCL DRUG DOSING (CG) 56.81 mL/min; ESTIMATED GFR 75 mL/min (>60); GLUCOSE RANDOM 100 mg/dL (80-116); POTASSIUM,K 4.9 mmol/L (3.5-5.3); SODIUM,NA 128 mmol/L (135-145)
[2023-03-01 20:59] LABS: INFLUENZA A NAA NEGATIVE (NEGATIVE); INFLUENZA B NAA NEGATIVE (NEGATIVE); RESPIRATORY SYNCYTIAL VIR NAA NEGATIVE (NEGATIVE)
[2023-03-01] MEDS ORDERED: Sodium Chloride 0.9% 500 ML IV ONE (20:59)
[2023-03-01 21:00] LABS: BILIRUBIN,URINE NEGATIVE (NEGATIVE); GLUCOSE,URINE NORMAL (NORMAL); KETONES,URINE NEGATIVE (NEGATIVE); LEUKOCYTE ESTERASE,URINE LARGE (NEGATIVE); NITRITE,URINE POSITIVE (NEGATIVE); OCCULT BLOOD,URINE NEGATIVE (NEGATIVE); PROTEIN,URINE NEGATIVE (NEGATIVE); UROBILINOGEN,URINE NORMAL (NEGATIVE)
[2023-03-01 21:02] LABS: A/G RATIO 0.7; ALANINE AMINOTRANSFERASE,ALT 32 U/L (12-36); ALBUMIN 2.9 g/dL (3.2-4.6); ALKALINE PHOSPHATASE 126 IU/L (56-112); ASPARTATE AMNIOTRANSFERASE,AST 31 IU/L (5-25); BILIRUBIN TOTAL 0.2 mg/dL (0.1-1.3); MAGNESIUM 1.9 mg/dL (1.8-2.5); PROTEIN TOTAL,TP 6.8 g/dL (6.0-8.0)
[2023-03-01 21:02] LABS: CORONAVIRUS COVID-19 NAA NEGATIVE (NEGATIVE)
[2023-03-01 21:03] LABS: LYMPHOCYTES PERCENT MAN 8 % (13-37); MONOCYTES PERCENT MAN 4 % (4-12); SEG NEUTROPHILS PERCENT MAN 88 % (46-82)
[2023-03-01 21:06] LABS: TROPONIN I 15.9 pg/mL (4.0-60.3)
[2023-03-01 21:07] LABS: APPEARANCE,URINE SLIGHTLY CLOUDY (CLEAR); COLOR,URINE YELLOW (YELLOW); RBC,URINE 0-5 (0-5); WBC,URINE 50-75 (0-5)
[2023-03-01 21:08] LABS: BACTERIA,URINE MODERATE (NS); SQUAMOUS EPITHELIAL CELLS,UR OCCASIONAL (NS,R,O)
[2023-03-01] MEDS ORDERED: Piperacillin/Tazobactam 3.375 GM in Sodium Chloride 0.9% 50 ML IV ONE (21:18)
[2023-03-01] MEDS ORDERED: VANCOmycin 2 GM/400 ML 2 GM in Premix Bag 1 BAG IV ONE (21:30)
[2023-03-02] MEDS ORDERED: Acetaminophen 650 MG Supp RECTAL PRN (00:03)
[2023-03-02] MEDS ORDERED: Albuterol 0.083% 2.5 MG/3 ML Neb Soln NEB PRN (00:03)
[2023-03-02] MEDS ORDERED: Ondansetron 4 MG/2 ML SDV IV PRN (00:03)
[2023-03-02] MEDS: Sodium Chloride 0.9% 1,000 ML IV SCH ×2 (01:41→16:25)
[2023-03-02] MEDS: Pantoprazole 40 MG Vial IVPUSH SCH ×2 (01:41→11:51)
[2023-03-02] MEDS: Enoxaparin 40 MG/0.4 ML Syringe SUBCUT SCH ×2 (01:41→20:40)
[2023-03-02] MEDS: Piperacillin/Tazobactam 3.375 GM in Sodium Chloride 0.9% 50 ML IV SCH ×4 (04:05→21:48)
[2023-03-02] MEDS ORDERED: VANCOmycin 1 GM/200 ML 1 GM in Premix Bag 1 BAG IV SCH ×2 (06:00→20:00)
[2023-03-02] MEDS: Albuterol/Ipratropium 3.0-0.5 MG/3 ML Neb Soln NEB SCH ×4 (06:00→20:40)
[2023-03-02 06:52] LABS: BASOPHILS PERCENT AUTO 0.3 % (0.3-3.8); EOSINOPHILS ABSOLUTE AUTO 0.1 x10-3/uL (0.0-0.6); EOSINOPHILS PERCENT AUTO 0.9 % (0.1-6.8); HEMATOCRIT 33.9 % (38.3-50.1); HEMOGLOBIN 11.4 g/dL (12.9-17.7); LYMPHOCYTES ABSOLUTE AUTO 1.2 x10-3/uL (0.5-4.5); LYMPHOCYTES PERCENT AUTO 11.7 % (15.8-45.3); MEAN CORPUSCULAR HEMOGLOBIN 36.7 pg (27.0-33.3); MEAN CORPUSCULAR HGB CONC 33.6 g/dL (28.7-35.3); MEAN CORPUSCULAR VOLUME 109.3 fL (80.8-98.7); MEAN PLATELET VOLUME 7.4 fL (6.7-11.0); MONOCYTES ABSOLUTE AUTO 0.4 x10-3/uL (0.0-1.2); MONOCYTES PERCENT AUTO 3.6 % (5.5-15.2); NEUTROPHILS ABSOLUTE AUTO 8.7 x10-3/uL (1.7-6.9); NEUTROPHILS PERCENT AUTO 83.5 % (40.3-71.8); PLATELET COUNT,PLT 225 x10(3)uL (117-477); RED BLOOD CELL COUNT 3.11 x10(6)uL (3.90-5.90); RED CELL DISTRIBUTION WIDTH 13.2 % (12.4-15.0); WHITE BLOOD CELL COUNT,WBC 10.4 x10-3/uL (3.2-10.1)
[2023-03-02 07:01] LABS: BLOOD UREA NITROGEN,BUN 12 mg/dL (7-18); BUN/CREATININE RATIO 13.3 (9-20); CALCIUM 8.5 mg/dL (8.6-10.2); CARBON DIOXIDE,CO2 31 mmol/L (21-32); CHLORIDE,CL 97 mmol/L (100-110); CREATININE 0.9 mg/dL (0.70-1.30); EST CRCL DRUG DOSING (CG) 69.43 mL/min; ESTIMATED GFR 95 mL/min (>60); GLUCOSE RANDOM 102 mg/dL (80-116); POTASSIUM,K 4.9 mmol/L (3.5-5.3); SODIUM,NA 131 mmol/L (135-145)
[2023-03-02] MEDS: Polyethylene Glycol 3350 Powder 17 GM Packet PO SCH (11:48)
[2023-03-02] MEDS: lamoTRIgine 100 MG Tab PO SCH ×2 (11:48→20:40)
[2023-03-02] MEDS: Midodrine 5 MG Tab PO SCH ×2 (11:50→17:55)
[2023-03-02] MEDS: LORazepam 1 MG Tab PO SCH (16:57)
[2023-03-02] MEDS: busPIRone 15 MG Tab PO SCH (20:39)
[2023-03-02] MEDS: Calcium Polycarbophil 625 MG Tab PO SCH (20:40)
[2023-03-02] MEDS: Sodium Chloride 1 GM Tab PO SCH (20:41)
[2023-03-02] MEDS: risperiDONE 0.5 MG Tab PO SCH (20:41)
[2023-03-02] MEDS: traZODone 100 MG Tab PO SCH (20:41)
[2023-03-02] MEDS: Melatonin 3 MG Tab PO SCH (20:42)
[2023-03-03] MEDS: Pantoprazole 40 MG Vial IVPUSH SCH ×2 (01:17→12:26)
[2023-03-03] MEDS: Piperacillin/Tazobactam 3.375 GM in Sodium Chloride 0.9% 50 ML IV SCH ×4 (04:05→21:30)
[2023-03-03] MEDS: Albuterol/Ipratropium 3.0-0.5 MG/3 ML Neb Soln NEB SCH ×4 (06:15→20:57)
[2023-03-03] MEDS: Levothyroxine 150 MCG Tab PO SCH (06:16)
[2023-03-03 06:48] LABS: BASOPHILS ABSOLUTE AUTO 0.1 x10-3/uL (0.0-0.3); EOSINOPHILS ABSOLUTE AUTO 0.1 x10-3/uL (0.0-0.6); EOSINOPHILS PERCENT AUTO 1.6 % (0.1-6.8); HEMATOCRIT 30.8 % (38.3-50.1); HEMOGLOBIN 10.6 g/dL (12.9-17.7); LYMPHOCYTES ABSOLUTE AUTO 0.9 x10-3/uL (0.5-4.5); LYMPHOCYTES PERCENT AUTO 11.3 % (15.8-45.3); MEAN CORPUSCULAR HEMOGLOBIN 37.3 pg (27.0-33.3); MEAN CORPUSCULAR HGB CONC 34.5 g/dL (28.7-35.3); MEAN CORPUSCULAR VOLUME 108.1 fL (80.8-98.7); MEAN PLATELET VOLUME 7.5 fL (6.7-11.0); MONOCYTES ABSOLUTE AUTO 0.5 x10-3/uL (0.0-1.2); MONOCYTES PERCENT AUTO 5.9 % (5.5-15.2); NEUTROPHILS ABSOLUTE AUTO 6.2 x10-3/uL (1.7-6.9); NEUTROPHILS PERCENT AUTO 80.2 % (40.3-71.8); PLATELET COUNT,PLT 238 x10(3)uL (117-477); RED BLOOD CELL COUNT 2.85 x10(6)uL (3.90-5.90); RED CELL DISTRIBUTION WIDTH 13.3 % (12.4-15.0); WHITE BLOOD CELL COUNT,WBC 7.7 x10-3/uL (3.2-10.1)
[2023-03-03] MEDS: Sodium Chloride 0.9% 1,000 ML IV SCH ×2 (06:54→23:15)
[2023-03-03 07:00] LABS: A/G RATIO 0.7; ALANINE AMINOTRANSFERASE,ALT 27 U/L (12-36); ALBUMIN 2.5 g/dL (3.2-4.6); ALKALINE PHOSPHATASE 84 IU/L (56-112); ASPARTATE AMNIOTRANSFERASE,AST 20 IU/L (5-25); BILIRUBIN TOTAL 0.4 mg/dL (0.1-1.3); BLOOD UREA NITROGEN,BUN 11 mg/dL (7-18); BUN/CREATININE RATIO 12.2 (9-20); CALCIUM 8.1 mg/dL (8.6-10.2); CARBON DIOXIDE,CO2 30 mmol/L (21-32); CHLORIDE,CL 97 mmol/L (100-110); CREATININE 0.9 mg/dL (0.70-1.30); EST CRCL DRUG DOSING (CG) 69.43 mL/min; ESTIMATED GFR 95 mL/min (>60); GLUCOSE RANDOM 88 mg/dL (80-116); POTASSIUM,K 4.3 mmol/L (3.5-5.3); PROTEIN TOTAL,TP 6.1 g/dL (6.0-8.0); SODIUM,NA 131 mmol/L (135-145); VANCOMYCIN TROUGH 19.9 ug/mL (<0.8)
[2023-03-03] MEDS: Finasteride 5 MG Tab PO SCH (08:11)
[2023-03-03] MEDS: Docusate Sodium 100 MG Cap PO SCH (08:11)
[2023-03-03] MEDS: busPIRone 15 MG Tab PO SCH ×2 (08:12→20:57)
[2023-03-03] MEDS: Citalopram 10 MG Tab PO SCH (08:12)
[2023-03-03] MEDS: atorvaSTATin 10 MG Tab PO SCH (08:12)
[2023-03-03] MEDS: Midodrine 5 MG Tab PO SCH ×3 (08:13→18:06)
[2023-03-03] MEDS: risperiDONE 0.5 MG Tab PO SCH ×2 (08:15→21:07)
[2023-03-03] MEDS: Calcium Polycarbophil 625 MG Tab PO SCH ×2 (08:15→20:56)
[2023-03-03] MEDS: LORazepam 1 MG Tab PO SCH ×2 (08:17→16:00)
[2023-03-03] MEDS: Sodium Chloride 1 GM Tab PO SCH ×2 (08:18→20:57)
[2023-03-03] MEDS: lamoTRIgine 100 MG Tab PO SCH ×2 (08:18→20:57)
[2023-03-03] MEDS ORDERED: Non-Formulary Medication 1 Each (B12/Levomefolate Calcium/B-6 [Foltx Tablet] 1 EACH Tablet PO SCH (09:00)
[2023-03-03] MEDS: VANCOmycin 1.5 GM/300 ML 1.5 GM in Premix Bag 1 BAG IV SCH (12:36)
[2023-03-03] MEDS: Melatonin 3 MG Tab PO SCH (20:57)
[2023-03-03] MEDS: traZODone 100 MG Tab PO SCH (20:57)
[2023-03-03] MEDS: Enoxaparin 40 MG/0.4 ML Syringe SUBCUT SCH (20:59)
[2023-03-04] MEDS: Pantoprazole 40 MG Vial IVPUSH SCH ×3 (00:19→23:17)
[2023-03-04] MEDS: Piperacillin/Tazobactam 3.375 GM in Sodium Chloride 0.9% 50 ML IV SCH ×4 (03:21→22:25)
[2023-03-04] MEDS: Levothyroxine 150 MCG Tab PO SCH (05:12)
[2023-03-04] MEDS: Albuterol/Ipratropium 3.0-0.5 MG/3 ML Neb Soln NEB SCH ×4 (06:21→20:42)
[2023-03-04 07:59] LABS: HEMATOCRIT 32.1 % (38.3-50.1); HEMOGLOBIN 10.9 g/dL (12.9-17.7); MEAN CORPUSCULAR HEMOGLOBIN 36.7 pg (27.0-33.3); MEAN CORPUSCULAR HGB CONC 33.9 g/dL (28.7-35.3); MEAN CORPUSCULAR VOLUME 108.2 fL (80.8-98.7); MEAN PLATELET VOLUME 6.9 fL (6.7-11.0); PLATELET COUNT,PLT 207 x10(3)uL (117-477); RED BLOOD CELL COUNT 2.96 x10(6)uL (3.90-5.90); RED CELL DISTRIBUTION WIDTH 13.1 % (12.4-15.0); WHITE BLOOD CELL COUNT,WBC 4.9 x10-3/uL (3.2-10.1)
[2023-03-04 08:12] LABS: A/G RATIO 0.7; ALANINE AMINOTRANSFERASE,ALT 24 U/L (12-36); ALBUMIN 2.4 g/dL (3.2-4.6); ALKALINE PHOSPHATASE 86 IU/L (56-112); ASPARTATE AMNIOTRANSFERASE,AST 29 IU/L (5-25); BILIRUBIN TOTAL 0.3 mg/dL (0.1-1.3); BLOOD UREA NITROGEN,BUN 8 mg/dL (7-18); CALCIUM 8.1 mg/dL (8.6-10.2); CARBON DIOXIDE,CO2 29 mmol/L (21-32); CHLORIDE,CL 98 mmol/L (100-110); CREATININE 0.8 mg/dL (0.70-1.30); EST CRCL DRUG DOSING (CG) 78.11 mL/min; ESTIMATED GFR 99 mL/min (>60); GLUCOSE RANDOM 87 mg/dL (80-116); POTASSIUM,K 4.2 mmol/L (3.5-5.3); PROTEIN TOTAL,TP 6.1 g/dL (6.0-8.0); SODIUM,NA 132 mmol/L (135-145)
[2023-03-04 08:23] LABS: ANISOCYTOSIS FEW; EOSINOPHILS PERCENT MAN 3 % (0-5); LYMPHOCYTES PERCENT MAN 15 % (13-37); MONOCYTES PERCENT MAN 8 % (4-12); SEG NEUTROPHILS PERCENT MAN 74 % (46-82)
[2023-03-04] MEDS: LORazepam 1 MG Tab PO SCH ×2 (08:46→16:32)
[2023-03-04] MEDS: Calcium Polycarbophil 625 MG Tab PO SCH ×2 (08:47→20:43)
[2023-03-04] MEDS: Citalopram 10 MG Tab PO SCH (08:47)
[2023-03-04] MEDS: lamoTRIgine 100 MG Tab PO SCH ×2 (08:47→20:43)
[2023-03-04] MEDS: atorvaSTATin 10 MG Tab PO SCH (08:47)
[2023-03-04] MEDS: Sodium Chloride 1 GM Tab PO SCH ×2 (08:47→20:43)
[2023-03-04] MEDS: risperiDONE 0.5 MG Tab PO SCH ×2 (08:47→20:43)
[2023-03-04] MEDS: Docusate Sodium 100 MG Cap PO SCH (08:48)
[2023-03-04] MEDS: Midodrine 5 MG Tab PO SCH ×3 (08:48→18:10)
[2023-03-04] MEDS: Finasteride 5 MG Tab PO SCH (08:48)
[2023-03-04] MEDS: busPIRone 15 MG Tab PO SCH ×2 (08:48→20:42)
[2023-03-04] MEDS: VANCOmycin 1.5 GM/300 ML 1.5 GM in Premix Bag 1 BAG IV SCH (12:20)
[2023-03-04 15:22] LABS: HEMATOCRIT 31.5 % (38.3-50.1); HEMOGLOBIN 10.5 g/dL (12.9-17.7)
[2023-03-04] MEDS: Melatonin 3 MG Tab PO SCH (20:43)
[2023-03-04] MEDS: Sodium Chloride 0.9% 10 ML Syringe FLUSH PRN ×2 (22:55→23:19)
[2023-03-05] MEDS: Piperacillin/Tazobactam 3.375 GM in Sodium Chloride 0.9% 50 ML IV SCH (03:07)
[2023-03-05] MEDS: Sodium Chloride 0.9% 10 ML Syringe FLUSH PRN ×2 (03:43→11:31)
[2023-03-05 04:06] LABS: BILIRUBIN,URINE NEGATIVE (NEGATIVE); GLUCOSE,URINE NORMAL (NORMAL); KETONES,URINE NEGATIVE (NEGATIVE); LEUKOCYTE ESTERASE,URINE NEGATIVE (NEGATIVE); NITRITE,URINE NEGATIVE (NEGATIVE); OCCULT BLOOD,URINE NEGATIVE (NEGATIVE); PH,URINE 6.5 (5.0-6.5); PROTEIN,URINE NEGATIVE (NEGATIVE); UROBILINOGEN,URINE NORMAL (NEGATIVE)
[2023-03-05 04:07] LABS: APPEARANCE,URINE CLEAR (CLEAR); BACTERIA,URINE OCCASIONAL (NS); COLOR,URINE YELLOW (YELLOW); RBC,URINE 0-5 (0-5); SQUAMOUS EPITHELIAL CELLS,UR RARE (NS,R,O); WBC,URINE 0-5 (0-5)
[2023-03-05] MEDS: Albuterol/Ipratropium 3.0-0.5 MG/3 ML Neb Soln NEB SCH ×4 (06:03→20:23)
[2023-03-05] MEDS: Levothyroxine 150 MCG Tab PO SCH (06:03)
[2023-03-05 07:30] LABS: BASOPHILS ABSOLUTE AUTO 0.1 x10-3/uL (0.0-0.3); BASOPHILS PERCENT AUTO 1.5 % (0.3-3.8); EOSINOPHILS ABSOLUTE AUTO 0.2 x10-3/uL (0.0-0.6); EOSINOPHILS PERCENT AUTO 4.8 % (0.1-6.8); HEMATOCRIT 33.1 % (38.3-50.1); HEMOGLOBIN 11.2 g/dL (12.9-17.7); LYMPHOCYTES PERCENT AUTO 23.6 % (15.8-45.3); MEAN CORPUSCULAR HEMOGLOBIN 36.3 pg (27.0-33.3); MEAN CORPUSCULAR HGB CONC 33.9 g/dL (28.7-35.3); MONOCYTES ABSOLUTE AUTO 0.5 x10-3/uL (0.0-1.2); MONOCYTES PERCENT AUTO 10.7 % (5.5-15.2); NEUTROPHILS ABSOLUTE AUTO 2.6 x10-3/uL (1.7-6.9); NEUTROPHILS PERCENT AUTO 59.4 % (40.3-71.8); PLATELET COUNT,PLT 245 x10(3)uL (117-477); RED BLOOD CELL COUNT 3.08 x10(6)uL (3.90-5.90); RED CELL DISTRIBUTION WIDTH 13.1 % (12.4-15.0); WHITE BLOOD CELL COUNT,WBC 4.4 x10-3/uL (3.2-10.1)
[2023-03-05 07:33] LABS: MEAN CORPUSCULAR VOLUME 107.2 fL (80.8-98.7)
[2023-03-05 07:43] LABS: A/G RATIO 0.6; ALANINE AMINOTRANSFERASE,ALT 20 U/L (12-36); ALBUMIN 2.5 g/dL (3.2-4.6); ALKALINE PHOSPHATASE 94 IU/L (56-112); ASPARTATE AMNIOTRANSFERASE,AST 19 IU/L (5-25); BILIRUBIN TOTAL 0.3 mg/dL (0.1-1.3); BLOOD UREA NITROGEN,BUN 7 mg/dL (7-18); BUN/CREATININE RATIO 7.8 (9-20); CALCIUM 8.5 mg/dL (8.6-10.2); CARBON DIOXIDE,CO2 29 mmol/L (21-32); CHLORIDE,CL 97 mmol/L (100-110); CREATININE 0.9 mg/dL (0.70-1.30); EST CRCL DRUG DOSING (CG) 69.43 mL/min; ESTIMATED GFR 95 mL/min (>60); GLUCOSE RANDOM 83 mg/dL (80-116); POTASSIUM,K 4.2 mmol/L (3.5-5.3); PROTEIN TOTAL,TP 6.4 g/dL (6.0-8.0); SODIUM,NA 130 mmol/L (135-145)
[2023-03-05] MEDS ORDERED: Penicillin V Potassium 250 MG Tab PO SCH (08:00)
[2023-03-05] MEDS: Finasteride 5 MG Tab PO SCH (08:29)
[2023-03-05] MEDS: lamoTRIgine 100 MG Tab PO SCH ×2 (08:29→20:24)
[2023-03-05] MEDS: Midodrine 5 MG Tab PO SCH ×3 (08:30→18:15)
[2023-03-05] MEDS: atorvaSTATin 10 MG Tab PO SCH (08:30)
[2023-03-05] MEDS: busPIRone 15 MG Tab PO SCH ×2 (08:30→20:23)
[2023-03-05] MEDS: Citalopram 10 MG Tab PO SCH (08:30)
[2023-03-05] MEDS: Docusate Sodium 100 MG Cap PO SCH (08:30)
[2023-03-05] MEDS: Calcium Polycarbophil 625 MG Tab PO SCH ×2 (08:31→20:23)
[2023-03-05] MEDS: risperiDONE 0.5 MG Tab PO SCH ×2 (08:31→20:24)
[2023-03-05] MEDS: Sodium Chloride 1 GM Tab PO SCH ×2 (08:31→20:24)
[2023-03-05] MEDS: LORazepam 1 MG Tab PO SCH ×2 (08:38→16:16)
[2023-03-05] MEDS: Doxycycline 100 MG Tab PO SCH ×2 (08:40→20:24)
[2023-03-05] MEDS: Amoxicillin/Clavulanate K 875-125 MG Tab PO SCH ×2 (08:40→18:15)
[2023-03-05] MEDS: Pantoprazole 40 MG Vial IVPUSH SCH ×2 (11:30→23:55)
[2023-03-05] MEDS: Melatonin 3 MG Tab PO SCH (20:24)
[2023-03-06] MEDS: Sodium Chloride 0.9% 10 ML Syringe FLUSH PRN
[2023-03-06] MEDS: Levothyroxine 150 MCG Tab PO SCH (05:21)
[2023-03-06] MEDS: Albuterol/Ipratropium 3.0-0.5 MG/3 ML Neb Soln NEB SCH ×4 (06:00→20:16)
[2023-03-06] MEDS: LORazepam 1 MG Tab PO SCH ×2 (09:12→17:15)
[2023-03-06] MEDS: Docusate Sodium 100 MG Cap PO SCH (09:13)
[2023-03-06] MEDS: risperiDONE 0.5 MG Tab PO SCH ×2 (09:13→20:15)
[2023-03-06] MEDS: Calcium Polycarbophil 625 MG Tab PO SCH ×2 (09:13→20:15)
[2023-03-06] MEDS: Citalopram 10 MG Tab PO SCH (09:16)
[2023-03-06] MEDS: busPIRone 15 MG Tab PO SCH ×2 (09:16→20:15)
[2023-03-06] MEDS: Midodrine 5 MG Tab PO SCH ×3 (09:18→20:15)
[2023-03-06] MEDS: lamoTRIgine 100 MG Tab PO SCH ×2 (09:19→20:16)
[2023-03-06] MEDS: atorvaSTATin 10 MG Tab PO SCH (09:19)
[2023-03-06] MEDS: Polyethylene Glycol 3350 Powder 17 GM Packet PO SCH (09:20)
[2023-03-06] MEDS: Finasteride 5 MG Tab PO SCH (09:21)
[2023-03-06] MEDS: Sodium Chloride 1 GM Tab PO SCH ×2 (09:21→20:15)
[2023-03-06] MEDS: Amoxicillin/Clavulanate K 875-125 MG Tab PO SCH ×2 (09:24→17:31)
[2023-03-06] MEDS: Doxycycline 100 MG Tab PO SCH ×2 (09:24→22:00)
[2023-03-06] MEDS: Melatonin 3 MG Tab PO SCH (20:15)
[2023-03-07] MEDS: Levothyroxine 150 MCG Tab PO SCH (05:50)
[2023-03-07] MEDS: Albuterol/Ipratropium 3.0-0.5 MG/3 ML Neb Soln NEB SCH ×2 (06:16→11:24)
[2023-03-07] MEDS: Amoxicillin/Clavulanate K 875-125 MG Tab PO SCH (09:27)
[2023-03-07] MEDS: atorvaSTATin 10 MG Tab PO SCH (09:28)
[2023-03-07] MEDS: Finasteride 5 MG Tab PO SCH (09:28)
[2023-03-07] MEDS: LORazepam 1 MG Tab PO SCH (09:28)
[2023-03-07] MEDS: Docusate Sodium 100 MG Cap PO SCH (09:28)
[2023-03-07] MEDS: risperiDONE 0.5 MG Tab PO SCH (09:28)
[2023-03-07] MEDS: Doxycycline 100 MG Tab PO SCH (09:28)
[2023-03-07] MEDS: Citalopram 10 MG Tab PO SCH (09:29)
[2023-03-07] MEDS: Sodium Chloride 1 GM Tab PO SCH (10:04)
[2023-03-07] MEDS: Calcium Polycarbophil 625 MG Tab PO SCH (10:04)
[2023-03-07] MEDS: lamoTRIgine 100 MG Tab PO SCH (10:04)
[2023-03-07] MEDS: Midodrine 5 MG Tab PO SCH (10:04)
[2023-03-07] MEDS: busPIRone 15 MG Tab PO SCH (10:05)
== END 2023-03-07 11:22 | DRG 698 ==
LOC: FB.ED 19:50 → FB.MS 03-02
PROVIDERS: ADMIT Emergency Medicine; ATTEND Family Medicine
DX: T83.511A Infection and inflammatory reaction due to indwelling urethral catheter, initial encounter (principal); A41.9 Sepsis, unspecified organism; R65.20 Severe sepsis without septic shock; J18.9 Pneumonia, unspecified organism; J96.01 Acute respiratory failure with hypoxia; J96.02 Acute respiratory failure with hypercapnia; E87.1 Hypo-osmolality and hyponatremia; G93.41 Metabolic encephalopathy; K62.5 Hemorrhage of anus and rectum; Z79.899 Other long term (current) drug therapy; G93.40 Encephalopathy, unspecified; Z86.16 Personal history of COVID-19; Z20.822 Contact with and (suspected) exposure to COVID-19; Z51.5 Encounter for palliative care; Z66 Do not resuscitate; N39.0 Urinary tract infection, site not specified; E86.0 Dehydration; G30.9 Alzheimer's disease, unspecified; F02.80 Dementia in other diseases classified elsewhere, unspecified severity, without behavioral disturbance, psychotic disturbance, mood disturbance, and anxiety; Q90.9 Down syndrome, unspecified; I50.9 Heart failure, unspecified; H91.93 Unspecified hearing loss, bilateral; N40.1 Benign prostatic hyperplasia with lower urinary tract symptoms; R33.8 Other retention of urine; D53.9 Nutritional anemia, unspecified; E03.9 Hypothyroidism, unspecified; I95.89 Other hypotension; Z11.52 Encounter for screening for COVID-19; Z79.890 Hormone replacement therapy
CPT/HCPCS: 0241U; 36415; 71045; 80048; 80053; 80202; 81001; 82272; 82947; 83605; 83735; 83880; 84484; 85014; 85018; 85025; 86140; 87040; 87086; 87088; 87186; 93005; 94640; 96365; 96366; 96367; 99285; A9270-GY; C9113; J1650; J2543; J3370; J3490; J7030; J7040; J7620

== ENCOUNTER 2023-04-08 15:49 | Emergency (ER) | payer MEDICARE, MEDICAID ==
[2023-04-08] MEDS ORDERED: Sodium Chloride 0.9% 10 ML Syringe FLUSH PRN (15:57)
[2023-04-08 16:35] LABS: BASOPHILS PERCENT AUTO 0.6 % (0.3-3.8); EOSINOPHILS ABSOLUTE AUTO 0.2 x10-3/uL (0.0-0.6); EOSINOPHILS PERCENT AUTO 3.8 % (0.1-6.8); HEMATOCRIT 36.6 % (38.3-50.1); HEMOGLOBIN 12.5 g/dL (12.9-17.7); LYMPHOCYTES ABSOLUTE AUTO 0.9 x10-3/uL (0.5-4.5); LYMPHOCYTES PERCENT AUTO 15.3 % (15.8-45.3); MEAN CORPUSCULAR HEMOGLOBIN 36.4 pg (27.0-33.3); MEAN CORPUSCULAR HGB CONC 34.2 g/dL (28.7-35.3); MEAN CORPUSCULAR VOLUME 106.3 fL (80.8-98.7); MEAN PLATELET VOLUME 6.6 fL (6.7-11.0); MONOCYTES ABSOLUTE AUTO 0.3 x10-3/uL (0.0-1.2); MONOCYTES PERCENT AUTO 4.6 % (5.5-15.2); NEUTROPHILS ABSOLUTE AUTO 4.6 x10-3/uL (1.7-6.9); NEUTROPHILS PERCENT AUTO 75.7 % (40.3-71.8); PLATELET COUNT,PLT 335 x10(3)uL (117-477); RED CELL DISTRIBUTION WIDTH 13.5 % (12.4-15.0)
[2023-04-08 16:41] LABS: A/G RATIO 0.7; ALANINE AMINOTRANSFERASE,ALT 22 U/L (12-36); ALBUMIN 2.8 g/dL (3.2-4.6); ALKALINE PHOSPHATASE 102 IU/L (56-112); ASPARTATE AMNIOTRANSFERASE,AST 24 IU/L (5-25); BILIRUBIN TOTAL 0.4 mg/dL (0.1-1.3); BLOOD UREA NITROGEN,BUN 16 mg/dL (7-18); CALCIUM 8.8 mg/dL (8.6-10.2); CARBON DIOXIDE,CO2 28 mmol/L (21-32); EST CRCL DRUG DOSING (CG) 64.92 mL/min; ESTIMATED GFR 84 mL/min (>60); GLUCOSE RANDOM 100 mg/dL (80-116); POTASSIUM,K 4.7 mmol/L (3.5-5.3); PROTEIN TOTAL,TP 7.1 g/dL (6.0-8.0); SODIUM,NA 120 mmol/L (135-145)
[2023-04-08 16:43] LABS: CHLORIDE,CL 86 mmol/L (100-110)
[2023-04-08 16:45] LABS: RED BLOOD CELL COUNT 3.44 x10(6)uL (3.90-5.90)
[2023-04-08] MEDS ORDERED: Sodium Chloride 0.9% 1,000 ML IV SCH (17:00)
[2023-04-08 17:27] LABS: CORONAVIRUS COVID-19 NAA NEGATIVE (NEGATIVE); INFLUENZA A NAA NEGATIVE (NEGATIVE); INFLUENZA B NAA NEGATIVE (NEGATIVE)
[2023-04-08] MEDS ORDERED: LORazepam 2 MG/ML SDV IVPUSH ONE ×2 (17:45→18:04)
[2023-04-08] MEDS ORDERED: Iopamidol 755 Mg/ML 100 ML Bottle IV SCH (18:30)
== END 2023-04-08 19:30 | disposition home or self-care (01) ==
LOC: FB.ED 15:49
DX: E87.1 Hypo-osmolality and hyponatremia (principal); J06.9 Acute upper respiratory infection, unspecified; I50.9 Heart failure, unspecified; E03.9 Hypothyroidism, unspecified; Z86.16 Personal history of COVID-19; Z79.899 Other long term (current) drug therapy
CPT/HCPCS: 0240U; 36415; 71045; 71275; 80053; 83880; 84484; 85025; 85379; 93005; 96361; 96374; 99283; 99284-25; J2060; J7030; Q9967

== ENCOUNTER 2023-04-24 12:08 | Emergency (ER) | payer MEDICARE, MEDICAID ==
[2023-04-24] MEDS ORDERED: Sodium Chloride 0.9% 10 ML Syringe FLUSH PRN (12:25)
[2023-04-24] MEDS ORDERED: Sodium Chloride 0.9% 1,000 ML IV SCH (12:30)
[2023-04-24 12:47] LABS: BASOPHILS PERCENT AUTO 0.5 % (0.3-3.8); EOSINOPHILS ABSOLUTE AUTO 0.2 x10-3/uL (0.0-0.6); HEMATOCRIT 35.9 % (38.3-50.1); HEMOGLOBIN 12.2 g/dL (12.9-17.7); LYMPHOCYTES ABSOLUTE AUTO 1.1 x10-3/uL (0.5-4.5); LYMPHOCYTES PERCENT AUTO 10.6 % (15.8-45.3); MEAN CORPUSCULAR HEMOGLOBIN 35.9 pg (27.0-33.3); MEAN CORPUSCULAR VOLUME 105.7 fL (80.8-98.7); MEAN PLATELET VOLUME 7.1 fL (6.7-11.0); MONOCYTES ABSOLUTE AUTO 0.3 x10-3/uL (0.0-1.2); NEUTROPHILS ABSOLUTE AUTO 8.4 x10-3/uL (1.7-6.9); NEUTROPHILS PERCENT AUTO 83.9 % (40.3-71.8); PLATELET COUNT,PLT 339 x10(3)uL (117-477); RED CELL DISTRIBUTION WIDTH 13.8 % (12.4-15.0); WHITE BLOOD CELL COUNT,WBC 10.1 x10-3/uL (3.2-10.1)
[2023-04-24 12:53] LABS: BLOOD UREA NITROGEN,BUN 18 mg/dL (7-18); BUN/CREATININE RATIO 16.4 (9-20); CALCIUM 9.1 mg/dL (8.6-10.2); CARBON DIOXIDE,CO2 29 mmol/L (21-32); CHLORIDE,CL 93 mmol/L (100-110); CREATININE 1.1 mg/dL (0.70-1.30); ESTIMATED GFR 75 mL/min (>60); GLUCOSE RANDOM 107 mg/dL (80-116); POTASSIUM,K 4.3 mmol/L (3.5-5.3); SODIUM,NA 129 mmol/L (135-145)
[2023-04-24 12:59] LABS: A/G RATIO 0.6; ALANINE AMINOTRANSFERASE,ALT 63 U/L (12-36); ALBUMIN 2.8 g/dL (3.2-4.6); ALKALINE PHOSPHATASE 305 IU/L (56-112); ASPARTATE AMNIOTRANSFERASE,AST 42 IU/L (5-25); BILIRUBIN TOTAL 0.5 mg/dL (0.1-1.3); PROTEIN TOTAL,TP 7.3 g/dL (6.0-8.0)
[2023-04-24 13:05] LABS: TROPONIN I 15.9 pg/mL (4.0-60.3)
== END 2023-04-24 15:00 | disposition home or self-care (01) ==
LOC: FB.ED 12:08
DX: I95.9 Hypotension, unspecified (principal); I50.9 Heart failure, unspecified; R09.02 Hypoxemia; E87.1 Hypo-osmolality and hyponatremia; Q90.9 Down syndrome, unspecified; E03.9 Hypothyroidism, unspecified; Z51.5 Encounter for palliative care; Z86.16 Personal history of COVID-19; Z79.899 Other long term (current) drug therapy
CPT/HCPCS: 36415; 80053; 83880; 84484; 85025; 93005; 99285